=== PATIENT | female | born 1950 | race Caucasian/White ===

== ENCOUNTER 2017-02-13 09:00 | Inpatient (IN) | payer OTHER, MEDICARE ==
[~2017-02-13] VITALS: Ht 177.8 cm; Wt 114.8 kg
--- NOTE | 2017-02-13 09:15 | ED GI/GU/ABDOMINAL COMPLAINT ---
History of Present Illness General Chief Complaint: Abdominal Pain/Flank Pain Stated Complaint: ABD PAIN Source: patient, old records Exam Limitations: no limitations Allergies Coded Allergies: lactose (UNKNOWN 02/13/17) Reconcile Medications Fluticasone Propionate 50 MCG/ACTUATION SPRAY.SUSP 1 SPRAY NASB PRN POST NASAL DRIP (Reported) Psyllium Husk (Metamucil) (Unknown Strength) CAPSULE (Unknown Dose) PO DAILY SUPPLEMENT (Reported) Triage Nurses Notes Reviewed? yes LMP (ages 10-50): hysterectomy ? n Is pt currently ? No Onset: Abrupt Duration: hour(s): (12), constant, waxing and waning Timing: recent history Quality/Severity: bloating Severity Numbers: 4 Location: epigastric, left upper quadrant, right upper quadrant Radiation: no radiation Activities at Onset: eating Prior Abdominal Problems: none No Modifying Factors: none Associated Symptoms: denies HPI: 66-year-old female history of gastric bypass hysterectomy cholecystectomy aortic stenosis presents the ER for evaluation complaining of right upper quadrant epigastric and left upper quadrant abdominal pain described as a bloating sensation since 9:00 last night. She denies any nausea vomiting diarrhea. She had a small bowel movement this morning no black or bloody stools no urinary urgency frequency dysuria. Pain is nonradiating no chest pain active pain. She states the symptoms came on after eating stuffed cabbage yesterday. No sick contacts. She took an [id number] antacid without relief. She went to urgent care this morning who sent her here for further evaluation. The patient states that she did have wine with dinner last night she denies tobacco use. (Mauro SHOEMAKER,Tolu) Vital Signs & Intake/Output Vital Signs & Intake/Output Vital Signs Date Time Temp Pulse Resp B/P B/P Pulse O2 O2 Flow FiO2 Mean Ox Delivery Rate 02/13 1253 98.1 90 18 142/88 98 Room Air 02/13 1108 98.2 81 17 147/82 95 Room Air 02/13 0920 96 Room Air Room Air 02/13 0908 98.1 84 16 150/98 97 Room Air (Corina STEPHEN,Fabio Roblero) Past History Travel History Traveled to [place] past 21 day No Medical History Any Pertinent Medical History? see below for history Neurological: vertigo EENT: cataracts Cardiovascular: aortic stenosis Respiratory: pneumonia Gastrointestinal: GASTRIC BYPASS Hepatic: NONE Renal: NONE Musculoskeletal: NONE Psychiatric: NONE Endocrine: obesity Surgical History Surgical History: cholecystectomy, hysterectomy, gastric bypass Psychosocial History What is your primary language Tajik Tobacco Use: Quit >30 days ago Family History Hx Contributory? No (Tolu Bello) Review of Systems Review of Systems Constitutional: Reports: see HPI. Comments Review of systems: See HPI, All other systems negative. Constitutional, no chills no fever, no malaise HEENT: no sore throat no congestion Cardiovascular: No chest pain , no palpitation Skin: no rashes, no change in skin Respiratory: No dyspnea no cough GI: see hpi : No dysuria No hematuria, no frequency Muscle skeletal: No joint pain, no back pain Neurologic: , no headache Heme/endocrine: No bruising (Tolu Bello) Physical Exam Physical Exam General Appearance: well developed/nourished, alert, awake Gastrointestinal: normal bowel sounds Comments: Well-developed well-nourished person in no acute distress HEENT: Normal EENT exam; PERRL, EOMI, HEAD is atraumatic. moist mucous membranes. Neck: Supple, normal range of motion Back:no CVA tenderness. Full range of motion Cardiovascular: Regular rate and rhythms (+) murmur Respiratory: Chest nontender.There were no bony deformities, no asymmetry. No respiratory distress. Patient speaking in full complete sentences. Breath sounds clear to auscultation bilaterally: NO W/R/R Abdomen: Soft, nontender nondistended, no appreciable organomegaly. Normal bowel sounds. No rebound/guarding, No appreciable enlargement of the abdominal aorta, No ascites. Extremity: No edema, full range of motion of extremities Neuro: Alert oriented x3, motor sensory normal, There were no obvious focal neurologic abnormalities. Skin: No appreciable rash on exposed skin, skin is warm and dry. Psych: Mood and affect is normal, memory and judgment is normal. Core Measures ACS in differential dx? Yes Sepsis Present: No Sepsis Focused Exam Completed? No (Tolu Bello) Progress Differential Diagnosis: AAA, AMI, appendicitis, bowel obstruction, colon cancer, diverticulitis, gastritis, hepatitis, inflamm bowel dis, pancreatitis, peptic ulcer, PUD/GERD, perforated viscous, SBO Plan of Care: Orders Procedure Date/time Status CBC WITHOUT DIFFERENTIAL 02/14 599 Active BASIC ELECTROLYTES PLUS BUN&CR 01/01 0600 Active Nothing by Mouth 02/13 D Active Vital Signs 02/13 1504 Active Teach/Educate 02/13 1504 Active Pain Treatment and Response 02/13 1504 Active Nutritional Intake, Monitor 02/13 1504 Active Isolation 02/13 1504 Active Intake & Output 02/13 1504 Active Patient Care Conference 02/13 1504 Active Activity/Ambulation 02/13 1504 Active Pathway - chart 02/13 1341 Active Code Status 02/13 1341 Active Patient Data 02/13 1332 Active TROPONIN LEVEL 02/13 0915 Complete LIPASE 02/13 0915 Complete COMPREHENSIVE METABOLIC PANEL 02/13 0915 Complete CBC WITHOUT DIFFERENTIAL 02/13 0915 Complete AMYLASE 02/13 0915 Complete EKG 02/[address] in observation 02/13 UNK Active VTE Mechanical Prophylaxis 02/13 UNK Active Vital Signs 02/13 UNK Active Intake & Output 02/13 UNK Active CIWA 02/13 UNK Complete Activity/Ambulation 02/13 UNK Active Current Medications Sig/Nancy Start time Last Medication Dose Stop Time Status Admin Fluticasone 1 SPRAY DAILY NEEDED PRN 02/13 1400 AC Propionate (Flonase) Heparin Sodium 5,000 UNIT Q8 02/13 1400 AC 02/13 (Porcine) 1406 Acetaminophen 1,000 MG Q6P PRN 02/13 1345 AC (Ofirmev) N/A 1 UNIT (No Carrier) Dextrose/Sodium 1,000 ML .Q8H 02/13 1345 AC Chloride (D5-Normal Saline) Morphine Sulfate 2 MG Q3P PRN 02/13 1345 AC (Morphine) Morphine Sulfate 4 MG Q3P PRN 02/13 1345 AC (Morphine) Ondansetron HCl 4 MG Q6-PRN PRN 02/13 1345 AC (Zofran) Laboratory Tests 02/13/17 0935: Anion Gap 10, Estimated GFR > 60, BUN/Creatinine Ratio 18.6, Glucose 119 H, Calcium 9.4, Total Bilirubin 1.1, AST 42 H, ALT 34, Alkaline Phosphatase 71, Troponin I < 0.01, Total Protein 6.9, Albumin 4.2, Globulin 2.7, Albumin/ Globulin Ratio 1.6, Amylase < 30 L, Lipase 102, CBC w Diff NO MAN DIFF REQ, RBC 5.17, MCV 95.7, MCH 31.7 H, RDW 13.1, MPV 8.3, Gran % 71.5, Lymphocytes % 18.5 L, Monocytes % 8.7, Eosinophils % 1.0, Basophils % 0.3, Absolute Granulocytes 4.7, Absolute Lymphocytes 1.2, Absolute Monocytes 0.6, Absolute Eosinophils 0.1, Absolute Basophils 0, PUBS MCHC 33.1 pt is declining anything for pain when offered. labs and ct ordered. case d/w dr quevedo agrees with plan 1030 D/W THE PT ALL OF HER LABS TO DATE, AGAIN DECLINING ANYTHING WHEN OFFERED pending ct [address], on repeat eval pt resting in nad 1215 d/w the pt her ct findings, she is again declining anything fo rpain when offered. no nausea, she has had no vomiting. call placed to surgery. [address] with [address] dupont will have surgical pa eval pt 1230 CASE D/W SURGICAL PA will eval pt pt now reports to pain, toradol 30mg iv, iv fluids ordered PT will be admitted to surgical service. Diagnostic Imaging: Viewed by Me: CT Scan. Discussed w/RAD: CT Scan. Radiology Impression: PATIENT: ANTONELLA FAIRCHILD PRESENT AGE: 66 PATIENT ACCOUNT NO: [id number] : 49 LOCATION: [facility] ORDERING PHYSICIAN: Tolu SHOEMAKER SERVICE DATE: 02/13/17 EXAM TYPE: CAT - CT ABD & PELVIS W ORAL & IV CO EXAMINATION: CT ABDOMEN AND PELVIS WITH CONTRAST CLINICAL INFORMATION: History of gastric bypass. Right upper quadrant and left upper quadrant pain. History of cholecystectomy and hysterectomy. COMPARISON: None TECHNIQUE: Multidetector volumetric imaging was performed of the abdomen and pelvis following oral contrast and IV administration of 100 mL of Optiray 320 intravenous contrast. Sagittal and coronal reformatted images were obtained on the technologist's workstation. DLP: 1445 mGy-cm FINDINGS: LUNG BASES: The visualized lung bases are unremarkable. There is calcification at the aortic root and evidence of coronary artery calcification. LIVER, GALLBLADDER, AND BILIARY TREE: The right hemidiaphragm is elevated. The liver is normal in size, shape, and attenuation. No focal hepatic lesion or biliary ductal dilatation is present. Gallbladder is absent. No dilatation of the intrahepatic or extra hepatic bile ducts. PANCREAS: Unremarkable. SPLEEN: The spleen is normal in size. A benign hypodense lesion in the upper aspect of the spleen measures 1.8 cm in size and may reflect a splenic cyst. There is also a small adjacent splenule. ADRENAL GLANDS: Unremarkable. KIDNEYS AND URETERS: The kidneys are normal in size, shape, and attenuation. No hydronephrosis, hydroureter, or calculi seen. No perinephric stranding. BLADDER: Unremarkable. ABDOMINAL WALL: Evidence of extensive abdominal wall surgery with mesh with multiple bowel loops immediately deep to the mesh and a lobular contour to the abdominal wall mesh. GASTROINTESTINAL TRACT: Evidence of gastric bypass with contrast in the gastric pouch and proximal jejunum with no evidence of contrast extravasation or obstruction at this level. There is no contrast in the remnant stomach or duodenum. The proximal and mid small bowel are nondilated. There is evidence of a distal small bowel obstruction in the ileum proximal to the terminal ileum with a sharp transition zone identified in the right lower quadrant (axial image 69, series 2 and coronal image 59, series 602). This finding may be secondary to adhesions. The small bowel immediately proximal to this level is dilated up to 3.6 cm in diameter. The more proximal and mid small bowel in the central and left abdomen is nondilated. The administered oral contrast has not opacified the dilated small bowel loops at this time. A trace adjacent interloop fluid is identified with mild mesenteric edema. No additional findings. Multiple diverticula are seen in the colon with no CT manifestations of diverticulitis. These findings are most prominent in the left colon. Appendix is normal. LYMPH NODES: Normal. VASCULAR: Abdominal aortic calcification is seen. No evidence of aneurysm. PELVIC VISCERA: Status post hysterectomy. No evidence of pelvic mass. OSSEOUS STRUCTURES: Moderate facet arthropathy. Left convex lumbar scoliosis. Osteophyte formation at the bilateral acetabula. IMPRESSION: 1. Distal ileal small bowel obstruction with bowel loops dilated up to 3.6 cm and transition zone in the right lower quadrant. The administered oral contrast has not passed into dilated bowel loops. 2. Abdominal wall mesh with irregular contour to the abdominal wall. No discrete hernia is identified. 3. No evidence of obstruction at the level of the gastric bypass. DICTATED BY: Denys Craig MD DATE/TIME DICTATED:02/13/171130 CLIENT CONSULTANT:MALIKA DATE/ TIME TRANSCRIBED:02/13/171130 CONFIDENTIAL, DO NOT COPY WITHOUT APPROPRIATE AUTHORIZATION. <Electronically signed in Other Vendor System> SIGNED BY: Denys Craig MD 02/13/17 1207 Initial ED EKG: nsr at 80, lad, no acute st seg changes (Tolu Bello) Departure Departure Time of Disposition: 1310 Disposition: STILL A PATIENT Condition: Stable Clinical Impression Primary Impression: SBO (small bowel obstruction) Secondary Impressions: Abdominal pain Qualifiers: Abdominal location: generalized Qualified Code: R10.84 - Generalized abdominal pain Referrals: Erma Alfaro MD Additional Instructions: Bentyl for abdominal pain. follow up with your pmd this week, bland diet, clear liquids. return at anytime sooner with any concerns Departure Forms: Customer Survey General Discharge Information Admission Note Spoke With: Moustapha STEPHEN,Marcos Britton Documentation of Exam: Documentation of any treatments & extenuating circumstances including Concerns Regarding Discharge (functional status, medication knowledge or non-compliance, living conditions, etc.) that warrant an admission rather than observation: surgical eval, iv fluids, iv pain control, preamture discharge would be medically harmful (Tolu Bello) PA/NEIGHBORHOOD CONSERVATION OFFICER Co-Sign Statement Statement: ED Attending supervision documentation- [X] I saw and evaluated the patient. I have also reviewed all the pertinent lab results and diagnostic results. I agree with the findings and the plan of care as documented in the PA's/NEIGHBORHOOD CONSERVATION OFFICER's documentation. [X] I have reviewed the ED Record and agree with the PA's/NEIGHBORHOOD CONSERVATION OFFICER's documentation. [] Additions or exceptions (if any) to the PAs/NEIGHBORHOOD CONSERVATION OFFICER's note and plan are summarized below: [ABD PAIN, NO VOMITING, DISTAL SBO ON CT SCAN.] (Corina STEPHEN,Fabio Roblero) (Corina STEPHEN,Fabio Roblero)
[2017-02-13 10:07] LABS: ABSOLUTE BASOPHIL COUNT 0 /CUMM (0.0-0.2); ABSOLUTE EOSINOPHIL COUNT 0.1 /CUMM (0.0-0.7); ABSOLUTE GRANULOCYTE CT 4.7 /CUMM (1.4-6.5); ABSOLUTE LYMPH COUNT 1.2 /CUMM (1.2-3.4); ABSOLUTE MONOCYTE COUNT 0.6 /CUMM (0.10-0.60); BASOPHIL % 0.3 % (0.0-2.0); GRANULOCYTE % 71.5 % (42.2-75.2); HEMATOCRIT 49.4 % (37-47); MEAN CORPUSCULAR HGB 31.7 PG (27.0-31.0); MEAN CORPUSCULAR HGB CONC 33.1 G/DL (33.0-37.0); MEAN CORPUSCULAR VOLUME 95.7 FL (81.0-99.0); MEAN PLATELET VOLUME 8.3 FL (7.4-10.4); PLATELET COUNT 189 /CUMM (130-400); RBC DISTRIBUTION WIDTH 13.1 % (11.5-14.5); RED BLOOD CELL CT 5.17 /CUMM (4.20-5.40); WHITE BLOOD CELL COUNT 6.5 /CUMM (4.8-10.8)
--- NOTE | 2017-02-13 12:07 | CT SCAN REPORT ---
EXAMINATION: CT ABDOMEN AND PELVIS WITH CONTRAST CLINICAL INFORMATION: History of gastric bypass. Right upper quadrant and left upper quadrant pain. History of cholecystectomy and hysterectomy. COMPARISON: None TECHNIQUE: Multidetector volumetric imaging was performed of the abdomen and pelvis following oral contrast and IV administration of 100 mL of Optiray 320 intravenous contrast. Sagittal and coronal reformatted images were obtained on the technologist's workstation. DLP: 1445 mGy-cm FINDINGS: LUNG BASES: The visualized lung bases are unremarkable. There is calcification at the aortic root and evidence of coronary artery calcification. LIVER, GALLBLADDER, AND BILIARY TREE: The right hemidiaphragm is elevated. The liver is normal in size, shape, and attenuation. No focal hepatic lesion or biliary ductal dilatation is present. Gallbladder is absent. No dilatation of the intrahepatic or extra hepatic bile ducts. PANCREAS: Unremarkable. SPLEEN: The spleen is normal in size. A benign hypodense lesion in the upper aspect of the spleen measures 1.8 cm in size and may reflect a splenic cyst. There is also a small adjacent splenule. ADRENAL GLANDS: Unremarkable. KIDNEYS AND URETERS: The kidneys are normal in size, shape, and attenuation. No hydronephrosis, hydroureter, or calculi seen. No perinephric stranding. BLADDER: Unremarkable. ABDOMINAL WALL: Evidence of extensive abdominal wall surgery with mesh with multiple bowel loops immediately deep to the mesh and a lobular contour to the abdominal wall mesh. GASTROINTESTINAL TRACT: Evidence of gastric bypass with contrast in the gastric pouch and proximal jejunum with no evidence of contrast extravasation or obstruction at this level. There is no contrast in the remnant stomach or duodenum. The proximal and mid small bowel are nondilated. There is evidence of a distal small bowel obstruction in the ileum proximal to the terminal ileum with a sharp transition zone identified in the right lower quadrant (axial image 69, series 2 and coronal image 59, series 602). This finding may be secondary to adhesions. The small bowel immediately proximal to this level is dilated up to 3.6 cm in diameter. The more proximal and mid small bowel in the central and left abdomen is nondilated. The administered oral contrast has not opacified the dilated small bowel loops at this time. A trace adjacent interloop fluid is identified with mild mesenteric edema. No additional findings. Multiple diverticula are seen in the colon with no CT manifestations of diverticulitis. These findings are most prominent in the left colon. Appendix is normal. LYMPH NODES: Normal. VASCULAR: Abdominal aortic calcification is seen. No evidence of aneurysm. PELVIC VISCERA: Status post hysterectomy. No evidence of pelvic mass. OSSEOUS STRUCTURES: Moderate facet arthropathy. Left convex lumbar scoliosis. Osteophyte formation at the bilateral acetabula. IMPRESSION: 1. Distal ileal small bowel obstruction with bowel loops dilated up to 3.6 cm and transition zone in the right lower quadrant. The administered oral contrast has not passed into dilated bowel loops. 2. Abdominal wall mesh with irregular contour to the abdominal wall. No discrete hernia is identified. 3. No evidence of obstruction at the level of the gastric bypass.
[2017-02-13] MEDS ORDERED: METAMUCIL0.52 GM PO (13:10)
[2017-02-13] MEDS ORDERED: FLUTICASONE PRO16 GM NASB (13:10)
--- NOTE | 2017-02-13 13:42 | Admission Core Measures ---
Acute Coronary Syndrome (CM) ACS Core Measures Acute Coronary Syndrome Diagnosis No Congestive Heart Failure (NEW) CHF Core Measures Congestive Heart Failure Diagnosis No Cerebrovascular Accident (NEW) CVA Core Measures CVA/TIA Diagnosis No Venous Thromboembolism VTE Core Maddi (View Protocol) VTE Risk Factors Acute Medical Illness No Mechanical VTE Prophylaxis d/t N/A MechProphylax Ordered No VTE Pharm Prophylaxis d/t NA PharmProphylax ordered Problem List As ranked by this Provider includes Assessment & Plan 1. SBO (small bowel obstruction) HOME MEDS Home Med List Fluticasone Propionate 50 MCG/ACTUATION SPRAY.SUSP 1 SPRAY NASB PRN POST NASAL DRIP (Reported) Psyllium Husk (Metamucil) (Unknown Strength) CAPSULE (Unknown Dose) PO DAILY SUPPLEMENT (Reported)
--- NOTE | 2017-02-13 13:51 | History & Physical Pre-Op ---
Mary Pinto 02/13/17 1348: General Information and HPI MD Statement: I have seen and personally examined ANTONELLA FAIRCHILD and documented this H&P. The patient is a 66 year old F who presented with a patient stated chief complaint of [lower abdominal pain for >12hr]. Source of Information: patient, old records History of Present Illness: 66F presents to ED with complaints of lower abdominal pain (R>L) with acute onset at 9pm yesterday. Pain is decribed as constant and crampy, which started as a band across her midabdomen last evening and awoke her from sleep. She was unable to get any quality sleep overnight, and presented to an urgent care center this am, who referred her to the ED. She has been belching, denies nausea or vomiting, passed flatus last night, last normal BM was yesterday am, and has several hard small bms overnight. Denies urianry complaints. Last meal was 5pm yesterday, and felt well until 9pm. She has an extensive abdominal surgical history, none which has been performed at [place]. -open david, 2011, with wound infection complications - abdominoplasty, back lift, arm lift, thigh lift, 2007 - (?recurrent) ventral/incisional hernia repair with mesh, per pt, had to have "mesh change" - lap gastric bypass, 2003 (lost approx 200#, previous weight was 450#) - abdominal hyst, radiation (uterine ca) 1989 PMHx: vertigo, Aortic stenosis, chronic postnasal drip Drinks a bottle of wine daily. Denies tobacco or drug use. Allergies/Medications Allergies: Coded Allergies: lactose (UNKNOWN 02/13/17) Home Med list Fluticasone Propionate 50 MCG/ACTUATION SPRAY.SUSP 1 SPRAY NASB PRN POST NASAL DRIP (Reported) Psyllium Husk (Metamucil) (Unknown Strength) CAPSULE (Unknown Dose) PO DAILY SUPPLEMENT (Reported) Past History Medical History Neurological: vertigo EENT: cataracts Cardiovascular: aortic stenosis Gastrointestinal: GASTRIC BYPASS Endocrine: obesity Cancer(s): uterine ca sp hyst, RT Surgical History Pertinent Surgical History: cholecystectomy (open), cataract removal, hernia repair-ventral (with mesh, multiple operations), hysterectomy (uterine ca, sp RT 1989), lap gastric bypass, 2003, abdominoplasty, back lift, arm lift, thigh lift. 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) Exam & Diagnostic Data Last 24 Hrs of Vital Signs/I&O Vital Signs Date Time Temp Pulse Resp B/P B/P Pulse O2 O2 Flow FiO2 Mean Ox Delivery Rate 02/13 1253 98.1 90 18 142/88 98 Room Air 02/13 1108 98.2 81 17 147/82 95 Room Air 02/13 0920 96 Room Air Room Air 02/13 0908 98.1 84 16 150/98 97 Room Air Intake & Output 02/13 1600 02/13 0800 02/13 0000 Intake Total Output Total Balance Patient 253 lb Weight Weight Reported by Patient Measurement Method Physical Exam: GEN- NAD CARD- S1S2 RRR +murmur PULM- CTAB ABD- very ttp right mid-abd, no rebound/guarding, obese, many wellhealed surgical incisions- midline sternum to pubis, ruq, circumferential low abd/back Last 24 Hrs of Labs/Nicanor: Laboratory Tests 02/13/1735: Anion Gap 10, Estimated GFR > 60, BUN/Creatinine Ratio 18.6, Glucose 119 H, Calcium 9.4, Total Bilirubin 1.1, AST 42 H, ALT 34, Alkaline Phosphatase 71, Troponin I < 0.01, Total Protein 6.9, Albumin 4.2, Globulin 2.7, Albumin/ Globulin Ratio 1.6, Amylase < 30 L, Lipase 102, CBC w Diff NO MAN DIFF REQ, RBC 5.17, MCV 95.7, MCH 31.7 H, RDW 13.1, MPV 8.3, Gran % 71.5, Lymphocytes % 18.5 L, Monocytes % 8.7, Eosinophils % 1.0, Basophils % 0.3, Absolute Granulocytes 4.7, Absolute Lymphocytes 1.2, Absolute Monocytes 0.6, Absolute Eosinophils 0.1, Absolute Basophils 0, PUBS MCHC 33.1 Diagnostic Data Other Results SERVICE DATE: 02/13/17 EXAM TYPE: CAT - CT ABD & PELVIS W ORAL & IV CO EXAMINATION: CT ABDOMEN AND PELVIS WITH CONTRAST CLINICAL INFORMATION: History of gastric bypass. Right upper quadrant and left upper quadrant pain. History of cholecystectomy and hysterectomy. COMPARISON: None TECHNIQUE: Multidetector volumetric imaging was performed of the abdomen and pelvis following oral contrast and IV administration of 100 mL of Optiray 320 intravenous contrast. Sagittal and coronal reformatted images were obtained on the technologist's workstation. DLP: 1445 mGy-cm FINDINGS: LUNG BASES: The visualized lung bases are unremarkable. There is calcification at the aortic root and evidence of coronary artery calcification. LIVER, GALLBLADDER, AND BILIARY TREE: The right hemidiaphragm is elevated. The liver is normal in size, shape, and attenuation. No focal hepatic lesion or biliary ductal dilatation is present. Gallbladder is absent. No dilatation of the intrahepatic or extra hepatic bile ducts. PANCREAS: Unremarkable. SPLEEN: The spleen is normal in size. A benign hypodense lesion in the upper aspect of the spleen measures 1.8 cm in size and may reflect a splenic cyst. There is also a small adjacent splenule. ADRENAL GLANDS: Unremarkable. KIDNEYS AND URETERS: The kidneys are normal in size, shape, and attenuation. No hydronephrosis, hydroureter, or calculi seen. No perinephric stranding. BLADDER: Unremarkable. ABDOMINAL WALL: Evidence of extensive abdominal wall surgery with mesh with multiple bowel loops immediately deep to the mesh and a lobular contour to the abdominal wall mesh. GASTROINTESTINAL TRACT: Evidence of gastric bypass with contrast in the gastric pouch and proximal jejunum with no evidence of contrast extravasation or obstruction at this level. There is no contrast in the remnant stomach or duodenum. The proximal and mid small bowel are nondilated. There is evidence of a distal small bowel obstruction in the ileum proximal to the terminal ileum with a sharp transition zone identified in the right lower quadrant (axial image 69, series 2 and coronal image 59, series 602). This finding may be secondary to adhesions. The small bowel immediately proximal to this level is dilated up to 3.6 cm in diameter. The more proximal and mid small bowel in the central and left abdomen is nondilated. The administered oral contrast has not opacified the dilated small bowel loops at this time. A trace adjacent interloop fluid is identified with mild mesenteric edema. No additional findings. Multiple diverticula are seen in the colon with no CT manifestations of diverticulitis. These findings are most prominent in the left colon. Appendix is normal. LYMPH NODES: Normal. VASCULAR: Abdominal aortic calcification is seen. No evidence of aneurysm. PELVIC VISCERA: Status post hysterectomy. No evidence of pelvic mass. OSSEOUS STRUCTURES: Moderate facet arthropathy. Left convex lumbar scoliosis. Osteophyte formation at the bilateral acetabula. IMPRESSION: 1. Distal ileal small bowel obstruction with bowel loops dilated up to 3.6 cm and transition zone in the right lower quadrant. The administered oral contrast has not passed into dilated bowel loops. 2. Abdominal wall mesh with irregular contour to the abdominal wall. No discrete hernia is identified. 3. No evidence of obstruction at the level of the gastric bypass. Assessment/Plan Assessment/Plan: A: 66F with SBO, likely due to adhesions per her externsive surgical history, currently stable. P: observe in hospital NPO, IVF no NGT as s/p bypass IV meds serial labs serial abd exams prn pain meds, antiemetics hep sq, alps dw dr. Gerard As Ranked By This Provider Problem List: 1. SBO (small bowel obstruction) Moustapha STEPHEN,Marcos Britton 02/14/17 0947: Assessment/Plan Copies To: Janes STEPHEN,Denys Attending MD Review Statement Attending Statement Attending MD Statement: examined this patient, discuss w/resident/PA/TEACHING ARTIST, reviewed images Attending Assessment/Plan: 66yo woman with intestinal obstruction due to adhesions. Plan for npo, ivf, serial examination.
[2017-02-13 15:44] VITALS: BP 138/78
[2017-02-13 22:50] VITALS: BP 156/96
[2017-02-14 07:37] VITALS: BP 155/88
[2017-02-14 08:58] LABS: ABSOLUTE BASOPHIL COUNT 0 /CUMM (0.0-0.2); ABSOLUTE EOSINOPHIL COUNT 0.1 /CUMM (0.0-0.7); ABSOLUTE GRANULOCYTE CT 1.8 /CUMM (1.4-6.5); ABSOLUTE MONOCYTE COUNT 0.4 /CUMM (0.10-0.60); BASOPHIL % 0.6 % (0.0-2.0)
[2017-02-14 09:06] LABS: ABSOLUTE LYMPH COUNT 0.8 /CUMM (1.2-3.4); GRANULOCYTE % 56.7 % (42.2-75.2); MEAN CORPUSCULAR HGB 32.5 PG (27.0-31.0); MEAN CORPUSCULAR VOLUME 95.4 FL (81.0-99.0); MEAN PLATELET VOLUME 8.8 FL (7.4-10.4); PLATELET COUNT 124 /CUMM (130-400)
[2017-02-14 09:07] LABS: HEMATOCRIT 37.2 % (37-47); WHITE BLOOD CELL COUNT 3.1 /CUMM (4.8-10.8)
--- NOTE | 2017-02-14 09:31 | PN- General Surgery ---
See Addendum Subjective Subjective: hd#[address] scan yesterday, admited for bowel rest no major issues overnight deneis cp, sob, no n+v "less tenderness to right lower abdomen" +flatus, no bm Objective Vital Signs and I&Os Vital Signs Date Time Temp Pulse Resp B/P B/P Pulse O2 O2 Flow FiO2 Mean Ox Delivery Rate 02/14 0737 97.6 68 20 155/88 98 Room Air 02/13 2250 98.1 73 18 156/96 95 Room Air 02/13 1544 98.1 75 18 138/78 97 Room Air 02/13 1511 Room Air 02/13 1253 98.1 90 18 142/88 98 Room Air 02/13 1108 98.2 81 17 147/82 95 Room Air Intake & Output 02/14 1600 02/14 0800 02/14 0000 02/13 1600 02/13 0800 02/13 0000 Intake Total 1000 1060 Output Total 500 Balance 1000 560 Intake, IV 1000 1000 Intake, Oral 60 Output, Urine 500 Patient 253 lb Weight Weight Reported by Patient Measurement Method Physical Exam: cv: rrr lungs: clear abd: soflty distended hypoactive bs tender to palp right lower abd all other quadrants unremarkable ext: warm, distal cms intact Assessment/Plan Assessment/Plan admitted for sbo, less pain today plan continue bowel rest serial abd exams ivf dr dupont to see Core Measures Venous Thromboembolism VTE Risk Factors Acute Medical Illness No Mechanical VTE Prophylaxis d/t N/A MechProphylax Ordered No VTE Pharm Prophylaxis d/t NA PharmProphylax ordered
[2017-02-14 15:32] VITALS: BP 150/90
[2017-02-14 22:59] VITALS: BP 138/90
[2017-02-15 06:12] VITALS: BP 130/86
--- NOTE | 2017-02-15 08:09 | PN- General Surgery ---
See Addendum Subjective Subjective: Patient reports consuming clears yesterday and developed subsequent abdominal pain, distention and belching. She reports abdominal pain with movement and frequent belching. Denies nausea, vomiting and continues to pass flatus. Reports ambulating in the halls yesterday. Has not had a BM since Tuesday. Objective Vital Signs and I&Os Vital Signs Date Time Temp Pulse Resp B/P B/P Pulse O2 O2 Flow FiO2 Mean Ox Delivery Rate 02/15 611 98.8 75 18 130/86 94 Room Air 02/14 2259 98.3 76 20 138/90 92 Room Air 02/14 1532 98.6 71 20 150/90 95 Room Air Intake & Output 02/15 0800 02/15 0000 02/14 1600 02/14 0802/14 0000 02/13 1600 Intake Total 1000 2950 1000 1060 Output Total 500 1400 500 Balance 500 1550 1000 560 Intake, IV 1000 1750 1000 1000 Intake, Oral 1200 60 Number 0 Bowel Movements Output, Urine 500 1400 500 Patient 253 lb Weight Weight Reported by Patient Measurement Method Physical Exam: Gen: Awake and alert in NAD Cardiac: S1S2 noted, RRR Lungs: Good air entry, CTAB Abd: Obese with well-healed incisions, tympanic to percussion with faint bowel sounds, diffusely tender to light palpation with voluntary guarding, no rebound noted. Ext: No edema or calf tenderness B/L Current Medications: Current Medications Sig/Nancy Start time Last Medication Dose Route Stop Time Status Admin Acetaminophen 1,000 MG Q6P PRN 02/13 1345 AC 02/14 N/A 1 UNIT IV 1255 Artificial Tears 2 GTT 4 TIMES/DAY PRN 02/13 1930 AC 02/13 OPH 2136 Dextrose/Sodium 1,000 ML .Q8H 02/13 1345 AC 02/15 [place] 0713 Fluticasone 1 SPRAY DAILY NEEDED PRN 02/13 1400 AC 02/13 Propionate BOSSMAN 2136 Heparin Sodium 5,000 UNIT Q8 02/13 1400 AC 02/15 (Porcine) SC 0550 Melatonin 5 MG AT BEDTIME PRN 02/13 1930 AC 02/14 PO 2127 Morphine Sulfate 2 MG Q3P PRN 02/13 1345 AC 02/14 IV 0306 Morphine Sulfate 4 MG Q3P PRN 02/13 1345 AC 02/14 IV 1939 Ondansetron HCl 4 MG Q6-PRN PRN 02/13 1345 AC IV Simethicone 80 MG ONCE ONE 02/14 2214 DC 02/14 PO 02/14 2216 2876 Results Last 48 Hours of Labs: Laboratory Tests 02/14 02/13 0746 0935 Chemistry Sodium (137 - 145 mmol/L) 137 138 Potassium (3.5 - 5.1 mmol/L) 4.5 4.5 Chloride (98 - 107 mmol/L) 107 100 Carbon Dioxide (22 - 30 mmol/L) 27 28 Anion Gap (5 - 16) 4 L 10 BUN (7 - 17 mg/dL) 15 13 Creatinine (0.5 - 1.0 mg/dL) 0.6 0.7 Estimated GFR (>60 ml/min) > 60 > 60 BUN/Creatinine Ratio (7 - 25 %) 25.0 18.6 Glucose (65 - 99 mg/dL) 119 H Calcium (8.4 - 10.2 mg/dL) 9.4 Total Bilirubin (0.2 - 1.3 mg/dL) 1.1 AST (14 - 36 U/L) 42 H ALT (9 - 52 U/L) 34 Alkaline Phosphatase (<127 U/L) 71 Troponin I (< 0.11 ng/ml) < 0.01 Total Protein (6.3 - 8.2 g/dL) 6.9 Albumin (3.5 - 5.0 g/dL) 4.2 Globulin (1.9 - 4.2 gm/dL) 2.7 Albumin/Globulin Ratio (1.1 - 2.2 %) 1.6 Amylase (30 - 110 U/L) < 30 L Lipase (23 - 300 U/L) 102 Hematology CBC w Diff NO MAN DIFF REQ NO MAN DIFF REQ WBC (4.8 - 10.8 /CUMM) 3.1 L 6.5 RBC (4.20 - 5.40 /CUMM) 3.90 L 5.17 Hgb (12.0 - 16.0 G/DL) 12.7 16.4 H Hct (37 - 47 %) 37.2 49.4 H MCV (81.0 - 99.0 FL) 95.4 95.7 MCH (27.0 - 31.0 PG) 32.5 H 31.7 H RDW (11.5 - 14.5 %) 13.0 13.1 Plt Count (130 - 400 /CUMM) 124 L 189 MPV (7.4 - 10.4 FL) 8.8 8.3 Gran % (42.2 - 75.2 %) 56.7 71.5 Lymphocytes % (20.5 - 51.1 %) 27.4 18.5 L Monocytes % (1.7 - 9.3 %) 13.3 H 8.7 Eosinophils % (0 - 5 %) 2.0 1.0 Basophils % (0.0 - 2.0 %) 0.6 0.3 Absolute Granulocytes (1.4 - 6.5 /CUMM) 1.8 4.7 Absolute Lymphocytes (1.2 - 3.4 /CUMM) 0.8 L 1.2 Absolute Monocytes (0.10 - 0.60 /CUMM) 0.4 0.6 Absolute Eosinophils (0.0 - 0.7 /CUMM) 0.1 0.1 Absolute Basophils (0.0 - 0.2 /CUMM) 0 0 PUBS MCHC (33.0 - 37.0 G/DL) 34.0 33.1 Assessment/Plan Assessment/Plan This is a 66 year-old female with an extensive past surgical history presented with SBO likely due to adhesions on CIWA with return of abdominal pain, distention and bleching after liquid diet advancement Order AXR to reeval sbo Bowel rest, IVF Cont pain regimen Serial abdominal exams GI and DVT ppx on board Will d/w Dr. Gerard Core Measures Venous Thromboembolism VTE Risk Factors Acute Medical Illness No Mechanical VTE Prophylaxis d/t N/A MechProphylax Ordered No VTE Pharm Prophylaxis d/t NA PharmProphylax ordered
--- NOTE | 2017-02-15 08:52 | RADIOLOGY REPORT ---
EXAMINATION: XR ABDOMEN MULTIPLE VIEWS CLINICAL INDICATION: Reevaluate small bowel obstruction COMPARISON: CT from 02/13/2017 TECHNIQUE: 2 views of the abdomen. FINDINGS: Mildly prominent gas-filled loops of small bowel are seen in the central abdomen. The appearance is similar to that of the sagger filler radiograph from the prior CT. Scattered gas and stool are seen in the colon. There is no evidence of free air. Elevated right hemidiaphragm. Degenerative changes throughout the spine. IMPRESSION: Mildly prominent gas-filled small bowel in the central abdomen with a similar appearance to previous. This is consistent with a continued small bowel obstruction.
--- NOTE | 2017-02-15 11:18 | Patient Discharge Instructions ---
Discharge Instructions General Discharge Information You were seen/treated for: Small bowel obstruction You had these procedures: None Watch for these problems: Increased abdominal pain, distention, nausea, vomiting, inability to pass gas/ move your bowels Diet Continue normal diet: No Recommended Diet: Low Residue Activity Full Activity/No Limits: Yes Acute Coronary Syndrome Inclusion Criteria At DC or during hospital stay patient has or had the following: ACS DIAGNOSIS No Discharge Core Measures Meds if any: Prescribed or Continued at Discharge Meds if any: NOT Prescribed or Continued at Discharge Congestive Heart Failure Inclusion Criteria At DC or during hospital stay patient has or had the following: CHF DIAGNOSIS No Discharge Core Measures Meds if any: Prescribed or Continued at Discharge Meds if any: NOT Prescribed or Continued at Discharge Cerebrovascular accident Inclusion Criteria At DC or during hospital stay patient has or had the following: CVA/TIA Diagnosis No Discharge Core Measures Meds if any: Prescribed or Continued at Discharge Meds if any: NOT Prescribed or Continued at Discharge Venous thromboembolism Inclusion Criteria VTE Diagnosis No VTE Type NONE VTE Confirmed by (Test) NONE Discharge Core Measures - Per Current guidelines, there needs to be overlap - treatment for the first 5 days of Warfarin therapy. - If discharged on Warfarin prior to 5 days of - overlap therapy, the patient will need to be - assessed for post discharge needs including - *Post discharge parental anticoagulation - *Warfarin and/or parental anticoagulation education - *Follow up date to check INR post discharge At least 5 days overlap therapy as Inpatient No Meds if any: Prescribed or Continued at Discharge Note: Overlap Therapy is Warfarin and Anticoagulant Meds if any: NOT Prescribed or Continued at Discharge
[2017-02-15 14:46] VITALS: BP 132/76
[2017-02-15 22:58] VITALS: BP 124/80
[2017-02-16 06:38] VITALS: BP 110/60
--- NOTE | 2017-02-16 07:34 | PN- General Surgery ---
See Addendum Subjective Subjective: Reports large bm yesterday and passing a lot of gas. Denies abdominal pain. No nausea. Tolerating clears. Reports hunger this morning. Voiding well. Walking without difficulty. Objective Vital Signs and I&Os Vital Signs Date Time Temp Pulse Resp B/P B/P Pulse O2 O2 Flow FiO2 Mean Ox Delivery Rate 02/16 0638 98.5 80 20 110/60 98 Room Air 02/15 2258 98.6 68 20 124/80 94 Room Air 02/15 1446 99.0 76 20 132/76 94 Room Air Intake & Output 02/16 0800 02/16 0000 02/15 1600 02/15 0800 02/15 0000 02/14 1600 Intake Total 0415 190 6500 1000 2950 Output Total 250 350 532 443 9582 Balance 555 24 [id number] 289 2217 Intake, IV 1559 516 0360 1000 1750 Intake, Oral 240 1200 Number 1 0 Bowel Movements Output, Urine 250 350 054 384 5542 Patient 253 lb Weight Physical Exam: General - alert & oriented x 3. comfortable. no acute distress. Lungs - clear bilaterally. no w/r/r. Cardiac - s1s2. reg. Abdomen - obese. active bowel sounds. nontender. nondistended. Extremities - warm bilaterally. no c/c/e. calves soft and nontender b/l. Current Medications: Current Medications Sig/Nancy Start time Last Medication Dose Route Stop Time Status Admin Acetaminophen 1,000 MG .STK-MED ONE 02/16 2136 DC IV 02/15 2137 Acetaminophen 1,000 MG Q6P PRN 02/13 1345 02/15 N/A 1 UNIT IV 2138 Artificial Tears 2 GTT 4 TIMES/DAY PRN 02/13 193 AC 02/13 OPH 2136 Dextrose/Sodium 1,000 ML .Q8H 02/13 1345 DC 02/16 Chloride IV 0202 Fluticasone 1 SPRAY DAILY NEEDED PRN 02/13 1400 AC 02/15 Propionate BOSSMAN 9 Heparin Sodium 5,000 UNIT Q8 02/13 1400 AC 02/15 (Porcine) SC 2138 Lorazepam 0 Q1P PRN 02/15 1000 AC IV Melatonin 5 MG .STK-MED ONE 02/15 2135 DC PO 02/16 2136 Melatonin 5 MG AT BEDTIME PRN 02/13 1930 AC 02/15 PO 2137 Morphine Sulfate 2 MG Q3P PRN 02/13 1345 AC 02/14 IV 0306 Morphine Sulfate 4 MG Q3P PRN 02/13 1345 AC 02/14 IV 1939 Ondansetron HCl 4 MG Q6-PRN PRN 02/13 1345 IV Pantoprazole Sodium 40 MG DAILY 02/15 1000 AC 02/15 IV 0954 Results Last 48 Hours of Labs: Laboratory Tests 02/14 0746 Chemistry Sodium (137 - 145 mmol/L) 137 Potassium (3.5 - 5.1 mmol/L) 4.5 Chloride (98 - 107 mmol/L) 107 Carbon Dioxide (22 - 30 mmol/L) 27 Anion Gap (5 - 16) 4 L BUN (7 - 17 mg/dL) 15 Creatinine (0.5 - 1.0 mg/dL) 0.6 Estimated GFR (>60 ml/min) > 60 BUN/Creatinine Ratio (7 - 25 %) 25.0 Hematology CBC w Diff NO MAN DIFF REQ WBC (4.8 - 10.8 /CUMM) 3.1 L RBC (4.20 - 5.40 /CUMM) 3.90 L Hgb (12.0 - 16.0 G/DL) 12.7 Hct (37 - 47 %) 37.2 MCV (81.0 - 99.0 FL) 95.4 MCH (27.0 - 31.0 PG) 32.5 H RDW (11.5 - 14.5 %) 13.0 Plt Count (130 - 400 /CUMM) 124 L MPV (7.4 - 10.4 FL) 8.8 Gran % (42.2 - 75.2 %) 56.7 Lymphocytes % (20.5 - 51.1 %) 27.4 Monocytes % (1.7 - 9.3 %) 13.3 H Eosinophils % (0 - 5 %) 2.0 Basophils % (0.0 - 2.0 %) 0.6 Absolute Granulocytes (1.4 - 6.5 /CUMM) 1.8 Absolute Lymphocytes (1.2 - 3.4 /CUMM) 0.8 L Absolute Monocytes (0.10 - 0.60 /CUMM) 0.4 Absolute Eosinophils (0.0 - 0.7 /CUMM) 0.1 Absolute Basophils (0.0 - 0.2 /CUMM) 0 PUBS MCHC (33.0 - 37.0 G/DL) 34.0 Assessment/Plan Assessment/Plan This 66 year-old female with an extensive past surgical history presented with SBO likely due to adhesions, who seems to be improving clinically tolerating clears. d/c iv fluids. try fulls / toast this morning f/u xray and labs likely advance diet if tolerating fulls and xray shows sbo resolution encouraged oob/ambulation hep sc / alps - dvt ppx possible d/c home soon if xray better and tolerating diet advancement will d/w Core Measures Venous Thromboembolism VTE Risk Factors Acute Medical Illness No Mechanical VTE Prophylaxis d/t N/A MechProphylax Ordered No VTE Pharm Prophylaxis d/t NA PharmProphylax ordered
[2017-02-16 08:31] LABS: ABSOLUTE BASOPHIL COUNT 0 /CUMM (0.0-0.2); ABSOLUTE EOSINOPHIL COUNT 0.1 /CUMM (0.0-0.7); ABSOLUTE GRANULOCYTE CT 2.5 /CUMM (1.4-6.5); ABSOLUTE LYMPH COUNT 0.9 /CUMM (1.2-3.4); ABSOLUTE MONOCYTE COUNT 0.5 /CUMM (0.10-0.60); BASOPHIL % 0.5 % (0.0-2.0); EOSINOPHIL % 2.1 % (0-5); GRANULOCYTE % 62.4 % (42.2-75.2); MEAN CORPUSCULAR HGB 32.7 PG (27.0-31.0); MEAN CORPUSCULAR HGB CONC 34.4 G/DL (33.0-37.0); MEAN CORPUSCULAR VOLUME 95.2 FL (81.0-99.0); MEAN PLATELET VOLUME 8.5 FL (7.4-10.4); PLATELET COUNT 129 /CUMM (130-400); RBC DISTRIBUTION WIDTH 12.8 % (11.5-14.5); RED BLOOD CELL CT 3.99 /CUMM (4.20-5.40)
--- NOTE | 2017-02-16 11:57 | RADIOLOGY REPORT ---
EXAMINATION: XR ABDOMEN MULTIPLE VIEWS CLINICAL INDICATION: Presumptive diagnosis of small bowel obstruction. Reevaluate. COMPARISON: Abdomen film from 02/15/2017. CT scan of the abdomen and pelvis dated 02/13/2017. TECHNIQUE: 2 views of the abdomen performed on 4 images. FINDINGS: Again seen is abnormal distention of small bowel loops in the mid abdomen measuring up to 5 cm in diameter. Several air-fluid levels are seen on the upright view. There is gas seen in the rectosigmoid colon and some contrast is noted in the left descending colon and sigmoid colon. Findings are suspicious for a partial small bowel obstruction. Findings are similar to the previous exam. No evidence of perforation is seen though evaluation is slightly limited in this regard. There is an S-shaped thoracolumbar scoliosis with multilevel degenerative changes in the thoracolumbar spine. IMPRESSION: Persistent partial small bowel obstruction, not significantly changed compared to prior exams.
--- NOTE | 2017-02-16 15:41 | Surgical Discharge Summary ---
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 2007 Psychosocial History Where Do You Live? Home What is Your Primary Language? Latvian Review of Systems: SEE PREOP [facility] Hospital Course Course Attending Physician: Marcos Gerard MD Primary Care Physician: Janes STEPHENDenys [facility] Course: patient admitted to surgical service. She was kept npo for bowel obstruction. No NGT was placed due to gastrointestinal bypass status. She had return of flatus and was started on clear liquids. She experienced abdominal pain, short lived after drinking. It resolved. XRay showed persistent mild dilatation of small bowel. However her pain resolved, she continued to have flatus and passed two bowel movements. She was discharged to home. Allergies: Coded Allergies: lactose (UNKNOWN 02/13/17) Disposition Summary Disposition Principal Diagnosis: Intestinal obstruction Additional Diagnosis: none Discharge Disposition: home or self care Discharge Instructions General Discharge Information Code Status: Full Code Patient's Diet: regular Patient's Activity: self limited Follow-Up Instructions/Appts: PCP as needed. Medications at Discharge Discharge Medications: Stop taking the following medications: Psyllium Husk (Metamucil) (Unknown Strength) CAPSULE ORAL DAILY Continue taking these medications: Fluticasone Propionate (Fluticasone Propionate) 50 MCG/ACTUATION SPRAY.SUSP 1 [place] Both sides of nose as needed for POST NASAL DRIP Qty = 16 Comments: Last Taken: 02/15/17 Time: 9:40 PM Copies To: Janes STEPHENDenys
== END 2017-02-16 15:45 | DRG 390 ==
LOC: ERH 09:00 → ERHI 13:32 → ENRESERV 14:07 → ENTRNSPT 14:16 → EDTRNSPTSTS 14:26 → EDTRNSPT 14:26 → 2NB 14:31 → CMPTRNSPT 14:46 → 2NB 02-15 10:11 → ENPENDDIS 02-16 14:11 → ENTRNSPT 02-16 15:37 → 2NB 02-16 15:45 → EDTRNSPT 02-16 15:51 → EDTRNSPTSTS 02-16 15:51 → CMPTRNSPT 02-16 16:14
PROVIDERS: Physician Assistant Medical; Physician Assistant Surgical
DX: K56.50 Intestinal adhesions [bands], unspecified as to partial versus complete obstruction (principal); E66.9 Obesity, unspecified; Z68.36 Body mass index [BMI] 36.0-36.9, adult; I35.0 Nonrheumatic aortic (valve) stenosis; Z98.84 Bariatric surgery status; Z85.42 Personal history of malignant neoplasm of other parts of uterus
CPT/HCPCS: 2NBP; 36415; 74021; 74177; 82436; 93005; 93010; 96361; 96374; J0131; J1644; J1885; J2405; J7042

== ENCOUNTER 2017-02-18 09:01 | Inpatient (IN) | payer OTHER, MEDICARE ==
[~2017-02-18] VITALS: Ht 177.8 cm; Wt 114.8 kg
[~2017-02-18 09:01] MED LIST: FLUTICASONE PRO16 GM NASB; METAMUCIL0.52 GM PO
[2017-02-18 09:38] LABS: ABSOLUTE BASOPHIL COUNT 0 /CUMM (0.0-0.2); ABSOLUTE EOSINOPHIL COUNT 0.1 /CUMM (0.0-0.7); ABSOLUTE LYMPH COUNT 0.8 /CUMM (1.2-3.4); ABSOLUTE MONOCYTE COUNT 0.7 /CUMM (0.10-0.60); MEAN PLATELET VOLUME 8.1 FL (7.4-10.4); WHITE BLOOD CELL COUNT 4.9 /CUMM (4.8-10.8)
[2017-02-18 09:41] LABS: ABSOLUTE GRANULOCYTE CT 3.2 /CUMM (1.4-6.5); BASOPHIL % 0.5 % (0.0-2.0); GRANULOCYTE % 66.1 % (42.2-75.2); HEMATOCRIT 42.6 % (37-47); MEAN CORPUSCULAR HGB 32.6 PG (27.0-31.0); MEAN CORPUSCULAR HGB CONC 34.8 G/DL (33.0-37.0); MEAN CORPUSCULAR VOLUME 93.7 FL (81.0-99.0); PLATELET COUNT 187 /CUMM (130-400); RBC DISTRIBUTION WIDTH 12.6 % (11.5-14.5); RED BLOOD CELL CT 4.55 /CUMM (4.20-5.40)
[2017-02-18 09:51] LABS: PT 11.9 SEC (9.4-12.5); PTT 30 SEC (25-37)
--- NOTE | 2017-02-18 10:03 | RADIOLOGY REPORT ---
EXAMINATION: XR ABDOMEN MULTIPLE VIEWS CLINICAL INDICATION: Small bowel obstruction. Mid abdominal pain. Evaluate for worsening bowel obstruction. COMPARISON: 02/15/2017 and 02/16/2017 TECHNIQUE: 2 views of the abdomen. FINDINGS: Within the mid and upper abdomen, small bowel remains abnormally dilated -- similar in appearance compared to 02/15/2017. There is no appreciable worsening of the obstruction. Again noted is gas within the nondistended colon and rectum. No pneumatosis intestinalis, pneumoperitoneum or other significant interval change. IMPRESSION: No evidence of worsening of the persistent small bowel obstruction.
--- NOTE | 2017-02-18 10:48 | ED GI/GU/ABDOMINAL COMPLAINT ---
History of Present Illness General Chief Complaint: General Adult Stated Complaint: FAY DUPONT FOR EVAL DX SBO Source: patient, old records Exam Limitations: no limitations Vital Signs & Intake/Output Vital Signs & Intake/Output Vital Signs Date Time Temp Pulse Resp B/P B/P Pulse O2 O2 Flow FiO2 Mean Ox Delivery Rate 02/18 1139 99.1 83 20 117/76 95 Room Air 02/18 0911 97.5 82 15 136/82 94 Room Air Room Air Allergies Coded Allergies: lactose ("SNIFFLES" 02/18/17) Reconcile Medications Fluticasone Propionate 50 MCG/ACTUATION SPRAY.SUSP 1 SPRAY NASB PRN POST NASAL DRIP (Reported) Triage Note: PT SENT TO ED BY DR. DUPONT FOR FURTHER EVALUATION OF SBO. PT WAS ADMITTED TO ED LAST TUESDAY UNTIL TUESDAY. PER PT, "THEY THOUGHT THE SBO RESOLVED ITSELF." PT REPORTS INTERMITTENT ABD PAIN WITH HICCUPS, LAST BM THIS MORNING AND "LAST NIGHT I HAD HARD MARBLE LIKE STOOL". DENIES N/V. +ABD DISTENTION. CURRENT PAIN 02/23 IN TRIAGE. Triage Nurses Notes Reviewed? yes ? n Is pt currently ? No Onset: Abrupt Duration: day(s): (4), intermittent Timing: recent history Quality/Severity: fullness Severity Numbers: 5 Location: left lower quadrant, right lower quadrant Radiation: back Activities at Onset: none Prior Abdominal Problems: similar symptoms No Modifying Factors: none Associated Symptoms: denies HPI: 66-year-old female with history of recent admission for which she was discharged 2 days ago for SBO presents sent in by her surgeon Dr. dupont for evaluation. The patient states that she went home 2 days ago and was feeling better. She states that she was eating and drinking when she was discharged normally no nausea no vomiting and no pain. She states that yesterday she had bilateral lower quadrant pain described as "feeling compacted" that was radiating around into her back. She states she did not pass any gas yesterday. Patient states late last night she had a hard small bowel movement. The pain has been coming in waves since. She denies any fever chills nausea vomiting. She is not taken anything for symptoms and is declining anything for pain when offered. (Mauro SHOEMAKER,Tolu) Past History Travel History Traveled to [place] past 21 day No Medical History Any Pertinent Medical History? 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 2008 Psychosocial History What is your primary language Maori Tobacco Use: Quit >30 days ago ETOH Use: occasional use Illicit Drug Use: denies illicit drug use Family History Hx Contributory? No (Tolu Bello) Review of Systems Review of Systems Constitutional: Reports: see HPI. Comments Review of systems: See HPI, All other systems negative. Constitutional, no chills no fever, no malaise HEENT: no sore throat no congestion Cardiovascular: No chest pain , no palpitation Skin: no rashes, no change in skin Respiratory: No dyspnea no cough no sputum GI: No nausea no vomiting, no diarrhea : No dysuria No hematuria Muscle skeletal: No joint pain, no back pain, no neck pain, Neurologic: , no headache Heme/endocrine: No bruising Immunology: No lymphadenopathy (Tolu Bello) Physical Exam Physical Exam General Appearance: well developed/nourished, alert, awake Gastrointestinal: soft, non-tender, distention Comments: Well-developed well-nourished person in no acute distress HEENT: Normal EENT exam; PERRL, EOMI, HEAD is atraumatic. moist mucous membranes. Neck: Supple, normal range of motion Back: Nontender, Full range of motion Cardiovascular: Regular rate and rhythms (+) murmur Respiratory: No respiratory distress. Patient speaking in full complete sentences. Breath sounds clear to auscultation bilaterally: NO W/R/R Abdomen: Soft, nontender, distended, no appreciable organomegaly. Normal bowel sounds. No rebound/guarding, No ascites. Extremity: No edema, full range of motion of extremities Neuro: Alert oriented x3, motor sensory normal, There were no obvious focal neurologic abnormalities. Skin: No appreciable rash on exposed skin, skin is warm and dry. Psych: Mood and affect is normal, memory and judgment is normal. Core Measures ACS in differential dx? No Sepsis Present: No Sepsis Focused Exam Completed? No (Tolu Bello) Progress Differential Diagnosis: SBO, MALIGNANCY, ILEUS Plan of Care: Orders Procedure Date/time Status Nothing by Mouth 02/18 D Active Code Status 02/18 1500 Active URINALYSIS 02/18 907 Active PARTIAL THROMBOPLASTIN TIME 02/18 907 Complete PROTHROMBIN TIME 02/18 907 Complete LACTIC ACID 02/18 907 Complete COMPREHENSIVE METABOLIC PANEL 02/18 907 Complete CBC WITHOUT DIFFERENTIAL 02/18 907 Complete EKG 02/18 907 Active TYPE & SCREEN (NOT X-MATCH) 02/18 907 Complete Laboratory Tests 02/18/17 1208: Lactic Acid Cancelled 02/18/17 0925: Anion Gap 11, Estimated GFR > 60, BUN/Creatinine Ratio 18.6, Glucose 114 H, Lactic Acid 0.8, Calcium 8.3 L, Total Bilirubin 1.9 H, AST 32, ALT 45, Alkaline Phosphatase 54, Total Protein 5.8 L, Albumin 3.3 L, Globulin 2.5, Albumin/Globulin Ratio 1.3, PT 11.9, INR 1.13, APTT 30, CBC w Diff NO MAN DIFF REQ, RBC 4.55, MCV 93.7, MCH 32.6 H, RDW 12.6, MPV 8.1, Gran % 66.1, Lymphocytes % 17.0 L, Monocytes % 15.4 H, Eosinophils % 1.0, Basophils % 0.5, Absolute Granulocytes 3.2, Absolute Lymphocytes 0.8 L, Absolute Monocytes 0.7 H, Absolute Eosinophils 0.1, Absolute Basophils 0, PUBS MCHC 34.8 Dr. Dupont came down to evaluate the patient while I was speaking with her evaluated the patient discussed with her her options he'll take her to the operating room for laparoscopic possible lysis of adhesions. Patient is declining anything for pain when offered labs x-ray were reviewed with the patient. Case discussed with Dr. PICHARDO agrees with plan Diagnostic Imaging: Viewed by Me: Radiology Read. Discussed w/RAD: Radiology Read. Radiology Impression: PATIENT: ANTONELLA FAIRCHILD PRESENT AGE: 66 PATIENT ACCOUNT NO: [id number] : 49 LOCATION: [facility] ORDERING PHYSICIAN: Lidia Pichardo MD SERVICE DATE: 02/18/17 EXAM TYPE: RAD - [id number] VIEWS EXAMINATION: XR ABDOMEN MULTIPLE VIEWS CLINICAL INDICATION: Small bowel obstruction. Mid abdominal pain. Evaluate for worsening bowel obstruction. COMPARISON: 02/15/2017 and 02/16/2017 TECHNIQUE: 2 views of the abdomen. FINDINGS: Within the mid and upper abdomen, small bowel remains abnormally dilated -- similar in appearance compared to 02/15/2017. There is no appreciable worsening of the obstruction. Again noted is gas within the nondistended colon and rectum. No pneumatosis intestinalis, pneumoperitoneum or other significant interval change. IMPRESSION: No evidence of worsening of the persistent small bowel obstruction. DICTATED BY: Parmjit Mclaughlin MD DATE/TIME DICTATED:02/18/17955 PHARMACEUTICAL OFFICER:MALIKA DATE/TIME TRANSCRIBED:955 CONFIDENTIAL, DO NOT COPY WITHOUT APPROPRIATE AUTHORIZATION. < Electronically signed in Other Vendor System> SIGNED BY: Parmjit Mclaughlin MD 02/18/17 1003, PATIENT: ANTONELLA FAIRCHILD PRESENT AGE: 66 PATIENT ACCOUNT NO: [id number] : 49 LOCATION: [facility] ORDERING PHYSICIAN: Tolu SHOEMAKER SERVICE DATE: 02/18/17 EXAM TYPE: RAD - XRY-PORTABLE CHEST XRAY EXAMINATION: XR PORTABLE CHEST CLINICAL INFORMATION: Preop small bowel obstruction. COMPARISON: Abdominal radiography earlier today. TECHNIQUE: Portable frontal view of the chest was obtained. FINDINGS: Mild asymmetric elevation of the right hemidiaphragm. There is linear opacification at the right lung base, consistent with subsegmental atelectasis. No pulmonary edema, consolidation suspicious for pneumonia, pleural effusion, or pneumothorax. No mediastinal widening. No acute osseous abnormalities. IMPRESSION: Right basilar subsegmental atelectasis. Otherwise, no acute pulmonary pathology. DICTATED BY: Jd Gallegos MD DATE/TIME DICTATED:02/18/171106 PHARMACEUTICAL OFFICER:MALIKA DATE/TIME TRANSCRIBED:02/18/171106 CONFIDENTIAL, DO NOT COPY WITHOUT APPROPRIATE AUTHORIZATION. <Electronically signed in Other Vendor System> SIGNED BY: Jd Gallegos MD 02/18/17 1112 Initial ED EKG: NSR AT 80, NO ACUTE ST SEG CHAGNES, NROMAL AXIS Prior EKG: unchanged (Tolu Bello) Departure Departure Time of Disposition: 1048 Disposition: STILL A PATIENT Condition: Stable Clinical Impression Primary Impression: SBO (small bowel obstruction) Referrals: Denys Marrero MD (PCP/Family) Departure Forms: Customer Survey General Discharge Information OR/GI Note Spoke With: Moustapha STEPHEN,Marcos Britton ED Treatment Decision: ANTONELLA FAIRCHILD requires urgent operative management or an emergent procedure that cannot be performed in the Emergency Room setting. Transport To: [facility] (Tolu Bello) PA/MD PEDIATRIC ALLERGIST Co-Sign Statement Statement: ED Attending supervision documentation- [X] I saw and evaluated the patient. I have also reviewed all the pertinent lab results and diagnostic results. I agree with the findings and the plan of care as documented in the PA's/MD PEDIATRIC ALLERGIST's documentation. [X] I have reviewed the ED Record and agree with the PA's/MD PEDIATRIC ALLERGIST's documentation. [] Additions or exceptions (if any) to the PAs/MD PEDIATRIC ALLERGIST's note and plan are summarized below: [] (Marino STEPHEN,Lidia)
--- NOTE | 2017-02-18 11:12 | RADIOLOGY REPORT ---
EXAMINATION: XR PORTABLE CHEST CLINICAL INFORMATION: Preop small bowel obstruction. COMPARISON: Abdominal radiography earlier today. TECHNIQUE: Portable frontal view of the chest was obtained. FINDINGS: Mild asymmetric elevation of the right hemidiaphragm. There is linear opacification at the right lung base, consistent with subsegmental atelectasis. No pulmonary edema, consolidation suspicious for pneumonia, pleural effusion, or pneumothorax. No mediastinal widening. No acute osseous abnormalities. IMPRESSION: Right basilar subsegmental atelectasis. Otherwise, no acute pulmonary pathology.
--- NOTE | 2017-02-18 12:42 | History & Physical Pre-Op ---
Lucía Mtz 02/18/17 1241: General Information and HPI MD Statement: I have seen and personally examined ANTONELLA FAIRCHILD and documented this H&P. The patient is a 66 year old F who presented with a patient stated chief complaint of [recurrent abdominal pain]. History of Present Illness: This 66 year old female with hx multiple abdominal surgeries including lap gastric bypass (2003), vertigo, and aortic stenosis, presents 2 days after discharge for a seemingly resolved partial small bowel obstruction, with recurrent abdominal pain. She states the pain is intermittent and crampy. She currently denies nausea and vomiting. Reportedly passing some flatus and has had small bowel movements, as recent as overnight. She denies fevers, chills, and sweats. No dizziness. No shortness of breath. No chest pains. Voiding without difficulty. Her past surgical history includes: open david (2011) with wound infection complications abdominoplasty, back lift, arm lift, thigh lift (2007) (?recurrent) ventral/incisional hernia repair with mesh, per pt, had to have "mesh change" lap gastric bypass, (2003), with 200lb weight loss abdominal hyst, radiation for hx uterine ca (1989) Allergies/Medications Allergies: Coded Allergies: lactose ("SNIFFLES" 02/18/17) Home Med list Fluticasone Propionate 50 MCG/ACTUATION SPRAY.SUSP 1 SPRAY NASB PRN POST NASAL DRIP (Reported) Past History Medical History Neurological: vertigo EENT: cataracts Cardiovascular: aortic stenosis Respiratory: NONE Gastrointestinal: GASTRIC BYPASS SBO Hepatic: NONE Renal: NONE Musculoskeletal: NONE Psychiatric: NONE Endocrine: obesity Blood Disorders: ITP Cancer(s): uterine ca sp hyst, RT 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 2008 Past Family/Social History Psychosocial History ETOH Use: heavy use, bottle of wine daily Illicit Drug Use: denies illicit drug use Functional Ability Ambulation: independent Review of Systems Review of Systems: admits: recurrent abdominal pain denies: fevers/chills/sweats, dizziness, shortness of breath, chest pains, dysuria Exam & Diagnostic Data Last 24 Hrs of Vital Signs/I&O Vital Signs Date Time Temp Pulse Resp B/P B/P Pulse O2 O2 Flow FiO2 Mean Ox Delivery Rate 02/18 1139 99.1 83 20 117/76 95 Room Air 02/18 0911 97.5 82 15 136/82 94 Room Air Room Air Intake & Output 02/18 1600 02/18 0800 02/18 0000 Intake Total Output Total Balance Patient 253 lb Weight Weight Reported by Patient Measurement Method Physical Exam: General - alert & oriented x 3. uncomfortable. no acute distress. Skin - warm, dry, and smooth. no rashes noted. Lungs - decreased breath sounds b/l. Cardiac - s1s2. reg. +jason Abdomen - obese. jasson-umbilical tenderness. softly distended. active bowel sounds appreciated. Extremities - warm bilaterally. trace edema b/l legs. chronic venous stasis changes b/l legs. palpable pulses distally, equal. Neuro - speech smooth and coordinated. no focal deficits. Last 24 Hrs of Labs/Nicanor: Laboratory Tests 02/18/17 1208: Lactic Acid Cancelled 02/18/17 0925: Anion Gap 11, Estimated GFR > 60, BUN/Creatinine Ratio 18.6, Glucose 114 H, Lactic Acid 0.8, Calcium 8.3 L, Total Bilirubin 1.9 H, AST 32, ALT 45, Alkaline Phosphatase 54, Total Protein 5.8 L, Albumin 3.3 L, Globulin 2.5, Albumin/Globulin Ratio 1.3, PT 11.9, INR 1.13, APTT 30, CBC w Diff NO MAN DIFF REQ, RBC 4.55, MCV 93.7, MCH 32.6 H, RDW 12.6, MPV 8.1, Gran % 66.1, Lymphocytes % 17.0 L, Monocytes % 15.4 H, Eosinophils % 1.0, Basophils % 0.5, Absolute Granulocytes 3.2, Absolute Lymphocytes 0.8 L, Absolute Monocytes 0.7 H, Absolute Eosinophils 0.1, Absolute Basophils 0, PUBS MCHC 34.8 Diagnostic Data CXR Results EXAM TYPE: RAD - XRY-PORTABLE CHEST XRAY EXAMINATION: XR PORTABLE CHEST CLINICAL INFORMATION: Preop small bowel obstruction. COMPARISON: Abdominal radiography earlier today. TECHNIQUE: Portable frontal view of the chest was obtained. FINDINGS: Mild asymmetric elevation of the right hemidiaphragm. There is linear opacification at the right lung base, consistent with subsegmental atelectasis. No pulmonary edema, consolidation suspicious for pneumonia, pleural effusion, or pneumothorax. No mediastinal widening. No acute osseous abnormalities. IMPRESSION: Right basilar subsegmental atelectasis. Otherwise, no acute pulmonary pathology. Other Results EXAM TYPE: RAD - [id number] VIEWS EXAMINATION: XR ABDOMEN MULTIPLE VIEWS CLINICAL INDICATION: Small bowel obstruction. Mid abdominal pain. Evaluate for worsening bowel obstruction. COMPARISON: 02/15/2017 and 02/16/2017 TECHNIQUE: 2 views of the abdomen. FINDINGS: Within the mid and upper abdomen, small bowel remains abnormally dilated -- similar in appearance compared to 02/15/2017. There is no appreciable worsening of the obstruction. Again noted is gas within the nondistended colon and rectum. No pneumatosis intestinalis, pneumoperitoneum or other significant interval change. IMPRESSION: No evidence of worsening of the persistent small bowel obstruction. DICTATED BY: Parmjit Mclaughlin MD DATE/TIME DICTATED:02/18/17955 WINDOW TREATMENT INSTALLER:MALIKA DATE/TIME TRANSCRIBED:02/18/17955 Assessment/Plan Assessment/Plan: This 66 year old female with hx multiple abdominal surgeries, aortic stenosis, and vertigo, presents with recurrent abdominal pain likely related to ongoing small bowel obstruction currently npo / ivf pain control as ordered to go for exploratory laparoscopy, likely lysis of adhesions, today with will order heparin sc post-operatively for dvt ppx notified of the patient's anticipated surgery today, for hx aortic stenosis / clearance she will likely be placed in observation status, but may be admitted depending on operative findings will d/w As Ranked By This Provider Problem List: 1. SBO (small bowel obstruction) Copies To: Denys Marrero MD
--- NOTE | 2017-02-18 14:34 | Cons- Cardiology ---
General Information and HPI Consulting Request Date of Consult: 02/18/17 Requested By: Dr. Gerard Reason for Consult: Aortic stenosis Source of Information: patient, old records History of Present Illness: This is a pleasant 66-year-old female with a history of known asymptomatic moderate to severe aortic stenosis and prior abdominal surgeries including gastric bypass and hysterectomy who presented to [facility] with a chief complaint of recurrent abdominal pain of moderate intensity which she described as intermittent; was having small bowel movements with no obvious bleeding and no vomiting. Was here last week with similar symptoms and manage conservatively at that time but did develop recurrence. On my interview with her today she still has some abdominal discomfort but just had a bowel movement without any bleeding. Prior to her recent symptoms she had excellent exertional tolerance with no symptoms of chest pain or dyspnea. Denies any headache, slurring of speech, syncope, orthopnea, or increasing lower extremity edema. Allergies/Medications Allergies: Coded Allergies: lactose ("SNIFFLES" 02/18/17) Home Med List: Fluticasone Propionate 50 MCG/ACTUATION SPRAY.SUSP 1 SPRAY NASB PRN POST NASAL DRIP (Reported) Review of Systems Review of Systems: Review of systems as per HPI. The remainder of a 10 point review of systems was reviewed and was otherwise negative. 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 2008 Psychosocial History ETOH Use: heavy use, bottle of wine daily Illicit Drug Use: denies illicit drug use Functional Ability Ambulation: independent Exam & Diagnostic Data Vital Signs and I&O Vital Signs Date Time Temp Pulse Resp B/P B/P Pulse O2 O2 Flow FiO2 Mean Ox Delivery Rate 02/18 1139 99.1 83 20 117/76 95 Room Air 02/18 0911 97.5 82 15 136/82 94 Room Air Room Air Intake & Output 02/18 1600 02/18 0800 02/18 0000 02/17 1600 02/17 0800 02/17 0000 Intake Total Output Total Balance Patient 253 lb Weight Weight Reported by Patient Measurement Method Physical Exam: General: no apparent distress. Alert. Eyes: No obvious scleral icterus. HEENT: No jugular venous distention or abnormal jugular venous pulsations. Cardiovascular: Normal intensity S1/S2. 3/6 systolic ejection murmur Respiratory: No rales or rhonchi Abdomen: Distended with abdominal scars noted; bowel sounds noted Musculoskeletal: No clubbing or cyanosis noted Skin: Warm Neurologic: No gross focal deficits noted. Labs/Nicanor Results: Laboratory Tests 02/18 02/18 1208 0925 Chemistry Sodium (137 - 145 mmol/L) 139 Potassium (3.5 - 5.1 mmol/L) 3.8 Chloride (98 - 107 mmol/L) 105 Carbon Dioxide (22 - 30 mmol/L) 23 Anion Gap (5 - 16) 11 BUN (7 - 17 mg/dL) 13 Creatinine (0.5 - 1.0 mg/dL) 0.7 Estimated GFR (>60 ml/min) > 60 BUN/Creatinine Ratio (7 - 25 %) 18.6 Glucose (65 - 99 mg/dL) 114 H Lactic Acid (0.7 - 2.1 mmol/L) Cancelled 0.8 Calcium (8.4 - 10.2 mg/dL) 8.3 L Total Bilirubin (0.2 - 1.3 mg/dL) 1.9 H AST (14 - 36 U/L) 32 ALT (9 - 52 U/L) 45 Alkaline Phosphatase (<127 U/L) 54 Total Protein (6.3 - 8.2 g/dL) 5.8 L Albumin (3.5 - 5.0 g/dL) 3.3 L Globulin (1.9 - 4.2 gm/dL) 2.5 Albumin/Globulin Ratio (1.1 - 2.2 %) 1.3 Coagulation PT (9.4 - 12.5 SEC) 11.9 INR (0.90 - 1.19) 1.13 APTT (25 - 37 SEC) 30 Hematology CBC w Diff NO MAN DIFF REQ WBC (4.8 - 10.8 /CUMM) 4.9 RBC (4.20 - 5.40 /CUMM) 4.55 Hgb (12.0 - 16.0 G/DL) 14.8 Hct (37 - 47 %) 42.6 MCV (81.0 - 99.0 FL) 93.7 MCH (27.0 - 31.0 PG) 32.6 H RDW (11.5 - 14.5 %) 12.6 Plt Count (130 - 400 /CUMM) 187 MPV (7.4 - 10.4 FL) 8.1 Gran % (42.2 - 75.2 %) 66.1 Lymphocytes % (20.5 - 51.1 %) 17.0 L Monocytes % (1.7 - 9.3 %) 15.4 H Eosinophils % (0 - 5 %) 1.0 Basophils % (0.0 - 2.0 %) 0.5 Absolute Granulocytes (1.4 - 6.5 /CUMM) 3.2 Absolute Lymphocytes (1.2 - 3.4 /CUMM) 0.8 L Absolute Monocytes (0.10 - 0.60 /CUMM) 0.7 H Absolute Eosinophils (0.0 - 0.7 /CUMM) 0.1 Absolute Basophils (0.0 - 0.2 /CUMM) 0 PUBS MCHC (33.0 - 37.0 G/DL) 34.8 Diagnostic Data EKG Results Tracing was personally reviewed and shows sinus rhythm at 79 bpm with possible LVH CXR Results Right basilar subsegmental atelectasis. Otherwise, no acute pulmonary pathology. Other Results Echocardiogram from 2017 showed normal biventricular function with moderate to severe aortic stenosis Assessment/Plan Assessment/Plan 1. Recurrent abdominal pain with concern for small bowel obstruction 2. History of known asymptomatic moderate to severe aortic stenosis by Echo 2017 3. History of multiple prior abdominal surgeries The patient is currently euvolemic on exam with no evidence of decompensated congestive heart failure or acute coronary syndrome. She does have known moderate to severe aortic stenosis. She is being considered for possible exploratory laparoscopy with lysis of adhesions. Given her history of significant aortic stenosis she represents moderately elevated cardiac risk for surgery and the risks/benefits/alternatives of proceeding are deferred to the surgical team at this time. If the decision is made to proceed at the acknowledged risk her hemodynamics should be monitored carefully and she should be on telemetry for at least 24 hours following surgical intervention. Recommendations were discussed with anesthesia and surgery. Arnel Maciel MD [facility] Consult Acknowledgment - Thank you for your consult request.
--- NOTE | 2017-02-18 15:28 | PN- General Surgery ---
Surgical Brief Attending Note Brief Attending Note: Appreciate cardiology input. Patient has since passed to moderate size bowel movements with gas. Although her bowel obstruction appears to be recurrent, she is at moderate to high risk for operative intervention. For that reason she'll be given another trial of nonoperative treatment prior to performing lysis of adhesions. She'll be admitted the hospital for IV fluids and nothing by mouth and serial abdominal examinations. Repeat abdominal x-ray will be performed in the morning. Diet will be initiated when her radiographic findings normalize.
[2017-02-18 17:03] VITALS: BP 122/80
[2017-02-18 22:16] VITALS: BP 120/88
--- NOTE | 2017-02-18 23:10 | RADIOLOGY REPORT ---
EXAMINATION: XR ABDOMEN MULTIPLE VIEWS CLINICAL INDICATION: Partial small bowel obstruction. COMPARISON: CT abdomen and pelvis 02/13/2017. Abdomen 02/15/2017, 02/16/2017, 02/18/2017, 9:25 AM TECHNIQUE: 2 views of the abdomen. 10:40 PM FINDINGS: By history patient was given Gastrografin 6 hours prior to this exam. Faint contrast is seen in dilated small bowel loops. There is air-fluid levels. Bowel pattern consistent with an obstruction of the small bowel. There is some gas in nondistended large bowel loops. Scattered contrast in the left colon is been seen on prior studies from the CAT scan performed on 02/13/2017. The bowel distention is similar to prior studies. IMPRESSION: No substantial change since prior study today. Bowel pattern consistent with a small bowel obstruction. Gastrografin is seen faintly within the dilated small bowel loops.
[2017-02-19 07:00] VITALS: BP 122/84
[2017-02-19 08:09] LABS: ABSOLUTE BASOPHIL COUNT 0 /CUMM (0.0-0.2); ABSOLUTE EOSINOPHIL COUNT 0.1 /CUMM (0.0-0.7); ABSOLUTE GRANULOCYTE CT 2.1 /CUMM (1.4-6.5); ABSOLUTE MONOCYTE COUNT 0.5 /CUMM (0.10-0.60); BASOPHIL % 0.3 % (0.0-2.0); EOSINOPHIL % 2.9 % (0-5); GRANULOCYTE % 56.6 % (42.2-75.2); MEAN CORPUSCULAR HGB CONC 34.7 G/DL (33.0-37.0); MEAN PLATELET VOLUME 8.4 FL (7.4-10.4); PLATELET COUNT 135 /CUMM (130-400); RBC DISTRIBUTION WIDTH 12.6 % (11.5-14.5); RED BLOOD CELL CT 3.74 /CUMM (4.20-5.40); WHITE BLOOD CELL COUNT 3.7 /CUMM (4.8-10.8)
[2017-02-19 09:14] LABS: HEMATOCRIT 35.6 % (37-47)
--- NOTE | 2017-02-19 10:00 | RADIOLOGY REPORT ---
EXAMINATION: CR ABDOMEN MULTIPLE VIEWS CLINICAL INDICATION: Abdominal pain. Presumptive diagnosis of small bowel obstruction. COMPARISON: [facility]UB dated 02/18/2017, 02/16/2017, 02/15/2017. CT scan of the abdomen and pelvis dated 02/13/2017. TECHNIQUE: 2 views of the abdomen performed on 5 images. FINDINGS: Persistent but improved mild distention of small bowel loops in the midabdomen is seen with a few scattered air-fluid levels. Orally administered contrast is seen outlining portions of the colon down to the sigmoid colon with multiple air-fluid levels seen in the colon. Left-sided colonic diverticula are also noted. No free air is noted. There is elevation of the right hemidiaphragm and bibasilar linear subsegmental atelectasis is seen. S-shaped thoracolumbar scoliosis and multilevel mild degenerative changes in the thoracolumbar spine are seen. IMPRESSION: Findings are consistent with a partial or resolving small bowel obstruction. Continued close clinical correlation and follow-up is recommended.
--- NOTE | 2017-02-19 12:10 | PN- General Surgery ---
See Addendum Subjective Subjective: Patient has no major complaints. No further nausea. She started to have more bowel movements after administration of Gastrografin and continues to pass flatus today. Objective Vital Signs and I&Os Vital Signs Date Time Temp Pulse Resp B/P B/P Pulse O2 O2 Flow FiO2 Mean Ox Delivery Rate 02/19 1323 98.1 71 20 118/80 94 Room Air 02/19 0700 98.7 67 18 122/84 93 Room Air 02/18 2216 98.2 84 20 120/88 97 Room Air 02/18 1703 98.2 76 20 122/80 96 Room Air Intake & Output 02/19 1600 02/19 0800 02/19 0000 02/18 1600 02/18 0800 02/18 0000 Intake Total 1600 1000 560 Output Total 550 Balance 1050 1000 560 Intake, IV 1000 1000 500 Intake, Oral 600 60 Number 1 5 8 Bowel Movements Output, Urine 550 Patient 253 lb 253 lb Weight Weight Reported by Patient Measurement Method Physical Exam: Gen.: Patient is awake and alert. No acute distress. Cardiac: Regular Pulmonary: Clear Abdomen: Soft and mildly distended. Nontender. Normal bowel sounds were heard. Results Recent Imaging Studies: Abdominal x-ray from this morning revealed Findings consistent with a partial or resolving small bowel obstruction. Assessment/Plan Assessment/Plan Patient is a 66-year-old female with a history of gastric bypass and aortic stenosis who is now hospital day #2 with a recurrent partial small bowel obstruction. She was admitted earlier this week with the same issue. She has had return of bowel function and x-rays continue to show improvement. Plan: -Okay to advance to clears for now. We will advance diet slowly due to the recurrent obstruction and higher cardiac risk with surgery if she fails conservative management. Continue serial abdominal exams and monitor clinically. We will reassess for the need for repeat x-ray in the morning. -OK to Hep-Lock IV fluids. -Replete potassium and follow-up repeat labs in the morning. -Subcutaneous heparin for DVT prophylaxis and Protonix for GI prophylaxis. -Will d/w attending. Core Measures Venous Thromboembolism VTE Risk Factors Age>40 No Mechanical VTE Prophylaxis d/t N/A MechProphylax Ordered No VTE Pharm Prophylaxis d/t NA PharmProphylax ordered
[2017-02-19 13:23] VITALS: BP 118/80
--- NOTE | 2017-02-19 20:34 | Patient Discharge Instructions ---
Discharge Instructions General Discharge Information You were seen/treated for: recurrent small bowel obstruction You had these procedures: Surgery Date: 02/24/17 Name of Procedure: Laparoscopic converted to open lysis of adhesions Watch for these problems: fever>101.3, increased pain, nausea/vomiting, dizziness, shortness of breath, chest pains Call Surgeon to remove: Rere (remove rere post-op day#14) No bath, but you may shower: Yes Other wound care: ok to shower. no bathing/pools. keep incisions clean & dry. Special Instructions: rere to be removed at follow up appointment, around post-op day#14 Diet Continue normal diet: Yes Recommended Diet: Regular Activity Full Activity/No Limits: No Activity Self Limited: Yes Pounds, do NOT lift more than: 10 Other activity limits: walk freqently. no heavy lifting. no strenuous activity. Acute Coronary Syndrome Inclusion Criteria At DC or during hospital stay patient has or had the following: ACS DIAGNOSIS No Discharge Core Measures Meds if any: Prescribed or Continued at Discharge Meds if any: NOT Prescribed or Continued at Discharge Congestive Heart Failure Inclusion Criteria At DC or during hospital stay patient has or had the following: CHF DIAGNOSIS No Discharge Core Measures Meds if any: Prescribed or Continued at Discharge Meds if any: NOT Prescribed or Continued at Discharge Cerebrovascular accident Inclusion Criteria At DC or during hospital stay patient has or had the following: CVA/TIA Diagnosis No Discharge Core Measures Meds if any: Prescribed or Continued at Discharge Meds if any: NOT Prescribed or Continued at Discharge Venous thromboembolism Inclusion Criteria VTE Diagnosis No VTE Type NONE VTE Confirmed by (Test) NONE Discharge Core Measures - Per Current guidelines, there needs to be overlap - treatment for the first 5 days of Warfarin therapy. - If discharged on Warfarin prior to 5 days of - overlap therapy, the patient will need to be - assessed for post discharge needs including - *Post discharge parental anticoagulation - *Warfarin and/or parental anticoagulation education - *Follow up date to check INR post discharge At least 5 days overlap therapy as Inpatient No Meds if any: Prescribed or Continued at Discharge Note: Overlap Therapy is Warfarin and Anticoagulant Meds if any: NOT Prescribed or Continued at Discharge
[2017-02-19 23:11] VITALS: BP 159/97
[2017-02-20 06:55] VITALS: BP 143/77
--- NOTE | 2017-02-20 09:40 | PN- Student ---
See Addendum Miki Cabral 02/20/17 0920: Subjective Subjective: Chayo is a 66yo female admitted to the floor for recurrent RUQ pain. Patient was recently discharged from [facility] 02/16/2017 after presumed resolution of SBO. Patient states since her d/c she has been strictly adhering to the recommended diet but denies any BM and states this diffuse crescendo/decrescendo twisting abdominal pain has returned. Chayo has many complaints today- she states she is 'very upset' about a conversation she had with a medical staff member (name unknown) last night- as she was told she would be discharged today despite her 'minimal improvement.' Chayo believes that she should stay as an inpatient until Tuesday02/22/17 as she progresses through her dietary changes. She is also complaining that there is a food dye restriction in her diet as she 'prefers grape juice and tomato soup.' Chayo is also very frustrated that her medical chart has her alcohol intake documented. She states she drinks 1-2 glasses of wine per night with food which is different than the 1 bottle of wine/day as documented in her medical records. She is also frustrated that she has been labeled as an 'opioid abuser' in her medical chart. This chart writer has not seen this in any medical documents and Chayo states she has only used percocet as prescribed after her previous surgeries. Chayo is very tangential in her speech and takes much redirection. She states her abdominal pain has decreased significantly since being on a limited PO diet (clear liquids). She has mild abdominal pain in the RUQ- worse with deep palpation. Denies SOB, chest pain, N/V/D, paresthesias or syncope. No other complaints at this time. Objective Objective: GENERAL: Patient is sitting upright on the edge of the bed, in no acute distress. She is slightly agitated and talks at an accelerated speed with tangential thinking. RESP: Good respiratory effort, CTAB. CARDIO: RRR, loud holosystolic murmur in S1- hx of aortic stenosis x 1 year. no gallops or rubs appreciated at this time. Pulses 2+ throughout/symmetrical ABD: 2 large scars noted on abdomen from previous surgeries. Large body habitus. Abd is soft, tender to deep palpation in RUQ, soft normoactive bowel sounds auscultated in all 4 quadrants. tympanic upon percussion throughout. No organomegaly. Firm bowel palpated in LUQ- non painful. EXTREM: 5/5 strength, full ROM, no edema noted. Large bruising to left upper arm - unsure of origin. NEURO: sensation intact throughout. Assessment/Plan Assessment: Chayo is a 66yo Caucasain female with hx of signficant abdominal surgeries being observed for her recurrent symptomatic SBO. She is slightly agitated today following a discussion with medical personel last night. There is no note documenting the discussion. She is adament about staying inpatient as she progresses through her dietary intake. She seems to be improving with bowel rest as her pain has significantly decreased although she denies any solid bowel movement. Chayo states she has passed multiple . Lucía Hennessy 02/20/17 6335: Assessment/Plan Plan: Pt seen and examined - Agree with above SAHARA student note Pt is not interested in advancing her diet beyond full liquids today and she would like to slowly advance over the next two days - she is afraid of a set back as before. She is passing gas without difficulty but denies having a bowel movement. Fulls today were tolerated well without pain or nausea On exam abdomen is soft with good bowel sounds Discussed with Dr Enriquez Diet will be advanced in am to regular with further evaluation at that time
[2017-02-20 09:48] LABS: ABSOLUTE BASOPHIL COUNT 0 /CUMM (0.0-0.2); ABSOLUTE EOSINOPHIL COUNT 0.1 /CUMM (0.0-0.7); ABSOLUTE GRANULOCYTE CT 1.9 /CUMM (1.4-6.5); ABSOLUTE MONOCYTE COUNT 0.4 /CUMM (0.10-0.60); BASOPHIL % 0.6 % (0.0-2.0); EOSINOPHIL % 2.5 % (0-5); GRANULOCYTE % 55.7 % (42.2-75.2); HEMATOCRIT 34.8 % (37-47); MEAN CORPUSCULAR HGB 32.5 PG (27.0-31.0); MEAN CORPUSCULAR HGB CONC 34.2 G/DL (33.0-37.0); MEAN CORPUSCULAR VOLUME 95.1 FL (81.0-99.0); MEAN PLATELET VOLUME 8.3 FL (7.4-10.4); PLATELET COUNT 145 /CUMM (130-400); RBC DISTRIBUTION WIDTH 12.5 % (11.5-14.5); RED BLOOD CELL CT 3.66 /CUMM (4.20-5.40); WHITE BLOOD CELL COUNT 3.5 /CUMM (4.8-10.8)
[2017-02-20 14:40] VITALS: BP 128/82
[2017-02-20 22:15] VITALS: BP 131/76
[2017-02-21 07:30] VITALS: BP 122/78
--- NOTE | 2017-02-21 09:05 | PN- General Surgery ---
See Addendum Subjective Subjective: pt sitting up in bed. PLanning to have a regular diet today. Still feels bloated. Passing flatus, Last BM 02/18. Denies nausea. Has intermittent abdominla pain, not taking any pain medication for it. Ambulating, voiding. Denies fevers. Denies CP/SOB Objective Vital Signs and I&Os Vital Signs Date Time Temp Pulse Resp B/P B/P Pulse O2 O2 Flow FiO2 Mean Ox Delivery Rate 02/22 820 98.1 02/21 729 998.1 68 20 122/78 95 Room Air 02/20 2215 98.2 72 20 131/76 95 Room Air 02/20 1440 98.1 72 18 128/82 98 Intake & Output 02/21 1600 02/21 0000 02/20 1600 02/20 0000 Intake Total 240 600 576 576 8270 Output Total 600 700 700 Balance 240 0 -50 -330 1020 Intake, IV 130 420 Intake, Oral 240 600 650 240 600 Output, Urine 600 700 700 Patient 253 lb Weight Gen- NAD resp- CTAB cadiac- RRR abd- obese, mildly distended, +BS, tympanic, nontender Assessment/Plan Assessment/Plan 66yo F with resolving PSBO Regular diet today, encouraged low residue Encourage ambulation Pt refusing SQ Heparin After being readmitted to the hospital last week with 48h of dischargfe, pt is apprehensive about going home to soon and would like to ensure that she will tolerate her diet today and if all is well will go home tomorrow morning. Core Measures Venous Thromboembolism VTE Risk Factors Age>40 No Mechanical VTE Prophylaxis d/t N/A MechProphylax Ordered No VTE Pharm Prophylaxis d/t NA PharmProphylax ordered
[2017-02-21 14:30] VITALS: BP 140/88
[2017-02-21 23:00] VITALS: BP 142/68
[2017-02-22 06:20] VITALS: BP 124/74
--- NOTE | 2017-02-22 07:59 | PN- General Surgery ---
See Addendum Subjective Subjective: Tolerated breakfast and lunch yesterday, had no appetite during dinner and felt bloated and mildly diaphoretic. No nausea no vomiting. Positive flatus, small bowel movement noted yesterday. Overall feeling better and believes she is improving Objective Vital Signs and I&Os Vital Signs Date Time Temp Pulse Resp B/P B/P Pulse O2 O2 Flow FiO2 Mean Ox Delivery Rate 02/22 619 98.7 78 20 124/74 92 02/21 2300 99.8 85 18 142/68 99 Room Air 02/21 1430 98.3 73 18 140/88 94 02/21 0821 98.1 Intake & Output 02/22 0000 02/21 1600 02/21 0000 02/20 1600 Intake Total 250 1000 1000 240 600 650 Output Total 350 500 825 600 700 Balance -100 500 175 240 0 -50 Intake, Oral 250 1000 1000 240 600 650 Number 1 0 Bowel Movements Output, Urine 350 500 825 600 700 Patient 253 lb Weight Physical Exam: Well-developed well-nourished no apparent distress. HEENT: Atraumatic, extraocular motion intact Neck: Supple, no lymphadenopathy Respiratory: No respiratory distress Abdomen: Mild to moderate distention, nontender, positive bowel sounds Extremities: No edema, no calf pain Neuro: Alert and oriented x3 Psych: Mood affect normal, normal memory normal judgment. Skin: Warm and dry, no rash on exposed skin Assessment/Plan Assessment/Plan 66yo F with resolving PSBO Regular diet today, encouraged low residue Encourage ambulation Discussed with patient that she probably overdid it yesterday during breakfast and lunch and she needs to eat smaller meals and drink more liquids. Likely discharge home later today. Core Measures Venous Thromboembolism VTE Risk Factors Age>40 No Mechanical VTE Prophylaxis d/t N/A MechProphylax Ordered No VTE Pharm Prophylaxis d/t NA PharmProphylax ordered
--- NOTE | 2017-02-22 10:08 | RADIOLOGY REPORT ---
EXAMINATION: XR ABDOMEN MULTIPLE VIEWS CLINICAL INDICATION: Follow-up small bowel obstruction. COMPARISON: 02/19/2017 TECHNIQUE: 2 views of the abdomen. FINDINGS: There is residual contrast material within the nondilated descending and sigmoid colon. Multiple colonic diverticula are seen. There is persistent small bowel dilatation with scattered air-fluid levels. The degree of small bowel dilatation has not significantly changed compared to 02/19/2017. No pneumoperitoneum. IMPRESSION: Persistent small bowel obstruction -- similar in appearance compared to 02/19/2017.
[2017-02-22 14:13] VITALS: BP 118/64
--- NOTE | 2017-02-22 18:27 | PN- General Surgery ---
Surgical Brief Attending Note Brief Attending Note: XRAY SHOWS RECURRENT SBO. LIKELY PARTIAL BUT RECURRENT. PLAN OPERATIVE INTERVENTION TOMORRROW.
[2017-02-22 22:11] VITALS: BP 102/62
[2017-02-23 06:42] VITALS: BP 120/64
--- NOTE | 2017-02-23 11:55 | PN- Cardiology ---
Subjective Subjective: Stable with no chest pain or dyspnea. She is being planned for surgery given evidence of persistent small bowel obstruction by x-ray. Objective Vital Signs and I&Os Vital Signs Date Time Temp Pulse Resp B/P B/P Pulse O2 O2 Flow FiO2 Mean Ox Delivery Rate 02/23 0642 98.5 65 20 120/64 94 Room Air 02/22 2211 98.7 70 18 102/62 96 Room Air 02/22 1413 99.1 74 20 118/64 98 Room Air Intake & Output 02/23 1600 02/23 0802/23 0000 02/22 1600 02/22 0802/22 0000 Intake Total 0422 828 7776 250 1000 Output Total 600 450 550 350 500 Balance -600 1615 400 450 -100 500 Intake, IV 1375 10 Intake, Oral 257 766 3739 250 1000 Number 0 0 1 Bowel Movements Output, Urine 600 450 550 350 500 Physical Exam: General: no apparent distress. Alert. Eyes: No obvious scleral icterus. HEENT: No jugular venous distention or abnormal jugular venous pulsations. Cardiovascular: Normal intensity S1/S2. 3/6 systolic ejection murmur Respiratory: No rales or rhonchi Abdomen: Distended with abdominal scars noted; bowel sounds noted Musculoskeletal: No clubbing or cyanosis noted Skin: Warm Neurologic: No gross focal deficits noted. Current Medications: Current Medications Sig/Nancy Start time Last Medication Dose Route Stop Time Status Admin Acetaminophen 650 MG .STK-MED ONE 02/22 2034 DC PO 02/22 2035 Acetaminophen 650 MG Q6P PRN 02/21 2230 AC 02/22 PO 203 Artificial Tears 2 GTT 4 TIMES/DAY PRN 02/19 2330 AC 02/20 OPH 1910 Dextrose/Lactated 1,000 ML Q10H 02/23 1000 AC 02/23 Ringer's IV 1029 Fluticasone 2 SPRAY DAILY PRN 02/18 1515 AC 02/22 Propionate BOSSMAN 203 Heparin Sodium 5,000 UNIT Q8 02/18 2199 AC (Porcine) SC Melatonin 3 MG AT BEDTIME 02/18 2199 AC 02/22 PO 203 Omeprazole 20 MG DAILY AC 02/22 0700 AC 02/22 PO 0557 Patient Medication 1 ED ONE ONE 02/23 1130 DC Teaching ED 02/23 1131 Sodium Chloride 1,000 ML ONCE ONE 02/23 0000 DC 02/22 IV 02/23 0759 2355 Results Last 48 Hrs of Labs/Mics: no new labs Recent Imaging Studies: XRay: Persistent small bowel obstruction -- similar in appearance compared to 02/19/2017. Assessment/Plan Assessment/Plan 1. Recurrent abdominal pain with concern for small bowel obstruction 2. History of known asymptomatic moderate to severe aortic stenosis by Echo 2016 3. History of multiple prior abdominal surgeries The patient is planned for surgical intervention due to evidence of recurrent small bowel obstruction. She remains at moderately elevated cardiac risk given her known moderate to severe aortic stenosis. As previously recommended she should be on telemetry for at least 24 hours following surgical intervention. Would also recommend obtaining a repeat echocardiogram but this study does not need to delay surgery. Arnel Maciel MD [facility] Continue telemetry? Not applicable
[2017-02-23 14:17] VITALS: BP 124/70
--- NOTE | 2017-02-23 17:08 | PN- General Surgery ---
Surgical Brief Attending Note Brief Attending Note: Patient is stable. I have a family emergency therefore her operation will be postponed until tomorrow. Patient is aware and comfortable. She is asking for a diet. Gupta liquids tonight and nothing by mouth after midnight pending surgery tomorrow
[2017-02-23 22:15] VITALS: BP 118/73
[2017-02-24 06:44] VITALS: BP 118/72
--- NOTE | 2017-02-24 09:14 | PN- Cardiology ---
Subjective Subjective: Patient plan for surgery today. Sitting at the edge of the bed had a bowel movement today feels okay Objective Vital Signs and I&Os Vital Signs Date Time Temp Pulse Resp B/P B/P Pulse O2 O2 Flow FiO2 Mean Ox Delivery Rate 02/24 0644 98.1 66 20 118/72 96 Room Air 02/23 2215 98.4 74 20 118/73 94 Room Air 02/23 1417 98.2 67 20 124/70 97 Room Air Intake & Output 02/24 1600 02/24 0800 02/24 0000 02/23 1600 02/23 0800 02/23 0000 Intake Total 800 180 761 6757 850 Output Total 700 450 Balance 800 022 115 8629 400 Intake, IV 800 434 592 0165 10 Intake, Oral 240 840 Number 5 0 0 Bowel Movements Output, Urine 700 450 Physical Exam: Gen. exam patient comfortable Head normal cephalic atraumatic Eyes sclera anicteric conjunctiva showed no pallor extraocular muscles were normal Neck no carotid bruits no jugular venous distention no thyroid masses no palpable nodes Chest lungs were clear bilaterally except heart regular rhythm with a grade 2/6 ejection systolic murmur Abdomen soft with a mass in the right lower quadrant Extremities no clubbing cyanosis or edema Neurological no gross motor or sensory deficits Current Medications: Current Medications Sig/Nancy Start time Last Medication Dose Route Stop Time Status Admin Acetaminophen 160 MG ONCE ONE 02/23 2114 DC 02/23 PO 02/23 Acetaminophen 650 MG .STK-MED ONE 02/23 2043 DC PO 02/23 204 Acetaminophen 650 MG Q6P PRN 02/21 2230 AC 02/22 PO 203 Artificial Tears 2 GTT 4 TIMES/DAY PRN 02/19 2330 AC 02/20 OPH 1910 Dextrose/Lactated 1,000 ML Q10H 02/23 1000 AC 02/24 Ringer's IV 0727 Fluticasone 2 SPRAY DAILY PRN 02/18 1515 AC 02/23 Propionate BOSSMAN 2046 Heparin Sodium 5,000 UNIT Q8 02/18 2200 AC (Porcine) SC Melatonin 3 MG AT BEDTIME 02/18 2200 AC 02/23 PO 2045 Omeprazole 20 MG DAILY AC 02/22 0700 AC 02/22 PO 0557 Patient Medication 1 ED ONE ONE 02/23 1130 DC Teaching ED 02/23 1131 Assessment/Plan Assessment/Plan In summary this 66-year-old female has the following problems 1. Recurrent abdominal pain with concern for small bowel obstruction 2. History of known asymptomatic moderate to severe aortic stenosis by Echo 2016 3. History of multiple prior abdominal surgeries She will undergo surgery today with moderate to high risk. However patient is clinically stable with a stable echocardiogram to proceed. Postoperatively she should be monitored on an telemetry floor for at least 24 hours. If possible in -hospital echocardiogram can be obtained after surgery. Continue telemetry? Not applicable
[2017-02-24 12:03] VITALS: BP 140/81
--- NOTE | 2017-02-24 17:32 | Operative Report ---
Operative/Inv Procedure Report Surgery Date: 02/24/17 Name of Procedure: Laparoscopic converted to open lysis of adhesions Pre-Operative Diagnosis: Intestinal obstruction Post-Operative Diagnosis: Same Estimated Blood Loss: 50ml to 100ml Surgeon/Mesh Man: Moustapha STEPHEN,Marcos Britton/Justin SHOEMAKER Anesthesia: general endotracheal tube Operative Indication: Patient 66-year-old woman with recurrent partial small bowel obstruction and has failed medical management 2. Operative/Procedure Note Note: After consent she is brought to the operating room laid supine. Gen. anesthesia was obtained and her abdomen was prepped and draped. The skin in the midline was incised sharply and the subcutaneous tissues dissected bluntly. We sized the fascia sharply and placed stay sutures. A blunt Ronquillo port placed no peritoneum was achieved. The abdomen was explored. There were numerous adhesions throughout the abdominal cavity and there was no available window to place anymore ports. I therefore converted to an open operation. Made an incision through the midline sharply came down to the fascia with cautery. There were multiple loops of small bowel adherent to hernia mesh in the midline. Tease them off sharply with Metzenbaum scissors. This dissection was quite tedious given the extensive nature of these adhesions as well as exposed polypropylene mesh had caused very dense adhesions to it. In the right lower quadrant there was an area that I could feel that appeared to be a closed loop obstruction due to an adhesive band. We continued lysis of adhesions until we could finally identify the area and divide these adhesions under direct vision. There was indeed fibrinous and around to loops of bowel. The scar tissue around it was divided with sharp dissection and we could milk succus entericus through both of these segments. We then ran the small bowel from the terminal ileum to the Treitz. There was an inadvertent tear in the mesentery at the terminal ileum which was controlled with suture ligation. The bowel was viable so no resection was undertaken. Once all the adhesions were lysed we ran the bowel once more. There was no enterotomies. There was a transition point of dilated loops proximal to where the thick band was divided. However enteric contents had begun to move through this area. We then replaced the bowel back in the abdominal cavity and irrigated with normal saline. Seprafilm was placed anteriorly and the fascia was then closed with a running 0 Maxon suture. Wound was irrigated with saline and skin closed with rere. Sterile dressings were applied. Sponge and needle counts are correct. 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
[2017-02-24 18:21] VITALS: BP 110/80
--- NOTE | 2017-02-24 20:25 | PN- General Surgery ---
Subjective Subjective: POSTOP CHECK feeling ok, some incisional pain, no flatus, no bm. asking when she can eat. no oob yet. +uo via campos. no cp/sob/palps no n/v Objective Vital Signs and I&Os Vital Signs Date Time Temp Pulse Resp B/P B/P Pulse O2 O2 Flow FiO2 Mean Ox Delivery Rate 02/24 1821 97.6 75 20 110/80 96 02/24 1800 Nasal 2.0L Cannula 02/24 1203 98.5 64 20 140/81 96 Room Air 02/24 0644 98.1 66 20 118/72 96 Room Air 02/23 2215 98.4 74 20 118/73 94 Room Air Intake & Output 02/24 1600 02/24 0800 02/24 0000 02/23 1600 02/23 0800 02/23 0000 Intake Total 525 800 878 343 4240 850 Output Total 800 700 450 Balance -275 800 959 331 0262 400 Intake, IV 525 800 290 609 3370 10 Intake, Oral 0 240 840 Number 2 5 0 0 Bowel Movements Output, Urine 800 700 450 Physical Exam: gen- nad card- s1s2 rrr pulm- no audible wheeze abd- obese, softly dist, incision w cdi dressing, ttp at incision and right abd ext- calves soft nt, alps on Assessment/Plan Assessment/Plan A- POD0 sp ex lap/FRANCISCO JAVIER for SBO, stable, awaiting bowel fxn. P- campos dc in am cont IVF NPO, sips/ice chips ok IV meds, prn pain meds am labs tele per cardiology due to hx , postop monitoring await bowel fxn alps, hep sq oob, ambulate ist, titrate o2 Core Measures Venous Thromboembolism VTE Risk Factors Age>40 No Mechanical VTE Prophylaxis d/t N/A MechProphylax Ordered No VTE Pharm Prophylaxis d/t NA PharmProphylax ordered
[2017-02-24 23:51] VITALS: BP 110/80
[2017-02-25 05:54] VITALS: BP 110/70
[2017-02-25 08:19] LABS: ABSOLUTE BASOPHIL COUNT 0 /CUMM (0.0-0.2); ABSOLUTE EOSINOPHIL COUNT 0 /CUMM (0.0-0.7); ABSOLUTE MONOCYTE COUNT 0.8 /CUMM (0.10-0.60); BASOPHIL % 0.4 % (0.0-2.0); PLATELET COUNT 165 /CUMM (130-400); RED BLOOD CELL CT 4.07 /CUMM (4.20-5.40)
[2017-02-25 08:46] LABS: ABSOLUTE GRANULOCYTE CT 4.9 /CUMM (1.4-6.5); EOSINOPHIL % 0.5 % (0-5); GRANULOCYTE % 72.4 % (42.2-75.2); HEMATOCRIT 39.2 % (37-47); MEAN CORPUSCULAR HGB 32.3 PG (27.0-31.0); MEAN CORPUSCULAR HGB CONC 33.5 G/DL (33.0-37.0); MEAN CORPUSCULAR VOLUME 96.4 FL (81.0-99.0); MEAN PLATELET VOLUME 9.4 FL (7.4-10.4); RBC DISTRIBUTION WIDTH 12.8 % (11.5-14.5)
[2017-02-25 09:13] LABS: WHITE BLOOD CELL COUNT 6.7 /CUMM (4.8-10.8)
--- NOTE | 2017-02-25 09:22 | PN- General Surgery ---
Surgical Brief Attending Note Brief Attending Note: STABLE OVERNIGHT. LOOKS COMFORTABLE. UOP NOT RECORDED. FRUSTRATING. MAY NEED FLUID BOLUS GIVEN AMOUNT OF OOZING INTRAOPERATIVELY AND DISSECTION. ANTICIPATE THIRD SPACE FLUID SHIFTS. NPO X ICE UNTIL BOWEL FUNCTION.
--- NOTE | 2017-02-25 10:15 | ECHOCARDIOGRAM REPORT ---
[place], [place] Age: 66 : 1950 Gender: F Exam Date: 02/24/2017 10:50 Exam Location: [address] [place] [address] Ht (in): 70 Wt (lb): 253 BSA: 2.42 BP: 118 / 72 Ordering Physician: Marcos Gerard MD Referring Physician: Marcos Gerard MD Technologist: Horacio Heart [facility] Room Number: 213-1 Indications: VALVULAR DISEASE Rhythm: Technical Quality: Technically difficult study FINDINGS Left Ventricle Left ventricular cavity size normal. Left ventricular wall thickness mildly increased. No obvious regional wall motion abnormalities. Left ventricular ejection fraction is estimated at 55 %. Abnormal relaxation filling pattern of the left ventricle for age (stage 1 diastolic dysfunction). Right Ventricle Normal right ventricular size and function. Right Atrium Normal right atrial size. Left Atrium Normal left atrial size. Mitral Valve Moderate mitral annular calcification. No mitral stenosis. Trace mitral regurgitation. Aortic Valve Diffuse thickening of the aortic valve cusps with reduced excursion. Severe aortic stenosis (mean gradient 44 mmHg). Tricuspid Valve Structurally normal tricuspid valve. Trace to mild tricuspid regurgitation. Unable to estimate the right ventricular systolic pressure. Pulmonic Valve Pulmonic valve not well visualized. Pericardium No pericardial effusion. Great Vessels Normal size aortic root. CONCLUSIONS Technically difficult study. Left ventricular cavity size normal. Left ventricular wall thickness mildly increased. No obvious regional wall motion abnormalities. Left ventricular ejection fraction is estimated at 55 %. Abnormal relaxation filling pattern of the left ventricle for age (stage 1 diastolic dysfunction). Normal right ventricular size and function. Severe aortic stenosis (mean gradient 44 mmHg). Unable to estimate the right ventricular systolic pressure. Riccardo Maciel M.D. (Electronically Signed) Final Date: 25 February 2017 10:14 MEASUREMENTS (Male / Female) Normal Values 2D ECHO LV Diastolic Diameter PLAX 5.7 cm 4.2 - 5.9 / 3.9 - 5.3 cm LV Systolic Diameter PLAX 3.9 cm 2.1 - 4.0 cm LV Fractional Shortening PLAX 31.6 % 25 - 46 % LV Ejection Fraction 2D Teich 58.8 % IVS Diastolic Thickness 1.2 cm LVPW Diastolic Thickness 1.1 cm LV Relative Wall Thickness 0.4 RV Internal Dim ED PLAX 3.1 cm 1.9 - 3.8 cm LVOT Diameter 2.0 cm Aortic Root Diameter 2.7 cm LA Systolic Diameter LX 3.2 cm 3.0 - 4.0 / 2.7 - 3.8 cm Ascending Aorta Diameter 3.3 cm DOPPLER AV Peak Velocity 415.0 cm/s AV Peak Gradient 68.9 mmHg AV Mean Velocity 308.0 cm/s AV Mean Gradient 44.0 mmHg AV Velocity Time Integral 106.0 cm LVOT Peak Velocity 56.4 cm/s LVOT Peak Gradient 1.3 mmHg LVOT Mean Velocity 39.0 cm/s LVOT Mean Gradient 1.0 mmHg LVOT Velocity Time Integral 18.1 cm LVOT Stroke Volume 56.9 cm AV Area Cont Eq vti 0.5 cm AV Area Cont Eq pk 0.4 cm MV Peak Velocity 127.0 cm/s MV Peak Gradient 6.5 mmHg MV Mean Velocity 69.9 cm/s MV Mean Gradient 2.0 mmHg Mitral E Point Velocity 89.3 cm/s Mitral A Point Velocity 127.0 cm/s Mitral E to A Ratio 0.7 MV PHT Velocity 96.4 cm/s MV Deceleration [place] 201.0 cm/s MV Pressure Half Time 143.9 ms MV Area PHT 1.5 cm MV Deceleration Time 370.0 ms TR Peak Velocity 232.0 cm/s TR Peak Gradient 21.5 mmHg Right Atrial Pressure 5.0 mmHg Pulmonary Artery Systolic Pressu 26.5 mmHg Right Ventricular Systolic Press 26.5 mmHg PV Peak Velocity 81.3 cm/s PV Peak Gradient 2.6 mmHg PV Mean Velocity 56.9 cm/s PV Mean Gradient 1.0 mmHg PV Velocity Time Integral 20.1 cm LV E' Lateral Velocity 10.2 cm/s Mitral E to LV E' Lateral Ratio 8.7 LV E' Septal Velocity 4.3 cm/s Mitral E to LV E' Septal Ratio 20.8
--- NOTE | 2017-02-25 11:15 | PN- Cardiology ---
Subjective Subjective: Doing well status post surgery. No chest pain, dyspnea, or palpitations. Objective Vital Signs and I&Os Vital Signs Date Time Temp Pulse Resp B/P B/P Pulse O2 O2 Flow FiO2 Mean Ox Delivery Rate 02/25 0554 98.6 67 20 110/70 95 02/25 0000 Nasal 2.0L Cannula 02/24 2351 98.3 80 20 110/80 96 02/24 1821 97.6 75 20 110/80 96 02/24 1800 Nasal 2.0L Cannula 02/24 1203 98.5 64 20 140/81 96 Room Air Intake & Output 02/25 1600 02/25 0800 02/25 0000 02/24 1600 02/24 0800 02/24 0000 Intake Total 800 60 525 800 300 Output Total 800 Balance 800 60 -275 800 300 Intake, IV 800 525 800 300 Intake, Oral 0 60 0 Number 2 Bowel Movements Output, Urine 800 Physical Exam: General: no apparent distress. Alert. Eyes: No obvious scleral icterus. HEENT: No jugular venous distention or abnormal jugular venous pulsations. Cardiovascular: Normal intensity S1/S2. 3/6 systolic ejection murmur Respiratory: No rales or rhonchi Abdomen: Distended with abdominal scars noted Musculoskeletal: No clubbing or cyanosis noted; no edema Skin: Warm Neurologic: No gross focal deficits noted. Current Medications: Current Medications Sig/Nancy Start time Last Medication Dose Route Stop Time Status Admin Acetaminophen 1,000 MG .STK-MED ONE 02/24 1349 DC IV 02/24 1350 Acetaminophen 650 MG Q6P PRN 02/21 2230 AC 02/22 PO 2035 Artificial Tears 2 GTT 4 TIMES/DAY PRN 02/19 2330 02/20 OPH 1910 Dexamethasone 4 MG .STK-MED ONE 02/24 1349 DC IM 02/24 1350 Dextrose/Lactated 1,000 ML Q10H 02/23 1000 AC 02/25 Ringer's IV 0426 Fentanyl Citrate 250 MCG .STK-MED ONE 02/24 1348 DC IM 02/24 1349 Fluticasone 2 SPRAY DAILY PRN 02/18 1515 02/24 Propionate BOSSMAN 2044 Heparin Sodium 5,000 UNIT Q8 02/18 2200 AC (Porcine) SC Hydromorphone HCl 2 MG .STK-MED ONE 02/24 1348 DC IM 02/24 1349 Melatonin 3 MG AT BEDTIME 02/180 02/24 PO 2044 Midazolam HCl 2 MG .STK-MED ONE 02/24 1349 DC IM 02/24 1350 Morphine Sulfate 4 MG Q4P PRN 02/24 1730 02/25 IV 0909 Morphine Sulfate 6 MG Q4 HRS NEEDED PRN 02/24 1730 AC IV Omeprazole 20 MG DAILY AC 02/22 0700 AC 02/22 PO 0557 Ondansetron HCl 8 MG .STK-MED ONE 02/24 1349 DC IM 02/24 1350 Phenol 2 SPRAY Q2P PRN 02/25 0030 AC 02/25 EXT 0426 Remifentanil HCl 6 MG .STK-MED ONE 02/24 1349 DC IV 02/24 1350 Results Last 48 Hrs of Labs/Mics: Laboratory Tests 02/25/17 0610: Anion Gap 12, Estimated GFR > 60, BUN/Creatinine Ratio 11.7, Magnesium 1.6, CBC w Diff NO MAN DIFF REQ, RBC 4.07 L, MCV 96.4, MCH 32.3 H, RDW 12.8, MPV 9.4, Gran % 72.4, Lymphocytes % 15.2 L, Monocytes % 11.5 H, Eosinophils % 0.5, Basophils % 0.4, Absolute Granulocytes 4.9, Absolute Lymphocytes 1.0 L, Absolute Monocytes 0.8 H, Absolute Eosinophils 0, Absolute Basophils 0, PUBS MCHC 33.5 Recent Imaging Studies: Telemetry tracings were personally reviewed and shows sinus rhythm Echocardiogram Technically difficult study. Left ventricular cavity size normal. Left ventricular wall thickness mildly increased. No obvious regional wall motion abnormalities. Left ventricular ejection fraction is estimated at 55 %. Abnormal relaxation filling pattern of the left ventricle for age (stage 1 diastolic dysfunction). Normal right ventricular size and function. Severe aortic stenosis (mean gradient 44 mmHg). Unable to estimate the right ventricular systolic pressure. Riccardo Maciel M.D. (Electronically Signed) Final Date: 25 February 2017 10:14 Assessment/Plan Assessment/Plan 1. Recurrent abdominal pain with concern for small bowel obstruction 2. History of known asymptomatic moderate to severe aortic stenosis by Echo 2017; now severe by current echocardiogram 3. History of multiple prior abdominal surgeries 4. Status post open lysis of adhesions Patient remains stable status post open lysis of adhesions. Remains in sinus rhythm on telemetry. Echocardiogram shows that her aortic stenosis is now severe but LV function remains within normal limits. I recommend decreasing the infusion rate of her IV fluids given her risk of iatrogenic volume overload with severe aortic stenosis. Arnel Maciel MD [facility] Continue telemetry? Yes
[2017-02-25 14:32] VITALS: BP 108/60
[2017-02-25 23:36] VITALS: BP 98/60
[2017-02-26 06:34] VITALS: BP 100/70
--- NOTE | 2017-02-26 10:16 | PN- General Surgery ---
See Addendum Subjective Subjective: Patient feeling well this morning. Has been walking, positive flatus, urine output has picked up, tolerating ice chips, she is thirsty and requesting something to eat Objective Vital Signs and I&Os Vital Signs Date Time Temp Pulse Resp B/P B/P Pulse O2 O2 Flow FiO2 Mean Ox Delivery Rate 02/26 0634 99.7 91 20 100/70 91 Room Air 02/25 2336 98.5 104 20 98/60 91 02/25 1432 99.7 96 20 108/60 91 Room Air Intake & Output 02/26 1600 02/26 0800 02/26 0000 02/25 1600 02/25 0800 02/25 0000 Intake Total 900 700 700 800 60 Output Total 300 300 325 Balance 600 400 375 800 60 Intake, IV 900 700 600 800 Intake, Oral 100 0 60 Output, Urine 300 300 325 Physical Exam: Well-developed well-nourished no apparent distress. HEENT: Atraumatic, extraocular motion intact Neck: Supple, no lymphadenopathy Respiratory: No respiratory distress Abdomen: Mild distention, hypoactive bowel sounds, dressing clean dry and intact with minimal dry bloody staining. Mild tenderness throughout. Extremities: No edema, no calf pain Neuro: Alert and oriented x3 Psych: Mood affect normal, normal memory normal judgment. Skin: Warm and dry, no rash on exposed skin Results Last 48 Hours of Labs: Laboratory Tests 02/26 02/25 0615 0610 Chemistry Sodium (137 - 145 mmol/L) 138 141 Potassium (3.5 - 5.1 mmol/L) 3.5 3.9 Chloride (98 - 107 mmol/L) 102 108 H Carbon Dioxide (22 - 30 mmol/L) 23 22 Anion Gap (5 - 16) 12 12 BUN (7 - 17 mg/dL) 14 7 Creatinine (0.5 - 1.0 mg/dL) 0.9 0.6 Estimated GFR (>60 ml/min) > 60 > 60 BUN/Creatinine Ratio (7 - 25 %) 15.6 11.7 Magnesium (1.6 - 2.3 mg/dL) 1.8 1.6 Hematology CBC w Diff NO MAN DIFF REQ WBC (4.8 - 10.8 /CUMM) 6.7 RBC (4.20 - 5.40 /CUMM) 4.07 L Hgb (12.0 - 16.0 G/DL) 13.2 Hct (37 - 47 %) 39.2 MCV (81.0 - 99.0 FL) 96.4 MCH (27.0 - 31.0 PG) 32.3 H RDW (11.5 - 14.5 %) 12.8 Plt Count (130 - 400 /CUMM) 165 MPV (7.4 - 10.4 FL) 9.4 Gran % (42.2 - 75.2 %) 72.4 Lymphocytes % (20.5 - 51.1 %) 15.2 L Monocytes % (1.7 - 9.3 %) 11.5 H Eosinophils % (0 - 5 %) 0.5 Basophils % (0.0 - 2.0 %) 0.4 Absolute Granulocytes (1.4 - 6.5 /CUMM) 4.9 Absolute Lymphocytes (1.2 - 3.4 /CUMM) 1.0 L Absolute Monocytes (0.10 - 0.60 /CUMM) 0.8 H Absolute Eosinophils (0.0 - 0.7 /CUMM) 0 Absolute Basophils (0.0 - 0.2 /CUMM) 0 PUBS MCHC (33.0 - 37.0 G/DL) 33.5 Assessment/Plan Assessment/Plan pod #2 status post lysis of adhesion Advanced to clears Continue with IV hydration until tolerating adequate by mouth, patient's urine output has picked up a bit however she had elevation in her BUN and creatinine, still within normal limits however likely secondary to volume depletion, also slightly elevated heart rate Monitor urine output Heparin subcutaneous for DVT prophylaxis Follow electrolytes, magnesium repleted last night Encourage ambulation Monitor for return of bowel function Core Measures Venous Thromboembolism VTE Risk Factors Age>40 No Mechanical VTE Prophylaxis d/t N/A MechProphylax Ordered No VTE Pharm Prophylaxis d/t NA PharmProphylax ordered
[2017-02-26 11:40] LABS: ABSOLUTE BASOPHIL COUNT 0 /CUMM (0.0-0.2); ABSOLUTE EOSINOPHIL COUNT 0.1 /CUMM (0.0-0.7); BASOPHIL % 0.3 % (0.0-2.0); EOSINOPHIL % 1.3 % (0-5); GRANULOCYTE % 76.3 % (42.2-75.2); HEMATOCRIT 36.3 % (37-47); MEAN CORPUSCULAR HGB 32.1 PG (27.0-31.0); MEAN CORPUSCULAR HGB CONC 33.4 G/DL (33.0-37.0); MEAN PLATELET VOLUME 8.4 FL (7.4-10.4); PLATELET COUNT 222 /CUMM (130-400); RBC DISTRIBUTION WIDTH 12.3 % (11.5-14.5); RED BLOOD CELL CT 3.79 /CUMM (4.20-5.40); WHITE BLOOD CELL COUNT 9.1 /CUMM (4.8-10.8)
--- NOTE | 2017-02-26 15:11 | PN- Cardiology ---
Subjective Subjective: Sitting at bedside chair. No specific new symptoms or issues. Started clear liquids today. Objective Vital Signs and I&Os Vital Signs Date Time Temp Pulse Resp B/P B/P Pulse O2 O2 Flow FiO2 Mean Ox Delivery Rate 02/26 0634 99.7 91 20 100/70 91 Room Air 02/25 2336 98.5 104 20 98/60 91 Intake & Output 02/26 1600 02/26 0800 02/26 0000 02/25 1600 02/25 0800 02/25 0000 Intake Total 900 700 700 800 60 Output Total 100 300 300 325 Balance -100 600 400 375 800 60 Intake, IV 900 700 600 800 Intake, Oral 100 0 60 Output, Urine 100 300 300 325 Current Medications: Current Medications Sig/Nancy Start time Last Medication Dose Route Stop Time Status Admin Acetaminophen 1,000 MG Q6P PRN 02/25 1715 AC 02/25 N/A 1 UNIT IV 2210 Acetaminophen 650 MG Q6P PRN 02/21 2230 DC 02/22 PO 2035 Artificial Tears 2 GTT 4 TIMES/DAY PRN 02/19 2330 02/20 OPH 1910 Dextrose/Lactated 1,000 ML Q10H 02/26 1015 AC Ringer's IV Dextrose/Lactated 1,000 ML Q10H 02/26 1015 CAN Ringer's IV Dextrose/Lactated 1,000 ML Q10H 02/23 1000 DC 02/26 Ringer's IV 0810 Fluticasone 2 SPRAY DAILY PRN 02/18 1515 02/25 Propionate BOSSMAN 2211 Heparin Sodium 5,000 UNIT Q8 02/18 2200 AC (Porcine) SC Magnesium Sulfate 1 GM ONCE ONE 02/25 2330 KS 02/26 Dextrose/Water 100 ML IV 02/26 0329 0043 Melatonin 3 MG AT BEDTIME 02/18 2200 AC 02/25 PO 2210 Morphine Sulfate 4 MG Q4P PRN 02/24 1730 02/25 IV 1316 Morphine Sulfate 6 MG Q4 HRS NEEDED PRN 02/24 1730 IV Omeprazole 20 MG DAILY AC 02/22 0700 AC 02/26 PO 0530 Phenol 2 SPRAY Q2P PRN 02/25 0030 02/25 EXT 1720 Results Last 48 Hrs of Labs/Mics: Laboratory Tests 02/26/17 1100: RBC 3.79 L, MCV 96.0, MCH 32.1 H, RDW 12.3, MPV 8.4, Gran % 76.3 H, Lymphocytes % 11.4 L, Monocytes % 10.7 H, Eosinophils % 1.3, Basophils % 0.3, Absolute Granulocytes 7.0 H, Absolute Lymphocytes 1.0 L, Absolute Monocytes 1.0 H, Absolute Eosinophils 0.1, Absolute Basophils 0, PUBS MCHC 33.4 02/26/17 0615: Anion Gap 12, Estimated GFR > 60, BUN/Creatinine Ratio 15.6, Magnesium 1.8 02/25/17 0610: Anion Gap 12, Estimated GFR > 60, BUN/Creatinine Ratio 11.7, Magnesium 1.6, CBC w Diff NO MAN DIFF REQ, RBC 4.07 L, MCV 96.4, MCH 32.3 H, RDW 12.8, MPV 9.4, Gran % 72.4, Lymphocytes % 15.2 L, Monocytes % 11.5 H, Eosinophils % 0.5, Basophils % 0.4, Absolute Granulocytes 4.9, Absolute Lymphocytes 1.0 L, Absolute Monocytes 0.8 H, Absolute Eosinophils 0, Absolute Basophils 0, PUBS MCHC 33.5 Microbiology 02/24 1519 URINE ROUT: Urine Culture - COMP ESCHERICHIA COLI Assessment/Plan Assessment/Plan Assessment: 1. Recurrent abdominal pain with concern for small bowel obstruction 2. History of known asymptomatic moderate to severe aortic stenosis by Echo 2017; now severe by current echocardiogram 3. History of multiple prior abdominal surgeries 4. Status post open lysis of adhesions Recommendations: -Continue as per the surgical service. -Continue to maintain a euvolemic status with equal intakes and outputs -Follow-up labs in the morning -Further evaluation and follow-up for aortic stenosis as outpatient. Continue telemetry? Yes
[2017-02-26 15:43] VITALS: BP 106/80
[2017-02-26 23:14] VITALS: BP 98/70
[2017-02-27 07:09] VITALS: BP 98/48
--- NOTE | 2017-02-27 09:06 | PN- General Surgery ---
See Addendum Subjective Subjective: No acute overnight events reported. Pt states IV fluids were stopped around midnight. She is aware that urine output is low. Has been taking in clear liquids, tolerating them. No c/o abdominal pain. States that she is passing flatus. Denies chest pain, shortenss of breath and difficulty breathing. Is sitting up at side of bed, aware she needs to ambulate. Objective Vital Signs and I&Os Vital Signs Date Time Temp Pulse Resp B/P B/P Pulse O2 O2 Flow FiO2 Mean Ox Delivery Rate 02/27 0709 97.9 74 18 98/48 91 Room Air 02/27 0600 93 Room Air 02/26 2314 97.9 77 16 98/70 93 Room Air 02/26 2200 93 Room Air 02/26 1714 99.0 02/26 1615 100.0 02/26 1543 100.0 82 20 106/80 92 Room Air Intake & Output 02/27 1600 02/27 0800 02/27 0000 02/26 1600 02/26 0800 02/26 0000 Intake Total 110 1100 1100 900 700 Output Total 200 350 200 300 300 Balance -90 750 900 600 400 Intake, IV 10 800 800 900 700 Intake, Oral 100 300 300 Number 0 Bowel Movements Output, Urine 200 350 200 300 300 Physical Exam: General: Alert and oriented x3, no acute distress Cardiac: RRR, s1s2 Pulm: CTA bilaterally ABD: Softly distended, some jasson-incisional tenderness. No guarding on exam. Dressing midline, dry and intact. No surrounding erythema. Extremities: Moves all extremities, distal sensation grossly intact. Skin warm and well perfused. DP pulses palpable. No peripheral edema. Bilateral calves soft and non-tender. Assessment/Plan Assessment/Plan This is a 66 year old female, POD 3, s/p e-lap with shannan. PMH includes aortic stenosis. PSH signficant for gastric bypass -Continue to monitor urine output. Low overnight, 200 cc documented. IV fluids have been dc'd overnight. Is taking in po clears this am. Will consider restarting iv fluids at low rate if output remains low. -Ciprofloxacin for 3 days for uti, since starting has been afebrile. ?recheck wbc -Replete potassium, 3.4 today, mag 1.8, BUN from 14 to 13, will continue to follow -Continue clears -Hep sub q/alps for dvt ppx -OOB/Ambulation encouraged -Incentive spirometry encouraged -Will d/w Dr. Enriquez/Moustapha Core Measures Venous Thromboembolism VTE Risk Factors Age>40 No Mechanical VTE Prophylaxis d/t N/A MechProphylax Ordered No VTE Pharm Prophylaxis d/t NA PharmProphylax ordered
--- NOTE | 2017-02-27 12:23 | PN- Vascular Surgery ---
Surgical Brief Attending Note Brief Attending Note: Asked to see this patient urgently for left arm edema and ecchymosis. Patient had undergone lysis of adhesions for bowel obstruction, and had left radial a.line for monitoring. A.line was removed, and she has progressive ecchymosis and edema of left arm. Denies hand numbness or motor dysfunction. She notes clear liquid from prior venotomy site. Denies cellulitis, dyspnea. On examination, she has palpable ulnar and brachial pulses bilaterally. Ecchymosis around radial arteriotomy without hematoma or pulsatile mass. Sensation and motor intact. There is no evidence of active bleeding. Recommend compression in the form of WES wrap from hand to elbow. Encourage hand use to promote edema resorption. Contact me for onset of hand numbness or weakness.
--- NOTE | 2017-02-27 14:19 | ULTRASOUND REPORT ---
EXAMINATION: US DUPLEX UPPER EXTREMITY ARTERY LIMITED, LEFT CLINICAL INFORMATION: 66-year-old female with left arm swelling. Patient reportedly has radial arterial line. Evaluate for vascular occlusion. COMPARISON: None TECHNIQUE: Grayscale and pulsed color Doppler images with spectral waveform acquisition performed in the left upper extremity using a linear 9 MHz transducer. FINDINGS: The left subclavian artery has a normal triphasic waveform and peak systolic velocity of 82 cm/sec. Left axillary artery has a normal triphasic waveform, peak systolic velocity of 45 cm/sec. The proximal, mid and distal brachial artery exhibit normal triphasic waveforms with peak systolic velocities of 76, 84 and 73 cm/sec, respectively. Mild subcutaneous tissue edema observed in the area of bruising in the antecubital fossa; however, no soft tissue hematoma or superficial vein thrombosis in this region. IMPRESSION: No evidence of arterial thrombosis or stenosis in the examined left upper extremity.
[2017-02-27 14:48] VITALS: BP 122/72
--- NOTE | 2017-02-27 14:49 | PN- Cardiology ---
Subjective Subjective: Stable, doing well. No cardiac symptoms. Tolerating clear liquids. Objective Vital Signs and I&Os Vital Signs Date Time Temp Pulse Resp B/P B/P Pulse O2 O2 Flow FiO2 Mean Ox Delivery Rate 02/27 1400 Room Air Room Air 02/27 0709 97.9 74 18 98/48 91 Room Air 02/27 0600 93 Room Air 02/26 2314 97.9 77 16 98/70 93 Room Air 02/26 2200 93 Room Air 02/26 1714 99.0 02/26 1615 100.0 02/26 1543 100.0 82 20 106/80 92 Room Air Intake & Output 02/27 1600 02/27 0800 02/27 0000 02/26 1600 02/26 0800 02/26 0000 Intake Total 646 685 3843 1100 900 700 Output Total 100 200 350 200 300 300 Balance 300 -90 750 900 600 400 Intake, IV 10 800 800 900 700 Intake, Oral 400 100 300 300 Number 0 0 Bowel Movements Output, Urine 100 200 350 200 300 300 Physical Exam: Gen.: Overall, overweight, white female. No acute distress. Alert and rate 3 HEENT: Normal Neck: JVP normal, carotid upstrokes mildly delayed bilaterally with soft transmitted murmurs Chest: Clear bilaterally Heart: Regular S1, S2. Soft S4. 3/6 systolic ejection murmur of aortic stenosis Abdomen: Normal Extremities: Stable Current Medications: Current Medications Sig/Nancy Start time Last Medication Dose Route Stop Time Status Admin Acetaminophen 1,000 MG Q6P PRN 02/25 1715 AC 02/26 N/A 1 UNIT IV 2216 Artificial Tears 2 GTT 4 TIMES/DAY PRN 02/19 2330 AC 02/20 OPH 1910 Ciprofloxacin 500 MG BID 02/26 1615 AC 02/27 PO 03/02 1614 0907 Dextrose/Lactated 1,000 ML Q10H 02/26 1015 DC 02/26 Ringer's IV 1906 Fluticasone 2 SPRAY DAILY PRN 02/18 1515 AC 02/26 Propionate BOSSMAN 2216 Heparin Sodium 5,000 UNIT Q8 02/18 220 AC (Porcine) SC Melatonin 3 MG AT BEDTIME 02/18 220 AC 02/26 PO 2216 Morphine Sulfate 2 MG Q4P PRN 02/27 1245 AC IV Morphine Sulfate 4 MG Q4P PRN 02/24 1730 AC 02/25 IV 1316 Morphine Sulfate 6 MG Q4 HRS NEEDED PRN 02/24 1730 DC IV Omeprazole 20 MG DAILY AC 02/22 0700 AC 02/27 PO 0604 Phenol 2 SPRAY Q2P PRN 02/25 0030 AC 02/27 EXT 1120 Potassium Chloride 20 MEQ BID 02/27 1000 AC 02/27 PO 1118 Results Last 48 Hrs of Labs/Mics: Laboratory Tests 02/27/17 0645: Magnesium 1.8 02/27/17 0645: Anion Gap 10, Estimated GFR > 60, BUN/Creatinine Ratio 18.6 02/26/17 1100: RBC 3.79 L, MCV 96.0, MCH 32.1 H, RDW 12.3, MPV 8.4, Gran % 76.3 H, Lymphocytes % 11.4 L, Monocytes % 10.7 H, Eosinophils % 1.3, Basophils % 0.3, Absolute Granulocytes 7.0 H, Absolute Lymphocytes 1.0 L, Absolute Monocytes 1.0 H, Absolute Eosinophils 0.1, Absolute Basophils 0, PUBS MCHC 33.4 02/26/17 0615: Anion Gap 12, Estimated GFR > 60, BUN/Creatinine Ratio 15.6, Magnesium 1.8 Assessment/Plan Assessment/Plan Assessment: 1. Recurrent abdominal pain with concern for small bowel obstruction 2. History of known asymptomatic moderate to severe aortic stenosis by Echo 2017; now severe by current echocardiogram 3. History of multiple prior abdominal surgeries 4. Status post open lysis of adhesions Recommendations: -Continue as per the surgical service. -Continue to maintain a euvolemic status with equal intakes and outputs -Follow-up labs in the morning -Further evaluation and follow-up for aortic stenosis as outpatient. Continue telemetry? No
[2017-02-27 23:01] VITALS: BP 128/78
[2017-02-28 06:50] VITALS: BP 110/78
--- NOTE | 2017-02-28 08:00 | PN- Student ---
See Addendum Miki Cabral 02/28/17 0738: Subjective Subjective: Chayo is a 66yo F with a pmhx of aortic stenosis and gastric bypass. She is post op day 4 s/p exploratory laporoscopy + lysis of adhesions r/ t small bowel obstruction. Pt states she has minimal abd pain at this time but is complaining of the food available as an inpatient. She admits to passing flatus and had 1 small solid BM last night. PT states her urine output has increased and it 'looks less concentrated now.' Pt states she gets nauseus- but on further questioning this nausea is 2/2 not liking chicken broth or jello. No vomitting. PT denies headache, vision changes, SOB, chest pain, abd pain, paresthesias or syncope. No other complaints at this time. Objective Objective: GENERAL: PT lying left lateral decubitus with head of bed elevated on exam. A+ Ox4. In no acute distress. RESP: Fair respiratory effort, CTAB. CARDIO: RRR, holosystolic murmur audible- best heard at RUSB, S1 and S2 present. ABD: Soft, obese, nontender, nondistended, loud normoactive bowel sounds audible in all 4 quadrants. Dressing is clean, dry and intact- pt states dressing was changes 02/27/17 because it was 'oozing' at the distal segment. Incision not visualized at this time. MUSC: Pt has had LUE swelling x 2 days. Doppler US reports no acute findings. PT previously had WES bandage on (which has decreased the swelling significantly), took the WES wrap off at 3am this morning because of discomfort. Minimal swelling currently noted. Mild purple echymosis noted at L wrist and AC- likely secondary to previous A line and IV access. 1+ pitting edema noted in lower extremities bilaterally. 5/5 strength, full ROM, non painful to palpation. NEURO: sensation intact throughout. Results Results: Laboratory Tests 02/28/17 0645: Sodium Pending, Potassium Pending, Chloride Pending, Carbon Dioxide Pending, Anion Gap Pending, BUN Pending, Creatinine Pending, BUN/Creatinine Ratio Pending , Phosphorus Pending, Magnesium Pending, CBC w Diff Pending, WBC Pending, RBC Pending, Hgb Pending, Hct Pending, MCV Pending, MCH Pending, RDW Pending, Plt Count Pending, MPV Pending, PUBS MCHC Pending 02/27/17 0645: Magnesium 1.8 02/27/17 0645: Anion Gap 10, Estimated GFR > 60, BUN/Creatinine Ratio 18.6 02/26/17 1100: RBC 3.79 L, MCV 96.0, MCH 32.1 H, RDW 12.3, MPV 8.4, Gran % 76.3 H, Lymphocytes % 11.4 L, Monocytes % 10.7 H, Eosinophils % 1.3, Basophils % 0.3, Absolute Granulocytes 7.0 H, Absolute Lymphocytes 1.0 L, Absolute Monocytes 1.0 H, Absolute Eosinophils 0.1, Absolute Basophils 0, PUBS MCHC 33.4 02/26/17 0615: Anion Gap 12, Estimated GFR > 60, BUN/Creatinine Ratio 15.6, Magnesium 1.8 Assessment/Plan Assessment: Chayo is a 66yo obese female with a past medical history significant for aortic stenosis and gastric bypass presenting as an inpatient post op day 4 s/p exploratory laparoscopy with lysis of adhesions. She seems to recovering well from the procedure as she is showing signs of bowel function. She is hypokalemic, has had decreased urine output and has + urine culture growth for E.coli. She has been started on a 3 day course of cipro PO and had a bolus of IVF started 02/27/17. No questions or concerns at this time. Plan: Encourage ambulation throughout the unit. Advance diet to soft foods as she shows signs of improving bowel function. Administer PO Kdur for hyopkalemia- mg and phos levels pending. Cardiac consult to administer lasix as she is showing mild signs of fluid overload (pitting edema in lower extremities, decreased urine output). Continue IVF Continue cipro PO for UTI on urine culture (e.coli) Lucía Mtz 02/28/17 0810: Assessment/Plan Plan: agree with above PAHaleyS note tolerating clears. advance to full liquids f/u labs oob/ambulation cipro for e.coli uti will d/w
[2017-02-28 08:34] LABS: ABSOLUTE BASOPHIL COUNT 0 /CUMM (0.0-0.2); ABSOLUTE EOSINOPHIL COUNT 0.2 /CUMM (0.0-0.7); ABSOLUTE GRANULOCYTE CT 2.6 /CUMM (1.4-6.5); ABSOLUTE LYMPH COUNT 1.1 /CUMM (1.2-3.4); ABSOLUTE MONOCYTE COUNT 0.5 /CUMM (0.10-0.60); BASOPHIL % 0.5 % (0.0-2.0); HEMATOCRIT 32.6 % (37-47); MEAN CORPUSCULAR HGB 32.1 PG (27.0-31.0); MEAN CORPUSCULAR HGB CONC 33.5 G/DL (33.0-37.0); MEAN CORPUSCULAR VOLUME 95.8 FL (81.0-99.0); MEAN PLATELET VOLUME 8.6 FL (7.4-10.4); PLATELET COUNT 198 /CUMM (130-400); RBC DISTRIBUTION WIDTH 12.3 % (11.5-14.5)
[2017-02-28 09:43] LABS: WHITE BLOOD CELL COUNT 4.3 /CUMM (4.8-10.8)
--- NOTE | 2017-02-28 09:44 | PN- Cardiology ---
Subjective Subjective: The patient is awake, alert The events of the last 24 hours as well as telemetry were reviewed. Review of Systems: The review of systems is negative for chest pains, palpitations nor lightheadedness. The remainder of the 14 point review of systems is noncontributory with the exception of above. Objective Vital Signs and I&Os Vital Signs Date Time Temp Pulse Resp B/P B/P Pulse O2 O2 Flow FiO2 Mean Ox Delivery Rate 02/28 0650 97.9 65 20 110/78 95 Room Air 02/28 0600 Room Air 02/27 2301 98.9 70 18 128/78 97 Room Air 02/27 2200 97 Room Air 02/27 1448 99.5 73 18 122/72 92 Room Air 02/27 1400 Room Air Room Air Intake & Output 02/28 1600 02/28 0800 02/28 0000 02/27 1600 02/27 0800 02/27 0000 Intake Total 310 850 531 264 2308 Output Total 600 250 100 200 350 Balance -290 600 300 -90 750 Intake, IV 210 400 10 800 Intake, Oral 100 450 400 100 300 Number 1 0 0 Bowel Movements Output, Urine 600 250 100 200 350 Physical Exam: General: Nontoxic, no apparent distress. HEENT: Sclera and conjunctiva within normal limits, without xanthelasmas. Neck: Carotids 2+ without bruits. Respiratory: Clear to auscultation, air movement is good, without accessory respiratory muscle use. Heart: Regular rate and rhythm, 3/6 systolic crescendo decrescendo murmur heard best at the right sternal border, without JVD. Abdomen: Soft, nontender, no masses, normoactive bowel sounds. Extremities: Without clubbing, cyanosis, without edema. Neuro: Nonfocal exam, strength, 5 out of 5 Skin: Within normal limits without lesions. Psych: Mood and affect: Normal Current Medications: Current Medications Sig/Nancy Start time Last Medication Dose Route Stop Time Status Admin Acetaminophen 1,000 MG Q6P PRN 02/25 1715 AC 02/27 N/A 1 UNIT IV 2211 Artificial Tears 2 GTT 4 TIMES/DAY PRN 02/19 2330 AC 02/27 OPH 2213 Ciprofloxacin 500 MG BID 02/26 1615 AC 02/28 PO 03/02 1614 0815 Diphenhydramine HCl 50 MG ONCE ONE 02/28 0300 DC 02/28 IV 02/28 0301 0330 Fluticasone 2 SPRAY DAILY PRN 02/18 1515 AC 02/27 Propionate BOSSMAN 2211 Heparin Sodium 5,000 UNIT Q8 02/18 2200 AC (Porcine) SC Melatonin 3 MG AT BEDTIME 02/18 2200 AC 02/27 PO 2212 Morphine Sulfate 2 MG Q4P PRN 02/27 1245 AC IV Morphine Sulfate 4 MG Q4P PRN 02/24 1730 AC 02/25 IV 1316 Morphine Sulfate 6 MG Q4 HRS NEEDED PRN 02/24 1730 DC IV Omeprazole 20 MG DAILY AC 02/22 0700 AC 02/28 PO 0616 Phenol 2 SPRAY Q2P PRN 02/25 0030 AC 02/28 EXT 0617 Potassium Chloride 20 MEQ BID 02/27 1000 AC 02/28 PO 0815 Sodium Chloride 500 ML BOLUS ONE 02/27 1800 DC 02/27 IV 02/27 1859 1909 Results Last 48 Hrs of Labs/Mics: Laboratory Tests 02/28/17 0645: Anion Gap 9, Estimated GFR > 60, BUN/Creatinine Ratio 16.7, Phosphorus 3.4, Magnesium 1.8, CBC w Diff Pending, WBC Pending, RBC Pending, Hgb Pending, Hct Pending, MCV Pending, MCH Pending, RDW Pending, Plt Count Pending, MPV Pending, PUBS MCHC Pending 02/27/17 0645: Magnesium 1.8 02/27/17 0645: Anion Gap 10, Estimated GFR > 60, BUN/Creatinine Ratio 18.6 02/26/17 1100: RBC 3.79 L, MCV 96.0, MCH 32.1 H, RDW 12.3, MPV 8.4, Gran % 76.3 H, Lymphocytes % 11.4 L, Monocytes % 10.7 H, Eosinophils % 1.3, Basophils % 0.3, Absolute Granulocytes 7.0 H, Absolute Lymphocytes 1.0 L, Absolute Monocytes 1.0 H, Absolute Eosinophils 0.1, Absolute Basophils 0, PUBS MCHC 33.4 Assessment/Plan Assessment/Plan 1. Recurrent abdominal pain with concern for small bowel obstruction 2. severe aortic stenosis, progressed over the past several months (mean gradient 44) sees 3. History of multiple prior abdominal surgeries 4. Status post open lysis of adhesions The degree of her aortic stenosis appears to have progressed over the past several months by echocardiography. Remains minimally symptomatic for the same under regular, daily activities. We will continue her current cardiac medication regimen and following discharge will follow-up in the office for further discussion regarding next steps in treatment for her aortic stenosis. Continue telemetry? No
[2017-02-28 15:08] VITALS: BP 124/80
[2017-02-28 22:54] VITALS: BP 102/74
[2017-03-01 06:55] VITALS: BP 112/64
--- NOTE | 2017-03-01 09:11 | PN- General Surgery ---
See Addendum Subjective Subjective: Tolerated fulls better last night. No nausea. Willing to try food again today. Passing flatus and +bm in the last 1-2 days. She reports issue with ability to transport home since she drove herself to the hospital, but she is open to suggestions with us and case management director. She has not been requiring any pain medication for a few days. Objective Vital Signs and I&Os Vital Signs Date Time Temp Pulse Resp B/P B/P Pulse O2 O2 Flow FiO2 Mean Ox Delivery Rate 03/01 0655 97.9 66 20 112/64 95 Room Air 03/01 0600 Room Air 02/28 2254 98.9 72 26 102/74 95 Room Air 02/28 2200 96 Room Air 02/28 1508 98.1 70 18 124/80 97 Room Air 02/28 1400 Room Air Intake & Output 03/01 1600 03/01 0800 03/01 0000 02/28 1600 02/28 0800 02/28 0000 Intake Total 480 580 400 310 850 Output Total 1000 650 500 600 250 Balance -520 -70 -100 -290 600 Intake, IV 100 210 400 Intake, Oral 480 480 400 100 450 Number 0 0 1 1 0 Bowel Movements Output, Urine 1000 650 500 600 250 Physical Exam: General - alert & oriented. comfortable. no acute distress. Lungs - clear Cardiac - s1s2. reg Abdomen - obese. midline incision approximated with rere. no erythema or exudates. expected jasson-incisional tenderness. Extremities - left forearm bruising stable, with improving edema. nvi. radial pulses 2+ b/l. no calf tenderness. Current Medications: Current Medications Sig/Nancy Start time Last Medication Dose Route Stop Time Status Admin Acetaminophen 1,000 MG Q6P PRN 02/25 1715 AC 02/28 N/A 1 UNIT IV 212 Artificial Tears 2 GTT 4 TIMES/DAY PRN 02/19 2330 AC 02/28 OPH 2114 Ciprofloxacin 500 MG BID 02/26 1615 AC 02/28 PO 03/02 161 211 Diphenhydramine HCl 25 MG ONCE ONE 03/01 0200 DC 03/01 IV 03/01 020 0154 Fluticasone 2 SPRAY DAILY PRN 02/18 1515 AC 02/28 Propionate BOSSMAN 2117 Heparin Sodium 5,000 UNIT Q8 02/18 2199 AC (Porcine) SC Melatonin 3 MG AT BEDTIME 02/18 2199 AC 02/28 PO 2113 Morphine Sulfate 2 MG Q4P PRN 02/27 1245 DC IV Morphine Sulfate 4 MG Q4P PRN 02/24 1730 DC 02/25 IV 1316 Omeprazole 20 MG DAILY AC 02/22 0700 AC 03/01 PO 0607 Phenol 2 SPRAY Q2P PRN 02/25 0030 AC 03/01 EXT 0158 Potassium Chloride 20 MEQ BID 02/27 1000 AC 02/28 PO 0815 Results Last 48 Hours of Labs: Laboratory Tests 02/29 644 Chemistry Sodium (137 - 145 mmol/L) 137 Potassium (3.5 - 5.1 mmol/L) 3.5 Chloride (98 - 107 mmol/L) 101 Carbon Dioxide (22 - 30 mmol/L) 27 Anion Gap (5 - 16) 9 BUN (7 - 17 mg/dL) 10 Creatinine (0.5 - 1.0 mg/dL) 0.6 Estimated GFR (>60 ml/min) > 60 BUN/Creatinine Ratio (7 - 25 %) 16.7 Phosphorus (2.5 - 4.5 mg/dL) 3.4 Magnesium (1.6 - 2.3 mg/dL) 1.8 Hematology CBC w Diff NO MAN DIFF REQ WBC (4.8 - 10.8 /CUMM) 4.3 L RBC (4.20 - 5.40 /CUMM) 3.40 L Hgb (12.0 - 16.0 G/DL) 10.9 L Hct (37 - 47 %) 32.6 L MCV (81.0 - 99.0 FL) 95.8 MCH (27.0 - 31.0 PG) 32.1 H RDW (11.5 - 14.5 %) 12.3 Plt Count (130 - 400 /CUMM) 198 MPV (7.4 - 10.4 FL) 8.6 Gran % (42.2 - 75.2 %) 59.0 Lymphocytes % (20.5 - 51.1 %) 25.0 Monocytes % (1.7 - 9.3 %) 11.5 H Eosinophils % (0 - 5 %) 4.0 Basophils % (0.0 - 2.0 %) 0.5 Absolute Granulocytes (1.4 - 6.5 /CUMM) 2.6 Absolute Lymphocytes (1.2 - 3.4 /CUMM) 1.1 L Absolute Monocytes (0.10 - 0.60 /CUMM) 0.5 Absolute Eosinophils (0.0 - 0.7 /CUMM) 0.2 Absolute Basophils (0.0 - 0.2 /CUMM) 0 PUBS MCHC (33.0 - 37.0 G/DL) 33.5 Assessment/Plan Assessment/Plan This is a 66 year old female with hx aortic stenosis and gastric bypass for morbid obesity, POD#5 s/p lap to open shannan, s/p completion of 3 days cipro for uti tolerating fulls. try regular diet again not requiring pain medication completion of treatment for uti with 3 days of cipro oob/ambulation encouraged hep sc - dvt ppx no labs ordered today case management director notified of issue with transportation, to assist with this for d/c home today patient seen & examined with she understands & agrees with plan Core Measures Venous Thromboembolism VTE Risk Factors Age>40 No Mechanical VTE Prophylaxis d/t N/A MechProphylax Ordered No VTE Pharm Prophylaxis d/t NA PharmProphylax ordered
--- NOTE | 2017-03-01 09:40 | PN- Cardiology ---
Subjective Subjective: Patient feels well. She is anxious to be discharged. Review of Systems: Eyes no blurred or double vision Ears no deafness or ringing Nose and throat no recurrent sinusitis Lungs per history of present illness Heart per history of present illness Abdomen no nausea vomiting Musculoskeletal occasional muscle and joint pains Psych no anxiety or depression Neuro without recurrent headache or seizures Endocrine no heat or cold intolerance Objective Vital Signs and I&Os Vital Signs Date Time Temp Pulse Resp B/P B/P Pulse O2 O2 Flow FiO2 Mean Ox Delivery Rate 03/01 0655 97.9 66 20 112/64 95 Room Air 03/01 0600 Room Air 02/28 2254 98.9 72 26 102/74 95 Room Air 02/28 2200 96 Room Air 02/28 1508 98.1 70 18 124/80 97 Room Air 02/28 1400 Room Air Intake & Output 03/01 1600 03/01 0800 03/01 0000 02/28 1600 02/28 0800 02/28 0000 Intake Total 480 580 400 310 850 Output Total 1000 650 500 600 250 Balance -520 -70 -100 -290 600 Intake, IV 100 210 400 Intake, Oral 480 480 400 100 450 Number 0 0 1 1 0 Bowel Movements Output, Urine 1000 650 500 600 250 Physical Exam: Patient is a well-developed well-nourished female appearing in no acute distress HEENT is unremarkable Neck is supple there is no JVD Lungs are clear Heart regular rhythm S1 and S2 are normal no gallops or rubs 3/6 systolic ejection murmur rub or sternal border Abdomen bowel sounds positive Extremities without edema Current Medications: Current Medications Sig/Nancy Start time Last Medication Dose Route Stop Time Status Admin Acetaminophen 1,000 MG Q6P PRN 02/25 1715 AC 02/28 N/A 1 UNIT IV 2124 Artificial Tears 2 GTT 4 TIMES/DAY PRN 02/19 2330 AC 02/28 OPH 2114 Ciprofloxacin 500 MG BID 02/26 1615 AC 03/01 PO 03/02 1614 0929 Diphenhydramine HCl 25 MG ONCE ONE 03/01 0200 DC 03/01 IV 03/01 0201 0154 Fluticasone 2 SPRAY DAILY PRN 02/18 1515 AC 02/28 Propionate BOSSMAN 2117 Heparin Sodium 5,000 UNIT Q8 02/18 2199 AC (Porcine) SC Melatonin 3 MG AT BEDTIME 02/18 2199 AC 01/15 PO 2113 Morphine Sulfate 2 MG Q4P PRN 02/27 1245 DC IV Morphine Sulfate 4 MG Q4P PRN 02/24 1730 DC 02/25 IV 1316 Omeprazole 20 MG DAILY AC 02/22 0700 AC 03/01 PO 0607 Phenol 2 SPRAY Q2P PRN 02/25 0030 AC 03/01 EXT 0158 Potassium Chloride 20 MEQ BID 02/27 1000 AC 02/28 PO 0815 Results Last 48 Hrs of Labs/Mics: Laboratory Tests 02/28/17 0645: Anion Gap 9, Estimated GFR > 60, BUN/Creatinine Ratio 16.7, Phosphorus 3.4, Magnesium 1.8, CBC w Diff NO MAN DIFF REQ, RBC 3.40 L, MCV 95.8, MCH 32.1 H, RDW 12.3, MPV 8.6, Gran % 59.0, Lymphocytes % 25.0, Monocytes % 11.5 H, Eosinophils % 4.0, Basophils % 0.5, Absolute Granulocytes 2.6, Absolute Lymphocytes 1.1 L, Absolute Monocytes 0.5, Absolute Eosinophils 0.2, Absolute Basophils 0, PUBS MCHC 33.5 Assessment/Plan Assessment/Plan 1. Recurrent abdominal pain with concern for small bowel obstruction 2. severe aortic stenosis, progressed over the past several months (mean gradient 44) sees 3. History of multiple prior abdominal surgeries 4. Status post open lysis of adhesions The degree of her aortic stenosis appears to have progressed over the past several months by echocardiography. Remains minimally symptomatic for the same under regular, daily activities. We will continue her current cardiac medication regimen and following discharge will follow-up in the office for further discussion regarding next steps in treatment for her aortic stenosis. She has upcoming appointment with Riccardo Maciel MD March 17. Continue telemetry? No
--- NOTE | 2017-03-02 09:07 | Surgical Discharge Summary ---
Visit Information Visit Dates Admission Date: 02/19/17 Discharge Date: 03/01/17 History of Present Illness Chief Complaint: recurrent sbo Medical History Blood Transfusion Hx: No Neurological: vertigo EENT: cataracts Cardiovascular: aortic stenosis Respiratory: NONE Gastrointestinal: GASTRIC BYPASS SBO Hepatic: NONE Renal: NONE Musculoskeletal: NONE Psychiatric: NONE Endocrine: obesity Blood Disorders: ITP Cancer(s): uterine ca sp hyst, RT [employer]/Reproductive: NONE History of MRSA: No History of VRE: No History of CDIFF: No Isolation History: Standard Surgical History Pertinent Surgical History: cholecystectomy (open), cataract removal, hernia repair-ventral (with mesh, multiple operations), hysterectomy (uterine ca, sp RT 1989), lap gastric bypass, 2003 abdominoplasty, back lift, arm lift, thigh lift. 2007 Psychosocial History Where Do You Live? Home Who Do You Live With? Sister What is Your Primary Language? Setswana ETOH Use: heavy use, bottle of wine daily Review of Systems: see preop hp Hospital Course Course Attending Physician: Marcos Gerard MD Primary Care Physician: Denys Marrero MD Allergies: Coded Allergies: lactose ("SNIFFLES" 02/18/17) Significant Procedures: lysis of adhesions Disposition Summary Disposition Principal Diagnosis: intestinal obstruction Additional Diagnosis: none Discharge Disposition: home or self care Discharge Instructions General Discharge Information Code Status: Full Code Patient's Diet: regular Patient's Activity: no lifting Follow-Up Instructions/Appts: 2 weeks Medications at Discharge Discharge Medications: Continue taking these medications: Fluticasone Propionate (Fluticasone Propionate) 50 MCG/ACTUATION SPRAY.SUSP 1 [place] Both sides of nose as needed for POST NASAL DRIP Qty = 16 Comments: Last Taken: 03/01/17 Time: 9:15 PM
== END 2017-03-01 11:45 | DRG 336 ==
LOC: ERH 09:01 → 2NB 16:05 → PACUH 16:05 → 2NB 16:05 → ENTRNSPT 16:16 → 2NB 16:53 → CMPTRNSPT 17:06 → 2NB 20:08 → 1NO 02-19 16:49 → 2NB 02-21 13:31 → ENRESERV 02-24 17:35 → 1NO 02-24 17:47 → ENTRNSPT 03-01 11:35 → EDTRNSPTSTS 03-01 11:38 → EDTRNSPT 03-01 11:38 → 1NO 03-01 11:45 → CMPTRNSPT 03-01 11:46
PROVIDERS: Emergency Medicine; Nurse Practitioner; Physician Assistant; Physician Assistant Surgical
PROC: 0DJD4ZZ Inspection of Lower Intestinal Tract, Percutaneous Endoscopic Approach (ICD-10-PCS; principal; 2017-02-24)
PROC: 0DNB0ZZ Release Ileum, Open Approach (ICD-10-PCS; principal; 2017-02-24)
PROC: 3E0T3BZ Introduction of Anesthetic Agent into Peripheral Nerves and Plexi, Percutaneous Approach (ICD-10-PCS; 2017-02-24)
DX: K56.51 Intestinal adhesions [bands], with partial obstruction (principal); D69.3 Immune thrombocytopenic purpura; N39.0 Urinary tract infection, site not specified; I35.0 Nonrheumatic aortic (valve) stenosis; B96.20 Unspecified Escherichia coli [E. coli] as the cause of diseases classified elsewhere; Z98.84 Bariatric surgery status; Z85.42 Personal history of malignant neoplasm of other parts of uterus
CPT/HCPCS: 1NP; 2NAP; 2NBP; 6040; 36415; 71045; 74021; 82436; 87086; 93005; 93010; 93306; C9399; G0378; J0131; J1100; J1200; J1644; J2405; J7040; J7120

== ENCOUNTER 2017-06-12 09:27 | Observation (INO) | payer OTHER, MEDICARE ==
[~2017-06-12] VITALS: Ht 177.8 cm; Wt 112.7 kg
--- NOTE | 2017-06-12 10:23 | ED CARDIAC/CP/PALPITATIONS ---
History of Present Illness General Chief Complaint: Palpitations Stated Complaint: PALPITATIONS Source: patient, old records Exam Limitations: no limitations Vital Signs & Intake/Output Vital Signs & Intake/Output Vital Signs Date Time Temp Pulse Resp B/P B/P Pulse O2 O2 Flow FiO2 Mean Ox Delivery Rate 06/13 0800 98.5 70 16 126/70 06/13 0619 97.7 68 20 126/70 95 Room Air 06/13 0000 98.7 78 20 122/70 06/12 2206 98.7 78 20 122/70 96 Room Air 06/12 1539 99.5 78 20 122/84 94 Room Air 06/12 1418 96.4 75 18 126/75 98 Room Air Room Air ED Intake and Output 06/13 0000 06/12 1200 Intake Total 500 Output Total Balance 500 Intake, Oral 500 Patient 112.672 kg 113.398 kg Weight Weight Reported by Patient Measurement Method Allergies Coded Allergies: lactose ("SNIFFLES" 02/18/17) Reconcile Medications Acetaminophen/Diphenhydramine (Acetaminophen Pm Geltab) 500 MG-25 MG TABLET 1- 2 TAB PO PRN SLEEP/PAIN (Reported) Fluticasone Propionate 50 MCG/ACTUATION SPRAY.SUSP 1 SPRAY NASB QPM POST NASAL DRIP (Reported) Meclizine HCl 25 MG TABLET 1 TAB PO PRN VERTIGO (Reported) Melatonin (Unknown Strength) TABLET (Unknown Dose) PO PRN SLEEP (Reported) Multiple Vitamin (Multivitamins) 1 EACH TABLET 1 TAB PO DAILY SUPPLEMENT ( Reported) Sennosides (Senna) 8.6 MG TABLET 1 TAB PO PRN CONSTIPATION (Reported) Triage Note: PRESENTS TO ED COMPLAINING OF PALPITATIONS SINCE TUESDAY NIGHT, THEY HAVE BEEN INTERMITTENT AND ON HER RIGHT CHEST WALL SHE DESCRIBED. ALSO REPORTS A SHARP INTERMITENT FEELING ON HER RIGHT CHEST WALL UNDER HER CLAVICLE ALSO INTERMITTENTLY. EKG PERFORMED UPON ARRIVAL WHICH SHOWED NSR. DENIED NAUSEA OR VOMITING. Triage Nurses Notes Reviewed? yes HPI: 66F PMH asymptomatic severe aortic stenosis, chronic diastolic CHF, surgery 3 months ago for CAREY following SBO presenting with 3 days of palpitations. Palpitations occur usually at night when lying down, felt as rapid and pounding, causing a sense of dread in patient, and have continued nearly constantly since then. They are associated with point right chest pain that does not radiate. Denies fever, chills, headache, lightheadedness, dizziness, vision changes, sore throat, SOB, diaphoresis, abdominal pain, diarrhea, dysuria. Quit smoking 20 years ago, never had a stress test, no history of CAD, active with no chest pain or dyspnea on exertion. No change in dietary habits, EtOH intake, or caffeine intake. Past History Travel History Traveled to [place] past 21 day No Medical History Any Pertinent Medical History? 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 2008 Psychosocial History Who do you live with Sister What is your primary language Armenian Tobacco Use: Quit >30 days ago Family History Hx Contributory? No Review of Systems Review of Systems Constitutional: Reports: no symptoms. EENTM: Reports: no symptoms. Respiratory: Reports: no symptoms. Cardiovascular: Reports: no symptoms. GI: Reports: no symptoms. Genitourinary: Reports: no symptoms. Musculoskeletal: Reports: no symptoms. Skin: Reports: no symptoms. Neurological/Psychological: Reports: no symptoms. Hematologic/Endocrine: Reports: no symptoms. Immunologic/Allergic: Reports: no symptoms. All Other Systems: Reviewed and Negative Physical Exam Physical Exam General Appearance: well developed/nourished, no apparent distress Head: atraumatic, normal appearance Eyes: Bilateral: normal appearance. Ears, Nose, Throat: normal ENT inspection, hearing grossly normal Neck: normal inspection, supple, full range of motion Respiratory: left sided basilar crackles noted Cardiovascular: regular rate/rhythm, 3/6 systolic murmur best heard at right sternal border radiating to neck Gastrointestinal: soft, non-tender Back: normal inspection, normal range of motion Extremities: normal inspection Neurologic/Psych: awake, alert, oriented x 3, normal mood/affect Skin: intact, normal color, warm/dry Core Measures ACS in differential dx? No CVA/TIA Diagnosis No Sepsis Present: No Sepsis Focused Exam Completed? No Progress Differential Diagnosis: AMI, aortic dissection, atrial fibrillation, cholecystitis, CHF/pulm edema, costochondritis, hyperkalemia, hypovolemia, hyperthyroid, hyperventilation, intracranial hemorrhage, musculoskeletal pain, myocarditis, pancreatitis, pericarditis, pneumonia, pneumothorax, PSVT, pulmonary embolism, PUD/GERD, PVCs/PACs, respiratory failure, rib fracture, sepsis, unstable angina, V-fib/V-Tach, WPW syndrome Plan of Care: Orders Procedure Date/time Status Change service to 06/13 0722 Active MAGNESIUM 06/13 0600 Complete CBC WITHOUT DIFFERENTIAL 06/13 06 Complete BASIC ELECTROLYTES PLUS BUN&CR 06/13 0600 Complete TROPONIN LEVEL 06/13 0200 Complete EKG 06/13 0200 Active Discharge Patient 06/13 UNK Active Regular Diet 06/12 D Active Weight 06/12 2207 Active TROPONIN LEVEL 06/13 1999 Complete EKG 06/12 2000 Active Vital Signs 06/12 1506 Active Teach/Educate 06/12 1506 Active Pain Treatment and Response 06/12 1506 Active Nutritional Intake, Monitor 06/12 1506 Active Isolation 06/12 1506 Active Intake & Output 06/12 1506 Active Patient Care Conference 06/12 1506 Active Activity/Ambulation 06/12 1506 Active Pathway - chart 06/12 1417 Active House Staff 06/12 1417 Active TROPONIN LEVEL 06/12 1340 Complete EKG 06/12 1340 Active Intake & Output 06/12 1314 Active Patient Data 06/[address] in observation 06/12 1238 Active ED Holding Orders 06/12 1238 Active Vital Signs 06/12 1238 Active Code Status 06/12 1238 Active VTE Mechanical Prophylaxis 06/12 UNK Active CIWA 06/12 UNK Active Current Medications Sig/Nancy Start time Last Medication Dose Stop Time Status Admin Enoxaparin Sodium 40 MG DAILY 06/13 0900 AC 06/13 (Lovenox) 08 Multivitamins 1 TAB DAILY 06/13 0900 AC 06/13 Therapeutic 0833 (Theragran-M Vitamins Tabs) Fluticasone 1 SPRAY QPM 06/12 2100 AC 06/12 Propionate 2056 (Flonase) Melatonin 5 MG AT BEDTIME 06/12 2100 AC 06/12 (Melatonin) 2057 Senna 187 MG AT BEDTIME 06/12 2100 AC 06/12 (Senokot) 205 Acetaminophen 650 MG Q6P PRN 06/12 1415 AC (Tylenol) Laboratory Tests 06/13/17 0631: Anion Gap 10, Estimated GFR > 60, BUN/Creatinine Ratio 20.0, Magnesium 2.2, CBC w Diff NO MAN DIFF REQ, RBC 4.44, MCV 94.2, MCH 32.4 H, MCHC 34.4, RDW 16.0 H, MPV 8.4, Gran % 50.5, Lymphocytes % 34.7, Monocytes % 11.1 H, Eosinophils % 3.0 , Basophils % 0.7, Absolute Granulocytes 2.2, Absolute Lymphocytes 1.5, Absolute Monocytes 0.5, Absolute Eosinophils 0.1, Absolute Basophils 0 06/13/17 0235: Troponin I < 0.01 06/12/17 1949: Troponin I < 0.01 06/12/17 1400: Troponin I < 0.01 Diagnostic Imaging: Viewed by Me: Radiology Read. Discussed w/RAD: Radiology Read. Radiology Impression: PATIENT: ANTONELLA FAIRCHILD PRESENT AGE: 66 PATIENT ACCOUNT NO: [id number] : 49 LOCATION: [facility] ORDERING PHYSICIAN: Epi Awan MD SERVICE DATE: 06/12/17 EXAM TYPE : RAD - XRY-PORTABLE CHEST XRAY EXAMINATION: XR PORTABLE CHEST CLINICAL INFORMATION: Orthopnea. Bibasilar crackles. Evaluate for congestive heart failure. COMPARISON: 02/18/2017 TECHNIQUE: Portable frontal view of the chest was obtained. FINDINGS: The elevation of the right diaphragm is unchanged compared to 02/18/2017. The platelike atelectasis overlying the elevated diaphragm has essentially resolved. No acute pulmonary abnormality. No evidence of pulmonary edema, consolidation or pleural effusion. Cardiac silhouette remains normal in size and hilar contours are normal. The visualized bones are intact. IMPRESSION: No evidence of congestive heart failure. DICTATED BY: Parmjit Mclaughlin MD DATE/TIME DICTATED:06/12/171057 INSOLE PRESSER:MALIKA DATE/TIME TRANSCRIBED:06/12/171057 CONFIDENTIAL, DO NOT COPY WITHOUT APPROPRIATE AUTHORIZATION. <Electronically signed in Other Vendor System> SIGNED BY: Parmjit Mclaughlin MD 06/12/17 1103 Initial ED EKG: normal sinus rhythm, no ST T wave changes Departure Departure Disposition: STILL A PATIENT Condition: Stable Clinical Impression Primary Impression: Palpitations Secondary Impressions: Chest pain at rest, Severe aortic stenosis Referrals: Denys Marrero MD (PCP/Family) Departure Forms: Customer Survey General Discharge Information Observation Note Spoke With: Giles Aranda MD Physician Advisor Notified: TAYLOR STEPHEN,JENNIFER Roblero Place Patient In: Non-ED OBS Care Area Rationale for Observation: My rational for observation is as follows GIVEN SEVERE AORTIC STENOSIS AND NEW ONSET OF PROLONGED PALPITATIONS WITH RIGHT SIDED CHEST PAIN RADIATING TO THE LEFT, WILLBRING IN OBSERVATION TO MONITOR ON TELEMETRY, REPEAT ECHOCARDIOGRAM , SERIAL ENZYME AND TROPONIN, AND CARDIOLOGY CONSULT. IF WORKUP IS NEGATIVE CAN LIKELY BE DISCHARGED TOMORROW WITH OUTPATIENT CARDIOLOGY FOLLOW UP. Critical Care Note Critical Care Note Critical Care Time: 30-74 min
--- NOTE | 2017-06-12 11:03 | RADIOLOGY REPORT ---
EXAMINATION: XR PORTABLE CHEST CLINICAL INFORMATION: Orthopnea. Bibasilar crackles. Evaluate for congestive heart failure. COMPARISON: 02/18/2017 TECHNIQUE: Portable frontal view of the chest was obtained. FINDINGS: The elevation of the right diaphragm is unchanged compared to 02/18/2017. The platelike atelectasis overlying the elevated diaphragm has essentially resolved. No acute pulmonary abnormality. No evidence of pulmonary edema, consolidation or pleural effusion. Cardiac silhouette remains normal in size and hilar contours are normal. The visualized bones are intact. IMPRESSION: No evidence of congestive heart failure.
[2017-06-12 11:09] LABS: ABSOLUTE BASOPHIL COUNT 0 /CUMM (0.0-0.2); ABSOLUTE EOSINOPHIL COUNT 0.1 /CUMM (0.0-0.7); ABSOLUTE GRANULOCYTE CT 2.6 /CUMM (1.4-6.5); ABSOLUTE MONOCYTE COUNT 0.4 /CUMM (0.10-0.60); BASOPHIL % 0.3 % (0.0-2.0); EOSINOPHIL % 2.5 % (0-5); GRANULOCYTE % 62.2 % (42.2-75.2); HEMATOCRIT 44.8 % (37-47); MEAN CORPUSCULAR HGB 31.6 PG (27.0-31.0); MEAN CORPUSCULAR HGB CONC 33.6 G/DL (33.0-37.0); MEAN CORPUSCULAR VOLUME 94.1 FL (81.0-99.0); MEAN PLATELET VOLUME 7.9 FL (7.4-10.4); PLATELET COUNT 147 /CUMM (130-400); RBC DISTRIBUTION WIDTH 16.5 % (11.5-14.5); RED BLOOD CELL CT 4.77 /CUMM (4.20-5.40); WHITE BLOOD CELL COUNT 4.2 /CUMM (4.8-10.8)
--- NOTE | 2017-06-12 13:25 | History & Physical ---
Aurelio STEPHENBryce 06/12/17 3383: General Information and HPI History of Present Illness: 66-year-old woman with past medical history of severe aortic stenosis, stage I diastolic dysfunction, uterine cancer status post hysterectomy, gastric bypass, small bowel obstruction status post lysis of adhesions, and ITP seen for evaluation of intermittent palpitations with chest pain. Patient was previously admitted to [facility] from 02/19/17-03/01/17 for a recurrent small bowel obstruction for which she was taken to the OR for lysis of adhesions. Patient was uneventfully discharged home but reports that since this time she has had benign occasional palpitations. She reports that over the past 2 weeks the palpitations have been more frequent and since she has had severe intermittent pain just under her right collarbone that is characterized as sharp and brief. She admits to drinking 4 glasses of wine per day and leaves that this may have caused her palpitations to be worse but otherwise denies excessive caffeine use or smoking cigarettes. She called her visitor services specialist Dr. Maciel but could not get through. For persistence of her symptoms she came to the [facility] ED for evaluation. Presently she reports feeling well and states that she has persistence of her symptoms. She denies any central chest pain, palpitations, orthopnea, PND, or heartburn. Review of systems She otherwise denies any headache, fever, chills, blurred/double vision, shortness of breath, nausea, vomiting, diarrhea, constipation, urinary complaints. Objective Vital signs -Temperature: 98.7 -Heart rate: 75 -Respiratory rate: 18 -Systolic blood pressure: 147 -O2 sat: 97% on room air Physical exam -Gen.: Well-developed, obese elderly woman in no acute distress -HEENT: NCAT, PERRLA, EOMI, moist mucous membranes -Neck: Supple, no JVD/hepatojugular reflux, trachea midline, no accessory respiratory muscle use -Cardio: 4/6 systolic ejection murmur with normal S2, regular rate and rhythm -Pulmonary: Clear to auscultation bilaterally -Abdomen: Soft, nontender, nondistended, bowel sounds intact -Neuro: Awake and alert, cranial nerves II through XII grossly intact -Extremities: Normal pulses Labs/imaging/studies -CBC: The BB C4.2, hemoglobin 15.1, hematocrit 44.8, platelet 147 -BMP: Sodium 139, potassium 4.1, chloride 103, CO2 26, urea 17, creatinine 0.8, anion gap 10, glucose 102 -LFT: Within normal limits -Miscellaneous: Troponin I <0.01, TSHR 1.730 -CXR: No evidence of congestive heart failure -EKG 02/18/17 0918: Left axis deviation with poor R-wave progression, HR 79, MN 132, QTC 475 -EKG 06/12/17: Unchanged -Echocardiogram 02/24/17: LVEF 55% with stage I diastolic dysfunction and severe aortic stenosis, mean gradient 44 mmHg Assessment 66-year-old woman with multiple medical problems significant for obesity, excessive alcohol use, diastolic heart dysfunction, and severe aortic stenosis seen for evaluation of palpitations with right sided chest pain. Patient attributes her right subclavicular pain to her "[employer] business". She states that she is often reaching to the left side of her desk with her right hand in an awkward fashion pulling at a stubborn printer drawer and believes she may have drained her muscle in her chest wall. The site appears normal and is otherwise nontender to palpation. Her symptoms do suggest musculoskeletal etiology. Patient's palpitations may be due to an underlying arrhythmia such as A. fib however patient remains normal sinus rhythm on EKG and telemetry. Patient is to be observed on the telemetry floor for 23 hours to assess for any possible arrhythmia during these episodes. Patient's echocardiogram from February demonstrates severe aortic valve disease and does not need to be repeated unless the continuous improvement consultant recommends to do so. Serial troponin/EKG are to be obtained to rule out any acute coronary syndrome. Problem List -Chest pain, r/o ACS -Severe aortic stenosis, mean gradient 44 mmHg -Stage I Diastolic Dysfunction -History of Uterine CA s/p hysterectomy -Gastric bypass -History of small bowel obstruction s/p lysis of adhesions -Excessive alcohol use Plan -Place under observation on telemetry -Telemetry monitoring -CIWA -Continue home meds: fluticasone -Cardiology consult for palpitations / chest pain / Aortic stenosis -Serial Troponin / EKG until peak or three negative sets -No need for repeat echocardiogram -Pain control with acetaminophen -Heart Healthy Diet -DVT PPx with lovenox -FULL CODE Allergies/Medications Allergies: Coded Allergies: lactose ("SNIFFLES" 02/18/17) Home Med list Acetaminophen/Diphenhydramine (Acetaminophen Pm Geltab) 500 MG-25 MG TABLET 1- 2 TAB PO PRN SLEEP/PAIN (Reported) Fluticasone Propionate 50 MCG/ACTUATION SPRAY.SUSP 1 SPRAY NASB QPM POST NASAL DRIP (Reported) Meclizine HCl 25 MG TABLET 1 TAB PO PRN VERTIGO (Reported) Melatonin (Unknown Strength) TABLET (Unknown Dose) PO PRN SLEEP (Reported) Multiple Vitamin (Multivitamins) 1 EACH TABLET 1 TAB PO DAILY SUPPLEMENT ( Reported) Sennosides (Senna) 8.6 MG TABLET 1 TAB PO PRN CONSTIPATION (Reported) Past History Travel History Traveled to [place] past 21 day No Medical History Neurological: vertigo EENT: cataracts Cardiovascular: aortic stenosis Respiratory: NONE Gastrointestinal: GASTRIC BYPASS SBO Hepatic: NONE Renal: NONE Musculoskeletal: NONE Psychiatric: NONE Endocrine: obesity Blood Disorders: ITP Cancer(s): uterine ca sp hyst, RT 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 2008 Past Family/Social History Functional Ability Ambulation: independent Review of Systems Review of Systems Constitutional: Reports: see HPI. Exam & Diagnostic Data Last 24 Hrs of Vital Signs/I&O Vital Signs Date Time Temp Pulse Resp B/P B/P Pulse O2 O2 Flow FiO2 Mean Ox Delivery Rate 06/12 1418 96.4 75 18 126/75 98 Room Air Room Air 06/12 1020 97 Room Air Room Air 06/12 0937 98.5 75 18 147/90 97 Room Air Intake & Output 06/12 1600 06/12 0800 06/12 0000 Intake Total Output Total Balance Patient 113.398 kg Weight Weight Reported by Patient Measurement Method Assessment/Plan As Ranked By This Provider Problem List: 1. Palpitations Core Measures/Misc (10/31) Acute Coronary Syndrome ACS Diagnosis: No Congestive Heart Failure Congestive Heart Failure Diagnosis No Cerebrovascular Accident CVA/TIA Diagnosis: No VTE (View Protocol) VTE Risk Factors Age>40 No Mechanical VTE Prophylaxis d/t N/A MechProphylax Ordered No VTE Pharm Prophylaxis d/t NA PharmProphylax ordered Sepsis (View protocol) Sepsis Present: Monika Aranda MDGiles 06/12/17 1431: Attending MD Review Statement Attending Statement Attending MD Statement: examined this patient, discuss w/resident/PA/AIRLINE OPERATIONS AGENT, agreed w/resident/PA/AIRLINE OPERATIONS AGENT, reviewed EMR data (avail), discussed with nursing, amended to note Attending Assessment/Plan: Patient is a 66-year-old female with a history significant for gastric bypass surgery, small bowel obstruction status post adhesion lysis, ITP, stage I diastolic dysfunction and severe aortic stenosis. She presented to the emergency room with complaints of intermittent chest pain and intermittent palpitations. According to the patient the pain is located in the right chest wall just below the clavicle. It is pinpoint in location. She described as a sharp pain 1/10 ( One over Ten in severity) . She admits that this pain has been going on for several months. I inquired as to why she decided to come for evaluation today she reports that for the past 2 weeks she has had associated palpitations in the same location on the right side of the chest. She reports that these palpitations the longest duration for about 2 seconds (2secs). She reports that she briefly developed left shoulder discomfort worse with movement but does admit that this has resolved. She reports trying to get a hold of a visitor services specialist but was unable to and decided to come to the emergency room for evaluation. She arrived here afebrile hemodynamically stable. During my conversation with her she reported that right-sided chest discomfort did recur on several occasions lasting transiently and resolving. She did not be aborted about it. Apparently the case was discussed with the cardiology service operations supervisor chemical cleaning who recommended observing the patient overnight in the telemetry unit and evaluation by her cardiology service tomorrow morning. EKG done in the ER showed sinus rhythm with no ischemic changes. First troponin was negative. General appearance: Well-developed and not in any acute distress. HEENT: Anicteric, no pallor, pupils equal and reactive. Neck: Supple with no jugular venous distention. Heart: S1-S2 regular with 3/6 systolic murmur Lungs: Adequate and symmetric air entry bilaterally with no added sounds. Chest wall :reproducible tenderness just over the right mid clavicle. No erythema. No bruising. Normal range of motion of both shoulders. Abdomen: Nondistended with normal bowel sounds. Soft, nontender with no palpable masses. Extremities: No pedal edema. No cyanosis. Skin: Intact Problems: 1. Atypical chest pain 2. Palpitations 3. Severe aortic stenosis 4. Chronic heart failure with preserved ejection fraction. Plan: -Observe patient on the telemetry service. -Recommend pain control with Tylenol as needed. -Trend troponins. -Hold off echocardiogram unless otherwise requested by her cardiology service. -Repeat CBC and serum chemistry in a.m. if there is a change in her clinical status.
[2017-06-12] MEDS ORDERED: MECLIZINE HCL25 MG PO (13:43)
[2017-06-12] MEDS ORDERED: SENNA8.6 M3 PO (13:44)
[2017-06-12] MEDS ORDERED: ACETAMINOPHEN1 EAC1 PO (13:45)
[2017-06-12] MEDS ORDERED: MELATONIN3 M4 PO (13:45)
[2017-06-12] MEDS ORDERED: MULTIVITAMINS1 EAC9 PO (13:46)
[2017-06-12 15:39] VITALS: BP 122/84
--- NOTE | 2017-06-12 15:48 | Cons- Cardiology ---
General Information and HPI Consulting Request Date of Consult: 06/12/17 Requested By: Manoj STEPHEN,Giles Reason for Consult: Increasing palpitation Source of Information: patient Exam Limitations: no limitations History of Present Illness: The patient is a 66-year-old female who is followed by Riccardo Maciel MD. She is admitted to the hospital for further evaluation due to increasing palpitations. The patient is a 66-year-old female whose past medical history is remarkable for severe aortic stenosis with a mean gradient on recent echo 45 mmHg, uterine cancer status post hysterectomy, prior gastric bypass surgery, history of small bowel obstruction, and ITP. The patient reports that she has been having increasing frequency of brief intermittent palpitations over the last several days. Initially, I was informed that she was having associated shortness of breath but the patient denies any dyspnea to me at the present time. She has however been extremely concerned about the worsening frequency of the palpitations. They have interfered with her sleep. They do not seem to be exertional. She denies any other new exertional symptoms. The patient was in [facility] in February for recurrent small bowel obstruction. She went to the OR for adhesion lysis at that time. She was noted to have worsening aortic stenosis at that time. She feels that her symptoms have dated since that time but have been worsening in frequency and severity. she also notes episodes of pinpoint chest discomfort which are brief in nature and do not seem to be cardiac in origin. Allergies/Medications Allergies: Coded Allergies: lactose ("SNIFFLES" 02/18/17) Home Med List: Acetaminophen/Diphenhydramine (Acetaminophen Pm Geltab) 500 MG-25 MG TABLET 1- 2 TAB PO PRN SLEEP/PAIN (Reported) Fluticasone Propionate 50 MCG/ACTUATION SPRAY.SUSP 1 SPRAY NASB QPM POST NASAL DRIP (Reported) Meclizine HCl 25 MG TABLET 1 TAB PO PRN VERTIGO (Reported) Melatonin (Unknown Strength) TABLET (Unknown Dose) PO PRN SLEEP (Reported) Multiple Vitamin (Multivitamins) 1 EACH TABLET 1 TAB PO DAILY SUPPLEMENT ( Reported) Sennosides (Senna) 8.6 MG TABLET 1 TAB PO PRN CONSTIPATION (Reported) Current Medications: Current Medications Sig/Nancy Start time Last Medication Dose Route Stop Time Status Admin Acetaminophen 650 MG Q6P PRN 06/12 1415 AC PO Enoxaparin Sodium 40 MG DAILY 06/13 899 AC SC Fluticasone 1 SPRAY QPM 06/12 2099 AC Propionate BOSSMAN Melatonin 5 MG AT BEDTIME 06/12 2099 AC PO Multivitamins 1 TAB DAILY 06/13 899 AC Therapeutic PO Senna 187 MG AT BEDTIME 06/12 2099 AC PO Past History Travel History Traveled to [place] past 21 day No Medical History Blood Transfusion Hx: Yes Neurological: vertigo EENT: cataracts Cardiovascular: aortic stenosis Respiratory: NONE Gastrointestinal: GASTRIC BYPASS SBO Hepatic: NONE Renal: NONE Musculoskeletal: NONE Psychiatric: NONE Endocrine: obesity Blood Disorders: ITP Cancer(s): 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 2007 Psychosocial History Smoking Status: Former Smoker Functional Ability Ambulation: independent Exam & Diagnostic Data Vital Signs and I&O Vital Signs Date Time Temp Pulse Resp B/P B/P Pulse O2 O2 Flow FiO2 Mean Ox Delivery Rate 06/12 1539 99.5 78 20 122/84 94 Room Air 06/12 1418 96.4 75 18 126/75 98 Room Air Room Air 06/12 1020 97 Room Air Room Air 06/12 0937 98.5 75 18 147/90 97 Room Air Intake & Output 06/12 1600 06/12 0800 06/12 0000 06/11 1600 06/11 0800 06/11 0000 Intake Total Output Total Balance Patient 250 lb Weight Weight Reported by Patient Measurement Method Physical Exam: General Appearance: Well-developed, overweight, talkative white female, alert, awake, oriented Head: normal HEENT: Normal Neck: supple, JVP normal, carotid upstrokes normal bilaterally with soft bilateral transmitted murmurs, no masses or thyromegaly Respiratory: chest non-tender, clear to auscultation and percussion bilaterally Cardiovascular: regular rate/rhythm, normal S1, S2, 2-3/6 systolic ejection murmur Abdomen: normal bowel sounds, soft, non-tender Extremities: normal inspection, trace edema bilaterally Vascular: Pulses are 2+ and equal bilaterally Neurologic: Grossly normal/nonfocal Labs/Nicanor Results: Laboratory Tests 04/29 04/29 1400 1040 Chemistry Sodium (137 - 145 mmol/L) 139 Potassium (3.5 - 5.1 mmol/L) 4.1 Chloride (98 - 107 mmol/L) 103 Carbon Dioxide (22 - 30 mmol/L) 26 Anion Gap (5 - 16) 10 BUN (7 - 17 mg/dL) 17 Creatinine (0.5 - 1.0 mg/dL) 0.8 Estimated GFR (>60 ml/min) > 60 BUN/Creatinine Ratio (7 - 25 %) 21.3 Glucose (65 - 99 mg/dL) 102 H Calcium (8.4 - 10.2 mg/dL) 8.9 Magnesium (1.6 - 2.3 mg/dL) 2.2 Total Bilirubin (0.2 - 1.3 mg/dL) 0.8 AST (14 - 36 U/L) 25 ALT (9 - 52 U/L) 25 Alkaline Phosphatase (<127 U/L) 61 Troponin I (< 0.11 ng/ml) < 0.01 < 0.01 Total Protein (6.3 - 8.2 g/dL) 6.3 Albumin (3.5 - 5.0 g/dL) 3.7 Globulin (1.9 - 4.2 gm/dL) 2.6 Albumin/Globulin Ratio (1.1 - 2.2 %) 1.4 TSH (0.270 - 4.200 uIU/mL) 1.730 Hematology CBC w Diff NO MAN DIFF REQ WBC (4.8 - 10.8 /CUMM) 4.2 L RBC (4.20 - 5.40 /CUMM) 4.77 Hgb (12.0 - 16.0 G/DL) 15.1 Hct (37 - 47 %) 44.8 MCV (81.0 - 99.0 FL) 94.1 MCH (27.0 - 31.0 PG) 31.6 H MCHC (33.0 - 37.0 G/DL) 33.6 RDW (11.5 - 14.5 %) 16.5 H Plt Count (130 - 400 /CUMM) 147 MPV (7.4 - 10.4 FL) 7.9 Gran % (42.2 - 75.2 %) 62.2 Lymphocytes % (20.5 - 51.1 %) 24.7 Monocytes % (1.7 - 9.3 %) 10.3 H Eosinophils % (0 - 5 %) 2.5 Basophils % (0.0 - 2.0 %) 0.3 Absolute Granulocytes (1.4 - 6.5 /CUMM) 2.6 Absolute Lymphocytes (1.2 - 3.4 /CUMM) 1.0 L Absolute Monocytes (0.10 - 0.60 /CUMM) 0.4 Absolute Eosinophils (0.0 - 0.7 /CUMM) 0.1 Absolute Basophils (0.0 - 0.2 /CUMM) 0 Diagnostic Data EKG Results Sinus rhythm, unchanged CXR Results FINDINGS: The elevation of the right diaphragm is unchanged compared to 02/18/2017. The platelike atelectasis overlying the elevated diaphragm has essentially resolved. No acute pulmonary abnormality. No evidence of pulmonary edema, consolidation or pleural effusion. Cardiac silhouette remains normal in size and hilar contours are normal. The visualized bones are intact. IMPRESSION: No evidence of congestive heart failure. Assessment/Plan Assessment/Plan Assessment: 1. Worsening palpitations 2. Atypical chest discomfort 3. Severe aortic stenosis 4. History of gastric bypass surgery 5. History of uterine cancer Recommendations: -1 North telemetry monitoring -Full labs as ordered. -serial troponins -Obtain outside records tomorrow for review and consider follow-up echocardiogram if indicated. -Further plans in the morning Consult Acknowledgment - Thank you for your consult request.
[2017-06-12 22:06] VITALS: BP 122/70
[2017-06-13] VITALS: BP 122/70
[2017-06-13 06:19] VITALS: BP 126/70
[2017-06-13 08:00] VITALS: BP 126/70
--- NOTE | 2017-06-13 08:16 | PN- Housestaff ---
Soraya STEPHEN,Justin 06/13/17 0816: Subjective Follow-up For: chest pain palpitations Tele-Events Since Last Visit: sinus rhythm, no events Subjective: patient has very intermittent sharp brief pangs of right sided chest pain had some episodes of palpitations overnight but no events on telemetry currently no complaints other than poor sleep feeling tired Review of Systems Constitutional: Reports: see HPI. Objective Last 24 Hrs of Vital Signs/I&O Vital Signs Date Time Temp Pulse Resp B/P B/P Pulse O2 O2 Flow FiO2 Mean Ox Delivery Rate 06/13 0800 98.5 70 16 126/70 06/13 0619 97.7 68 20 126/70 95 Room Air 06/13 0000 98.7 78 20 122/70 06/12 2206 98.7 78 20 122/70 96 Room Air 06/12 1539 99.5 78 20 122/84 94 Room Air 06/12 1418 96.4 75 18 126/75 98 Room Air Room Air Intake & Output 06/13 1600 06/13 0800 06/13 0000 Intake Total 120 500 Output Total Balance 120 500 Intake, Oral 120 500 Patient 112.672 kg Weight Physical Exam General Appearance: Alert, Oriented X3, Cooperative, No Acute Distress Cardiovascular: Regular Rate, Normal S1, Normal S2, 2/6 systolic murmur Lungs: Clear to Auscultation, Normal Air Movement Abdomen: Normal Bowel Sounds, Soft, No Tenderness, No Masses Extremities: No Clubbing, No Cyanosis, No Edema, Normal Pulses Current Medications: Current Medications Sig/Nancy Start time Last Medication Dose Route Stop Time Status Admin Acetaminophen 650 MG Q6P PRN 06/12 1415 DCD PO Enoxaparin Sodium 40 MG DAILY 06/13 899 DCD 06/13 SC 0833 Fluticasone 1 SPRAY QPM 06/12 2099 DCD 06/12 Propionate BOSSMAN 2056 Melatonin 5 MG AT BEDTIME 06/12 2099 DCD 06/12 PO 2056 Multivitamins 1 TAB DAILY 06/13 899 DCD 06/13 Therapeutic PO 08 Ramelteon 8 MG ONCE ONE 06/13 0200 DC 06/13 PO 06/13 200 020 Senna 187 MG AT BEDTIME 06/12 2099 DCD 06/12 PO 2056 Last 24 Hrs of Lab/Nicanor Results Last 24 Hrs of Labs/Mics: Laboratory Tests 06/13/17 0631: Anion Gap 10, Estimated GFR > 60, BUN/Creatinine Ratio 20.0, Magnesium 2.2, CBC w Diff NO MAN DIFF REQ, RBC 4.44, MCV 94.2, MCH 32.4 H, MCHC 34.4, RDW 16.0 H, MPV 8.4, Gran % 50.5, Lymphocytes % 34.7, Monocytes % 11.1 H, Eosinophils % 3.0 , Basophils % 0.7, Absolute Granulocytes 2.2, Absolute Lymphocytes 1.5, Absolute Monocytes 0.5, Absolute Eosinophils 0.1, Absolute Basophils 0 06/13/17 0235: Troponin I < 0.01 06/12/17 1949: Troponin I < 0.01 06/12/17 1400: Troponin I < 0.01 Assessment/Plan Assessment: 66 year old female with PMH of gastric bypass, and MIGUEL for malignancy with SBO likely from adhesion in 02/2017, severe aortic stenosis although asymptomatic patient does have reported episodes of vertigo in the past, presented with complaints of chest pain and palpitations Chest pain: Serial troponins and EKGs negative for myocardial ischemia Patient does have severe aortic stenosis Cardiology consultation Outpatient follow up for Patient did report palpitations without events on the monitor but nonetheless may benefit from prolonged ambulatory Holter monitoring as an outpatient for arrhythmia evaluation Heart healthy diet DVT [id number] Full code Stable for discharge from observation with outpatient cardiology follow up Problem List: 1. Palpitations 2. Chest pain at rest 3. Severe aortic stenosis Pain Ratin Pain Location: n/a Pain Goal: Pain 4 or less Pain Plan: prn Tomorrow's Labs & Rationales: none, discharge Epi Awan MD 06/13/17 1008: Attending MD Review Statement Attending Statement Attending MD Statement: examined this patient, discuss w/resident/PA/FURNITURE REPRODUCER, agreed w/resident/PA/FURNITURE REPRODUCER, reviewed EMR data (avail) Attending Assessment/Plan: 66F PMH asymptomatic severe aortic stenosis, chronic diastolic CHF, surgery 3 months ago for CAREY following SBO presenting with 3 days of palpitations. Palpitations occur usually at night when lying down, felt as rapid and pounding, causing a sense of dread in patient, and have continued nearly constantly since then. They are associated with point right chest pain that does not radiate. Denies fever, chills, headache, lightheadedness, dizziness, vision changes, sore throat, SOB, diaphoresis, abdominal pain, diarrhea, dysuria. Quit smoking 20 years ago, never had a stress test, no history of CAD, active with no chest pain or dyspnea on exertion. No change in dietary habits, EtOH intake, or caffeine intake. Asymptomatic overnight, no telemetry events. 1. Palpitations 2. Chest pain at rest 3. Severe aortic stenosis Plan - Will likely discharge today pending cardiology evaluation - Will require outpatient cardiac monitoring, can be set up as outpatient - Continue home medications
[2017-06-13 08:22] LABS: ABSOLUTE BASOPHIL COUNT 0 /CUMM (0.0-0.2); ABSOLUTE EOSINOPHIL COUNT 0.1 /CUMM (0.0-0.7); ABSOLUTE GRANULOCYTE CT 2.2 /CUMM (1.4-6.5); ABSOLUTE LYMPH COUNT 1.5 /CUMM (1.2-3.4); ABSOLUTE MONOCYTE COUNT 0.5 /CUMM (0.10-0.60); BASOPHIL % 0.7 % (0.0-2.0); GRANULOCYTE % 50.5 % (42.2-75.2); HEMATOCRIT 41.8 % (37-47); MEAN CORPUSCULAR HGB 32.4 PG (27.0-31.0); MEAN CORPUSCULAR HGB CONC 34.4 G/DL (33.0-37.0); MEAN CORPUSCULAR VOLUME 94.2 FL (81.0-99.0); MEAN PLATELET VOLUME 8.4 FL (7.4-10.4); PLATELET COUNT 137 /CUMM (130-400); RED BLOOD CELL CT 4.44 /CUMM (4.20-5.40); WHITE BLOOD CELL COUNT 4.3 /CUMM (4.8-10.8)
--- NOTE | 2017-06-13 09:19 | Patient Discharge Instructions ---
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 Christy, as an outpatient. Acute Coronary Syndrome Inclusion Criteria At DC or during hospital stay patient has or had the following: ACS DIAGNOSIS No Discharge Core Measures Meds if any: Prescribed or Continued at Discharge Meds if any: NOT Prescribed or Continued at Discharge Congestive Heart Failure Inclusion Criteria At DC or during hospital stay patient has or had the following: CHF DIAGNOSIS No Discharge Core Measures Meds if any: Prescribed or Continued at Discharge Meds if any: NOT Prescribed or Continued at Discharge Cerebrovascular accident Inclusion Criteria At DC or during hospital stay patient has or had the following: CVA/TIA Diagnosis No Discharge Core Measures Meds if any: Prescribed or Continued at Discharge Meds if any: NOT Prescribed or Continued at Discharge Venous thromboembolism Inclusion Criteria VTE Diagnosis No VTE Type NONE VTE Confirmed by (Test) NONE Discharge Core Measures - Per Current guidelines, there needs to be overlap - treatment for the first 5 days of Warfarin therapy. - If discharged on Warfarin prior to 5 days of - overlap therapy, the patient will need to be - assessed for post discharge needs including - *Post discharge parental anticoagulation - *Warfarin and/or parental anticoagulation education - *Follow up date to check INR post discharge At least 5 days overlap therapy as Inpatient No Meds if any: Prescribed or Continued at Discharge Note: Overlap Therapy is Warfarin and Anticoagulant Meds if any: NOT Prescribed or Continued at Discharge
--- NOTE | 2017-06-13 11:18 | PN- Cardiology ---
Subjective Subjective: Patient feels quite well today. Reports minimal palpitations. Has some mild pain in her right shoulder with movement only. Objective Vital Signs and I&Os Vital Signs Date Time Temp Pulse Resp B/P B/P Pulse O2 O2 Flow FiO2 Mean Ox Delivery Rate 06/13 08 98.5 70 16 126/70 06/13 0619 97.7 68 20 126/70 95 Room Air 06/13 0000 98.7 78 20 122/70 06/12 2206 98.7 78 20 122/70 96 Room Air 06/12 1539 99.5 78 20 122/84 94 Room Air 06/12 1418 96.4 75 18 126/75 98 Room Air Room Air Intake & Output 06/13 1600 06/13 0800 06/13 0000 06/12 1600 06/12 0000 Intake Total 120 500 Output Total Balance 120 500 Intake, Oral 120 500 Patient 248 lb 250 lb Weight Weight Reported by Patient Measurement Method Physical Exam: General: no apparent distress. Alert. Eyes: No obvious scleral icterus. HEENT: No jugular venous distention or abnormal jugular venous pulsations. Cardiovascular: Normal intensity S1/S2. 2 out of 6 systolic murmur Respiratory: Lungs clear to auscultation bilaterally. Abdomen: Soft, nontender with no guarding or rebound tenderness. Musculoskeletal: No clubbing or cyanosis noted Skin: warm Neurologic: No gross focal deficits noted. Current Medications: Current Medications Sig/Nancy Start time Last Medication Dose Route Stop Time Status Admin Acetaminophen 650 MG Q6P PRN 06/12 1415 AC PO Enoxaparin Sodium 40 MG DAILY 06/13 09 AC 06/13 SC 0833 Fluticasone 1 SPRAY QPM 06/12 2099 AC 06/12 Propionate BOSSMAN 2056 Melatonin 5 MG AT BEDTIME 06/12 2099 AC 06/12 PO 2056 Multivitamins 1 TAB DAILY 06/13 0900 AC 06/13 Therapeutic PO 0833 Ramelteon 8 MG ONCE ONE 06/13 0200 DC 06/13 PO 06/13 020 020 Senna 187 MG AT BEDTIME 06/12 2099 AC 06/12 PO 2056 Results Last 48 Hrs of Labs/Mics: Laboratory Tests 06/13/17 0631: Anion Gap 10, Estimated GFR > 60, BUN/Creatinine Ratio 20.0, Magnesium 2.2, CBC w Diff NO MAN DIFF REQ, RBC 4.44, MCV 94.2, MCH 32.4 H, MCHC 34.4, RDW 16.0 H, MPV 8.4, Gran % 50.5, Lymphocytes % 34.7, Monocytes % 11.1 H, Eosinophils % 3.0 , Basophils % 0.7, Absolute Granulocytes 2.2, Absolute Lymphocytes 1.5, Absolute Monocytes 0.5, Absolute Eosinophils 0.1, Absolute Basophils 0 06/13/17 0235: Troponin I < 0.01 06/12/17 1949: Troponin I < 0.01 06/12/17 1400: Troponin I < 0.01 06/12/17 1040: Anion Gap 10, Estimated GFR > 60, BUN/Creatinine Ratio 21.3, Glucose 102 H, Calcium 8.9, Magnesium 2.2, Total Bilirubin 0.8, AST 25, ALT 25, Alkaline Phosphatase 61, Troponin I < 0.01, Total Protein 6.3, Albumin 3.7, Globulin 2.6, Albumin/Globulin Ratio 1.4, TSH 1.730, CBC w Diff NO MAN DIFF REQ, RBC 4.77, MCV 94.1, MCH 31.6 H, MCHC 33.6, RDW 16.5 H, MPV 7.9, Gran % 62.2, Lymphocytes % 24.7, Monocytes % 10.3 H, Eosinophils % 2.5, Basophils % 0.3, Absolute Granulocytes 2.6, Absolute Lymphocytes 1.0 L, Absolute Monocytes 0.4, Absolute Eosinophils 0.1, Absolute Basophils 0 Recent Imaging Studies: Telemetry tracings were personally reviewed and show sinus rhythm with rare APCs Assessment/Plan Assessment/Plan 1. Low-level palpitations improved 2. History of known asymptomatic severe aortic stenosis 3. History of multiple prior abdominal surgeries 4. Status post prior open lysis of adhesions 5. Reproducible right shoulder pain with movement Patient remains hemodynamically stable with no significant arrhythmias noted on telemetry. No evidence of acute coronary syndrome or to compensated heart failure. She will continue to follow her known aortic stenosis closely with me in my office. Please call if any additional questions or concerns. Arnel Maciel MD [facility] Continue telemetry? No
== END 2017-06-13 11:00 ==
LOC: ERH 09:27 → 1NO 12:38 → ERHI 12:38 → ENTRNSPT 14:21 → EDTRNSPTSTS 14:40 → 1NO 14:56 → CMPTRNSPT 15:07 → 1NO 06-13 07:23 → ENPENDDIS 06-13 10:30 → 1NO 06-13 11:00
PROVIDERS: Internal Medicine; Internal Medicine Interventional Cardiology
DX: R07.89 Other chest pain (principal); R00.2 Palpitations; I35.0 Nonrheumatic aortic (valve) stenosis; Z85.42 Personal history of malignant neoplasm of other parts of uterus; E66.9 Obesity, unspecified; Z72.89 Other problems related to lifestyle; R42 Dizziness and giddiness; I50.32 Chronic diastolic (congestive) heart failure; Z87.891 Personal history of nicotine dependence
CPT/HCPCS: 6020; 36415; 71045; 82436; 93005; 93010; 99291; G0378; J1650

== ENCOUNTER 2017-09-27 11:43 | Emergency (ER) | payer OTHER ==
[~2017-09-27] VITALS: Ht 177.8 cm; Wt 110.4 kg
[~2017-09-27 11:43] MED LIST changes: +ACETAMINOPHEN1 EAC1 PO; +MECLIZINE HCL25 MG PO; +MELATONIN3 M4 PO; +MULTIVITAMINS1 EAC9 PO; +SENNA8.6 M3 PO
--- NOTE | 2017-09-27 12:36 | RADIOLOGY REPORT ---
EXAMINATION: XR CHEST CLINICAL INFORMATION: Shortness of breath. Chest pain. COMPARISON: Chest x-ray dated 06/12/2017 and 02/18/2017. TECHNIQUE: 2 views of the chest were obtained on 3 images. FINDINGS: The cardiomediastinal silhouette is within normal limits in size. There is asymmetric elevation of the right hemidiaphragm again seen. Minimal linear atelectatic changes are noted in the lung bases bilaterally. No focal consolidation, effusion or pneumothorax is seen. There is a minimal S-shaped thoracic curvature of the spine and mild multilevel vertebral spurring is seen. IMPRESSION: Unchanged appearance of the chest with chronic elevation of right hemidiaphragm and minimal bibasilar subsegmental atelectasis.
[2017-09-27 12:47] LABS: ABSOLUTE BASOPHIL COUNT 0 /CUMM (0.0-0.2); ABSOLUTE EOSINOPHIL COUNT 0.1 /CUMM (0.0-0.7); ABSOLUTE GRANULOCYTE CT 6.7 /CUMM (1.4-6.5); ABSOLUTE LYMPH COUNT 1.2 /CUMM (1.2-3.4); ABSOLUTE MONOCYTE COUNT 0.7 /CUMM (0.10-0.60); BASOPHIL % 0.4 % (0.0-2.0); EOSINOPHIL % 1.1 % (0-5); HEMATOCRIT 45.9 % (37-47); MEAN CORPUSCULAR HGB 32.1 PG (27.0-31.0); MEAN CORPUSCULAR HGB CONC 33.7 G/DL (33.0-37.0); MEAN CORPUSCULAR VOLUME 95.3 FL (81.0-99.0); MEAN PLATELET VOLUME 8.3 FL (7.4-10.4); PLATELET COUNT 174 /CUMM (130-400); RBC DISTRIBUTION WIDTH 14.3 % (11.5-14.5); RED BLOOD CELL CT 4.82 /CUMM (4.20-5.40); WHITE BLOOD CELL COUNT 8.7 /CUMM (4.8-10.8)
[2017-09-27 12:55] LABS: GRANULOCYTE % 76.6 % (42.2-75.2)
--- NOTE | 2017-09-27 14:13 | ED DYSPNEA/ASTHMA COMPLAINT ---
History of Present Illness General Chief Complaint: Dyspnea (COPD, CHF, Other) Stated Complaint: SOB/CHEST TIGHTNESS Vital Signs & Intake/Output Vital Signs & Intake/Output Vital Signs Date Time Temp Pulse Resp B/P B/P Pulse O2 O2 Flow FiO2 Mean Ox Delivery Rate 09/27 1644 98.6 98 18 122/76 93 Room Air 09/27 1413 106 20 130/75 95 Room Air 09/27 1158 97.7 117 20 112/80 97 Room Air Allergies Coded Allergies: lactose ("SNIFFLES" 02/18/17) Triage Note: PT TO ED C/O SOB AND CHEST TIGHTNESS SINCE YESTERDAY. RA SATS 97%, NO OBVIOUS RESP DISTRESS NOTED. Triage Nurses Notes Reviewed? yes HPI: 66 year old female with PMH of aortic stenosis, vertigo, GERD, divericulitis presenting to the ED with two day history of dyspnea on exertion. Tuesday morning the patient had some "heartburn" type pain in her epigastrium, resolved after drinking a glass of water. However, she noticed SOB upon walking 50 feet from her door to get a package, which she had been normal the night before. Since then, the patient denied any further pain--no pain or numbness in the jaw, no pain or numbness/tingling in the arms. She continues to report shortness of breath with exertion, however. Denies palpitations, but endorses ~3 weeks of night sweats. Denied nausea, vomiting, abdominal pain or diarrhea, other ROS negative. 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 2008 Psychosocial History Who do you live with Sister What is your primary language Malawian Tobacco Use: Quit >30 days ago ETOH Use: denies use Illicit Drug Use: denies illicit drug use (Sanjay STEPHEN,Saúl) Medical History Any Pertinent Medical History? see below for history Family History Hx Contributory? No (Fabio Arriaga MD) Review of Systems Review of Systems Constitutional: Denies: chills, diaphoresis, fever, malaise. Respiratory: Reports: cough, short of breath. Denies: orthopnea, sputum production. Cardiovascular: Denies: chest pain, edema, palpitations. GI: Denies: abdominal pain, bloating, constipation, diarrhea, nausea, vomiting. (Saúl Grace MD) Review of Systems EENTM: Reports: no symptoms. Genitourinary: Reports: no symptoms. Musculoskeletal: Reports: no symptoms. Skin: Reports: no symptoms. Neurological/Psychological: Reports: no symptoms. Hematologic/Endocrine: Reports: no symptoms. Immunologic/Allergic: Reports: no symptoms. All Other Systems: Reviewed and Negative (Corina STEPHEN,Fabio Roblero) Physical Exam Physical Exam General Appearance: well developed/nourished, no apparent distress, alert, awake Respiratory: normal breath sounds, chest non-tender, no respiratory distress Core Measures ACS in differential dx? Yes (Saúl Grace MD) Physical Exam Head: atraumatic Eyes: Bilateral: PERRL, EOMI. Ears, Nose, Throat: normal pharynx, normal ENT inspection Neck: normal inspection, supple, full range of motion, NO JVD Cardiovascular: normal peripheral pulses, tachycardia Gastrointestinal: normal bowel sounds, soft, non-tender Extremities: normal inspection, normal capillary refill, normal range of motion Neurologic/Psych: no motor/sensory deficits, awake, alert, oriented x 3, normal gait Skin: intact, normal color, warm/dry Lymphatic: no anterior cervical chandler Core Measures CVA/TIA Diagnosis No Sepsis Present: No Sepsis Focused Exam Completed? No (Fabio Arriaga MD) Progress Plan of Care: Orders Procedure Date/time Status Heart Healthy Diet 09/28 B Active LIPID PANEL 09/28 06 Active CBC WITHOUT DIFFERENTIAL 09/28 0600 Active BASIC ELECTROLYTES PLUS BUN&CR 09/28 0600 Active TROPONIN LEVEL 09/28 0000 Active EKG 09/28 0000 Active Nothing by Mouth 09/27 L Complete Heart Healthy Diet 09/27 D Complete TROPONIN LEVEL 09/27 1800 Active EKG 09/27 1800 Active ECHOCARDIOGRAM 09/27 1702 Active Add-on Test (ER Only) 09/27 1636 Active LACTIC ACID 09/27 1634 Active Pathway - chart 09/27 1616 Active ED Holding Orders 09/27 1530 Active Vital Signs 09/27 1530 Active Code Status 09/27 1530 Active Patient Data 09/27 1517 Active CTA CHEST-PULMONARY EMBOLISM 09/27 1454 Active Intake & Output 09/27 1351 Active PARTIAL THROMBOPLASTIN TIME 09/27 1240 Active PROTHROMBIN TIME 09/27 1240 Active DIRECT BILIRUBIN 09/27 1240 Complete TROPONIN LEVEL 09/27 1159 Complete COMPREHENSIVE METABOLIC PANEL 09/27 1159 Complete CBC WITHOUT DIFFERENTIAL 09/27 1159 Complete EKG 09/27 1145 Active US-LIMITED ABDOMEN 09/27 UNK Active TRC EVALUATION (GEN) 09/27 UNK Active OXYGEN SETUP (GEN) 09/27 UNK Active Pathway - chart 09/27 UNK Active House Staff 09/27 UNK Active ACS Core Measures 09/27 UNK Active Lab Add-on Test 09/27 UNK Active Weight 09/27 UNK Active VTE Mechanical Prophylaxis 09/27 UNK Active Vital Signs 09/27 UNK Active Intake & Output 09/27 UNK Active Hemoccult 09/27 UNK Active Activity/Ambulation 09/27 UNK Active CASE MANAGEMENT CONSULT 09/27 UNK Active Laboratory Tests 09/27/17 1634: APTT Cancelled 09/27/17 1633: PT Cancelled, INR Cancelled 09/27/17 1500: Troponin I Cancelled 09/27/17 1240: Anion Gap 16, Estimated GFR 55 L, BUN/Creatinine Ratio 18.0, Glucose 184 H, Calcium 9.3, Total Bilirubin 2.3 H, Direct Bilirubin 0.6 H, AST 61 H, ALT 37, Alkaline Phosphatase 105, Troponin I 0.14 *H, Total Protein 7.0, Albumin 4.0, Globulin 3.0, Albumin/Globulin Ratio 1.3, PT Pending, INR Pending, APTT Pending, CBC w Diff NO MAN DIFF REQ, RBC 4.82, MCV 95.3, MCH 32.1 H, MCHC 33.7, RDW 14.3 , MPV 8.3, Gran % 76.6 H, Lymphocytes % 13.5 L, Monocytes % 8.4, Eosinophils % 1.1, Basophils % 0.4, Absolute Granulocytes 6.7 H, Absolute Lymphocytes 1.2, Absolute Monocytes 0.7 H, Absolute Eosinophils 0.1, Absolute Basophils 0 (Sanjay STEPHEN,Saúl) Differential Diagnosis: AMI, CHF, COPD, pulmonary embolism, pneumonia Diagnostic Imaging: Viewed by Me: Radiology Read, CT Scan. Discussed w/RAD: Radiology Read, CT Scan. CXR Impression: PATIENT: ANTONELLA FAIRCHILD PRESENT AGE: 66 PATIENT ACCOUNT NO: [id number] : 49 LOCATION: ER ORDERING PHYSICIAN: Kemar SHOEMAKER SERVICE DATE: 09/27/17 EXAM TYPE: RAD - XRY-CHEST XRAY, TWO VIEWS EXAMINATION: XR CHEST CLINICAL INFORMATION: Shortness of breath. Chest pain. COMPARISON: Chest x-ray dated 06/12/2017 and 02/18/2017. TECHNIQUE: 2 views of the chest were obtained on 3 images. FINDINGS: The cardiomediastinal silhouette is within normal limits in size. There is asymmetric elevation of the right hemidiaphragm again seen. Minimal linear atelectatic changes are noted in the lung bases bilaterally. No focal consolidation, effusion or pneumothorax is seen. There is a minimal S-shaped thoracic curvature of the spine and mild multilevel vertebral spurring is seen. IMPRESSION: Unchanged appearance of the chest with chronic elevation of right hemidiaphragm and minimal bibasilar subsegmental atelectasis. DICTATED BY: Tanvi Bashir MD DATE/TIME DICTATED:1230 PEDICAB DRIVER:MALIKA DATE/TIME TRANSCRIBED:09/27/171230 CONFIDENTIAL, DO NOT COPY WITHOUT APPROPRIATE AUTHORIZATION. <Electronically signed in Other Vendor System> SIGNED BY: Tanvi Bashir MD 09/27/171235 Initial ED EKG: SINUS TACHYCARDIA WITH s1 qt 3 Rhythm Strip: sinus tachycardia Comments: ECHO FROM THE OFFICE: EF 45%,SEVERE AORTIC STENOSIS WITH A VALVE AREA OF 7. A CAT scan shows a saddle embolus with significant clot burden and right heart strain. Patient are has aortic stenosis. At this point patient would be better served going to [facility] for interventional radiology to relieve the clot burden. The patient has been accepted to the medical ICU at [facility]. Patient has consented to the transfer. (Fabio Arriaga MD) Departure Departure Condition: Stable Referrals: Denys Marrero MD (PCP/Family) Departure Forms: Customer Survey General Discharge Information (Saúl Grace MD) Departure Disposition: OTHER [facility] (ACUTE) Clinical Impression Primary Impression: ACS (acute coronary syndrome) Admission Note Spoke With: Judy Lopez MD Documentation of Exam: Documentation of any treatments & extenuating circumstances including Concerns Regarding Discharge (functional status, medication knowledge or non-compliance, living conditions, etc.) that warrant an admission rather than observation: [ Telemetry monitoring, serial enzymes, cardiology consultation, follow-up CT angiogram of to evaluate for potential PE. If the PE is positive we'll start heparin if not will wait to see if she develops any more pain.] Resident Co-Sign Statement Statement: ED Attending supervision documentation- [X] I saw and evaluated the patient. I have also reviewed all the pertinent lab results and diagnostic results. I agree with the findings and the plan of care as documented in the Resident's documentation. [X] I have reviewed the ED Record and agree with the Resident's documentation. [] Additions or exceptions (if any) to the Resident's note and plan are summarized below: [] (Fabio Arriaga MD) Critical Care Note Critical Care Note Critical Care Time: non-applicable (Saúl Grace MD) Statement: ED Attending supervision documentation- [X] I saw and evaluated the patient. I have also reviewed all the pertinent lab results and diagnostic results. I agree with the findings and the plan of care as documented in the Resident's documentation. [X] I have reviewed the ED Record and agree with the Resident's documentation. [] Additions or exceptions (if any) to the Resident's note and plan are summarized below: [] (Fabio Arriaga MD) Critical Care Note Critical Care Note Critical Care Time: non-applicable (Saúl Grace MD)
--- NOTE | 2017-09-27 15:22 | History & Physical ---
Cliff Blue 09/27/17 1522: General Information and HPI MD Statement: I have seen and personally examined ANTONELLA FAIRCHILD and documented this H&P. The patient is a 66 year old F who presented with a patient stated chief complaint of acute onset of dyspnea Source of Information: patient Exam Limitations: no limitations History of Present Illness: Ms Fairchild is a 66 year old woman w/ a PMHx of severe with a mean gradient on recent echo 45 mmHg, AV area around 0.7 , uterine cancer status post hysterectomy, prior gastric bypass surgery, history of small bowel obstruction, came to the hospital with a chief concern of acute onset of dyspnea on exertion. She was known to be in her usual state of health until 1 days ago, when she noticed to have heartburn-like symptoms, which resolved after drinking glass of water. 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 No orthopnea or PND. No chest pain at rest or on exertion, but reported chest tightness x 1 day which resolved upon itself. Reported to have had palpitations, and occasional diaphoresis. No nausea or vomiting. No diarrhea. No loss of consciousness, lightheadedness or dizziness. No pedal edema. Past smoker 20 pk yr smoking. No recent immobility, but has been less active in the last two weeks after she had a mechanical fall, and has been relatively active doing her daily chores at work. 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 2008 Past Family/Social History Psychosocial History ETOH Use: denies use Illicit Drug Use: denies illicit drug use Functional Ability Ambulation: independent Assessment/Plan Assessment: Ms Fairchild is a 66 year old woman w/ a PMHx of severe with a mean gradient on recent echo 45 mmHg, uterine cancer status post hysterectomy, prior gastric bypass surgery, history of small bowel obstruction, came to the hospital with a chief concern of dyspnea on exertion. At the time of admission-temperature 97.7, pulse rate 117-->106, respiration 20, blood pressure 112/80, 97% on room air. EKG reveals NSR, s1q3t3 Pertinent lab finding: WBC 8.7, hemoglobin 15.4, platelet count 174. Sodium 135, potassium 4.6, bicarbonate 19 (mild acidosis) Anion gap 16, BUN 18, creatinine 1.0. Glucose 184 Liver chemistries-AST 61, ALT 37, alkaline phosphatase 105, total bilirubin 2.3 Troponin I 0.14-->.. CXR - Unchanged appearance of the chest with chronic elevation of right hemidiaphragm and minimal bibasilar subsegmental atelectasis. CTA- Last echocardiogram-25 February 2017 Left ventricular cavity size normal. Left ventricular wall thickness mildly increased. No obvious regional wall motion abnormalities. Left ventricular ejection fraction is estimated at 55 %. Abnormal relaxation filling pattern of the left ventricle for age (stage 1 diastolic dysfunction). Normal right ventricular size and function. Severe aortic stenosis (mean gradient 44 mmHg). Unable to estimate the right ventricular systolic pressure. # admit to telemetry for cardiac monitoring of any arrythmias. # non enteric coated aspirin 325 mg stat given in the ER. and daily aspirin and Atorvastatin 80mg daily. # serial electrocardiograms, cardiac enzymes every 6 hours # Echocardiogram after discussing w/ cardiology. # metoprolol succinate or carvedilol by mouth within the first 24 hoursafter ruling out contraindications. # IV heparin after discussing w/ cardiology # check RUQ US to r/o biliary pathology. As Ranked By This Provider Problem List: 1. Abdominal pain 2. ACS (acute coronary syndrome) 3. Palpitations Core Measures/Misc (10/31) Acute Coronary Syndrome ACS Diagnosis: Yes Congestive Heart Failure Congestive Heart Failure Diagnosis No Cerebrovascular Accident CVA/TIA Diagnosis: No VTE (View Protocol) VTE Risk Factors Acute Medical Illness No Mechanical VTE Prophylaxis d/t N/A MechProphylax Ordered No VTE Pharm Prophylaxis d/t NA PharmProphylax ordered Sepsis (View protocol) Sepsis Present: No If YES complete Sepsis Event Note If YES complete Sepsis Event Note Jessica STEPHEN,Judy 09/27/17 1629: Core Measures/Misc (10/31) Sepsis (View protocol) If YES complete Sepsis Event Note If YES complete Sepsis Event Note Attending MD Review Statement Attending Statement Attending MD Statement: examined this patient, discuss w/resident/PA/GEOGRAPHIC AREA INTELLIGENCE OFFICER, agreed w/resident/PA/GEOGRAPHIC AREA INTELLIGENCE OFFICER, reviewed EMR data (avail), reviewed images Attending Assessment/Plan: 66-year-old female past medical history of asymptomatic severe aortic stenosis that has been followed echocardiographically and clinically, history of hysterectomy and previous gastric bypass surgery who is here with a fairly acute onset of dyspnea but started his dyspnea on exertion and now appears to be dyspnea on rest with severe heartburn. She does not complain of any exertional chest pain per se. She appears in mild distress. She has got a mildly elevated bilirubin, mildly elevated AST and a low bicarb with a borderline troponin at 0.14. Will bring her into telemetry, will make sure this is not an ACS- rule out with serial enzymes and EKG. The ED already spoken to the covering rn lab and unless she makes positive troponins, develops chest pain- in that case we will start her on IV unfractionated heparin. I am worried that the possibility of something GI going on, given the bili and the AST and will get a right upper quadrant ultrasound. Will put her on DVT prophylaxis and follow closely.
--- NOTE | 2017-09-27 15:47 | Admission Certification ---
Admission Certification Certification Statement - As attending physician, I certify that at the time of - admission, based on clinical presentation, severity of - symptoms, need for further diagnostic testing and - therapeutic interventions, and risk of adverse outcomes - without in-hospital treatment, in my clinical assessment, - this patient requires an acute hospital stay for a minimum - of two nights or longer. I have also considered psychsocial - factors such as support system, advanced age, financial - issues, cognitive issues, and failed out-patient treatments, - past re-admission history, safety of patient, and lack of - compliance as applicable. Specific rationale supporting this admission is: Severe Aortic stenosis with CP and positive troponin
[2017-09-27 16:44] VITALS: BP 122/76
[2017-09-27 17:05] LABS: PT 12.3 SEC (9.4-12.5); PTT 30 SEC (25-37)
--- NOTE | 2017-09-27 17:25 | CT SCAN REPORT ---
EXAMINATION: CT ANGIOGRAM CHEST WITH AND WITHOUT CONTRAST (CT PULMONARY ANGIOGRAM FOR PE) CLINICAL INFORMATION: Dyspnea, chest pain. COMPARISON: Chest x-ray 09/27/2017. TECHNIQUE: Prior to contrast administration, noncontrast localization images were obtained. Subsequently, multidetector volumetric imaging was performed from the thoracic inlet to below the diaphragms following the administration of 87 mL Optiray 320 intravenous contrast. No contrast reaction reported. Sagittal, coronal, and MIP oblique sagittal reformatted images were obtained on the CT workstation, uploaded to PACS, and reviewed. DLP: 560.19 mGy-cm FINDINGS: QUALITY OF STUDY/CONTRAST BOLUS: Satisfactory. PULMONARY ARTERIES: There is a saddle embolus extending from the right to left main pulmonary arteries. There are extensive emboli on both the right and left sides extending through the segmental and subsegmental pulmonary arteries of all lobes. The largest volume of the thrombus is at the distal right and left main pulmonary artery and extending into the primary and secondary branches of the main pulmonary arteries. THORACIC AORTA: No aneurysm or dissection. LUNG: No focal consolidation, nodules or masses. PLEURA: No pleural effusion or pneumothorax. MEDIASTINUM: Normal heart size. No pericardial effusion. No hilar or mediastinal lymphadenopathy. No evidence of septal bowing. There are coronary artery calcifications. CHEST WALL/AXILLAE: No axillary or internal mammary lymphadenopathy. OSSEOUS STRUCTURES: Degenerative spondylosis of the spine with multilevel disc height narrowing and endplate spurring of the vertebrae. UPPER ABDOMEN: There is reflux of contrast into the right hepatic vein consistent with elevated right-sided heart pressure. There is a surgical suture line associated with the stomach. There is a hypodense lesion at the superolateral splenic margin subcapsular area measuring 2 cm. This has a density measurement of 2 Hounsfield units, consistent with a splenic cyst. IMPRESSION: Extensive bilateral pulmonary emboli with saddle embolus. There is some reflux of contrast into the hepatic veins consistent with elevated right heart pressure. No evidence of septal bowing. VTE: Positive This critical result was discussed with Dr. Arriaga on 09/27/2017, at 4:45 PM and it was ascertained that the content and urgency of the report was understood at the time of direct communication.
--- NOTE | 2017-09-27 17:44 | ULTRASOUND REPORT ---
EXAMINATION: US ABDOMEN LIMITED CLINICAL INFORMATION: Abnormal labs. Epigastric pain. Elevated bilirubin. COMPARISON: CTA chest 09/27/2017 TECHNIQUE: Real-time imaging of the right upper quadrant abdominal viscera. FINDINGS: Exam limited by body habitus and bowel gas. PANCREAS: Not visualized due to bowel gas. LIVER: Normal. The liver demonstrates normal size, contour and echogenicity. No focal lesion or intrahepatic biliary duct dilatation. GALLBLADDER: Status post cholecystectomy. COMMON BILE DUCT: Normal in caliber measuring 0.4 cm in diameter. RIGHT KIDNEY: Normal. No hydronephrosis. No renal calculi or focal parenchymal lesions. The kidney measures 10.0 cm in maximum dimension. FREE FLUID: None. IMPRESSION: Status post cholecystectomy. No bile duct dilatation. No acute changes of the right upper quadrant. The pancreas is not visualized due to bowel gas.
== END 2017-09-27 18:01 | disposition short-term general hospital (02) ==
LOC: ERH 11:43 → ERHI 15:30 → ENRESERV 16:34 → CANRESERV 16:34 → ERH 18:01 → CMPBEDREQ 09-29 01:25
PROVIDERS: Physician Assistant Medical
DX: I25.10 Atherosclerotic heart disease of native coronary artery without angina pectoris (principal); R07.89 Other chest pain; R06.02 Shortness of breath; K21.9 Gastro-esophageal reflux disease without esophagitis; K57.92 Diverticulitis of intestine, part unspecified, without perforation or abscess without bleeding; E66.9 Obesity, unspecified; Z87.891 Personal history of nicotine dependence
CPT/HCPCS: 71046; 82436; 93005; 93010; 96374; 99291; J1644